=== PATIENT | male | born 1945 | race Caucasian/White ===

== ENCOUNTER 2020-08-05 11:21 | Emergency (ER) | payer MEDICARE, SELFPAY ==
[2020-08-05 11:36] VITALS: BP 157/86; PULSE 100; RESP 18; TEMP 36.3; O2SAT 96; BMI 25.1
--- NOTE | 2020-08-05 12:05 | MR_ITS ---
WS: [id number] MRI LUMBAR SPINE WITH AND WITHOUT CONTRAST. HISTORY: Pain in RIGHT leg. COMPARISON: None available. TECHNIQUE: Sagittal and axial multisequence imaging is submitted. Sagittal and axial T1 fat sat seque nces post-ProHance 17 cc IV. Mild increase in the cervical lordosis and thoracic kyphosis. Central shallow disc protrusion at T8-9 . No significant compression of the cord. Straightening of the normal lumbar lordosis. Moderate disc space narrowing and desiccation throughout the lumbar spine. Endplate osteophytes at all levels Conus terminates normally at L1-2 disc level. L1-L2: Annular disc bulging and osteophytosis. Mild facet disease. Mild subarticular recess narrowing . No significant stenosis. L2-L3: Annular disc bulging and osteophytic ridging. Annular fissure centrally with osteophytes and d isc encroachment upon the lateral recesses and subarticular recesses. There is mild central, subartic ular and foraminal narrowing. No high-grade stenosis. L3-L4: Diffuse annular disc bulging and osteophytic ridging. Moderate facet and ligamentum flavum hyp ertrophy. Complete effacement of CSF due to combination of factors as above. Severe central, subartic ular recess with moderate bilateral foraminal stenosis. L4-L5: Diffuse osteophytic ridging and annular disc bulging. Marked ligamentum flavum hypertrophy is asymmetric to the LEFT. Severe central and bilateral subarticular recess and subarticular stenosis. M oderate bilateral foraminal stenosis. L5-S1: Mild annular disc bulging and osteophytic ridging. Mild encroachment and narrowing of the suba rticular recesses with moderate RIGHT foraminal stenosis and mild on the LEFT. No evidence for discitis or osteomyelitis. No cord compression or mass identified. There is a large fluid collection incompletely visualized in the central pelvis which is probably the bladder. MR/MR lumbar spine wo/w con [id number] IMPRESSION: 1. Severe central, bilateral subarticular recess and lateral recess stenosis a t L4-5 with moderate bilateral foraminal stenosis due to combination of disc, o steophytes and facet disease. 2. Severe central, bilateral subarticular and lateral recess stenosis and mode rate bilateral foraminal stenosis at L3-4. 3. Moderate RIGHT foraminal stenosis at L5-S1. 4. No discitis or osteomyelitis. 5. No enhancing mass or lesion on the conus.
--- NOTE | 2020-08-05 12:41 | W.ED.EXTPRO ---
HPI - Extremity Problem General: Chief complaint: Extremity Problem,Nontraumatic Stated complaint: POSSIBLE BLOOD CLOT/ NUMBNESS IN RIGHT LEG Time Seen by Provider: 08/05/20 11:43 History of Present Illness: HPI Narrative: 75-year-old male states in the last couple days he cannot move the right leg. He has severe pain and loss of function he is not had any significant amount of swelling. Not had any fecal incontinence he has not had any significant urinary retention he was does have some BPH symptoms are worse when he stands or walks better with rest but still present. He is not noticed any back pain he is not had any injury. He has no previous history of peripheral artery disease. MD Complaint: extremity pain Onset (ago): day(s) Pain Consistency: constant Location: right Quality: sharp Radiation: distal Relieving factors: rest (Improves but does not resolve) Exacerbating factors: weight bearing and walking Associated symptoms: Deny arthralgias, chest pain, fever(s), myalgias, rash or short of breath Review of Systems Const: Denies: fever(s) ENMT: Denies: throat pain, ear or mastoid pain, nasal discharge or nasal congestion Card: Denies: chest pain, edema, dyspnea on exertion or orthopnea Resp: Denies: dyspnea, productive cough or non-productive cough GI: Denies: abdominal pain, nausea, vomiting, hematemesis, coffee ground emesis, diarrhea, constipation, bloating, hematochezia or melena : Denies: flank pain, dysuria, urinary frequency or urinary urgency Skin/Breast: Denies: rash or pruritus [facility] ED PFSH: Medical History (Updated 08/05/20 @ 14:46 by Georges Turpin DO) Diabetes Physical Exam Const: COMMON NORMALS: no acute distress GENERAL APPEARANCE: cooperative and comfortable ORIENTATION/CONSCIOUSNESS: Yes awake, Yes oriented to person, Yes oriented to place and Yes oriented to time HENMT: COMMON NORMALS: normocephalic, atraumatic and hearing grossly normal bilaterally HEAD & SCALP: normocephalic and atraumatic Neck/C-Spine: COMMON NORMALS: no JVD Resp: COMMON NORMALS: normal respiratory effort, No retractions, No use of accessory muscles and clear to auscultation bilaterally AUSCULTATION: clear to auscultation bilaterally Cardio: COMMON NORMALS: no JVD, regular rate, regular rhythm and No murmurs present (Cardio) RATE: regular rate RHYTHM: regular rhythm GI: COMMON NORMALS: Soft to palpation and No hepatosplenomegaly present AUSCULTATION: Yes normoactive bowel sounds PALPATION: Yes Soft to palpation, No Tenderness to palpation present (GI), No Guarding due to palpation present (GI) and Yes No hepatosplenomegaly present Extremity: COMMON NORMALS: normal to inspection, capillary refill normal, no clubbing, cyanosis or edema, no calf tenderness and no pedal edema Neuro: SENSORIUM/ORIENTATION: Yes oriented to person, Yes oriented to place and Yes oriented to time Skin: COMMON NORMALS: no rashes or lesions noted GENERAL SKIN EXAM: no rashes or lesions noted Course Vital Signs: Vital signs: Vital Signs Temperature 97.3 F L 08/05/20 11:36 Pulse Rate 100 08/05/20 11:36 Respiratory Rate 18 08/05/20 11:36 Blood Pressure 157/86 08/05/20 11:36 Pulse Oximetry 96 08/05/20 11:36 MDM - Extremity (Nontraumatic) MDM Narrative: Medical decision making narrative: Number disc disease with L4-5 nerve root compression. Patient is doing better he is able to walk and ambulate and use the leg again he has no evidence of cauda equina syndrome we will go ahead and discharge him home given steroids here and discharge home with p.o. steroids muscle relaxers he already has hydrocodone and we will get him set up with Dr. Richard return if has further problems or uncontrollable pain. Advised patient to not lift anything greater than 10 pounds and he should try to stay off his feet as much as possible. Lab Data: Labs: Lab Results 08/05/20 08/05/20 Range/Units 12:37 12:37 WBC 3.2 L (4.0-10.0) 10^3/ uL RBC 3.45 L (4.1-5.3) 10^6/u L Hgb 11.0 L (11.7-16.6) g/dL Hct 32.3 L (42.0-52.0) % MCV 93.6 (80-94) fL MCH 31.9 (28.0-34.0) pg MCHC 34.1 (30.0-36.0) g/dL RDW 14.5 (12.1-15.1) % Plt Count 117 L (130-400) 10^3/c mm MPV 10.8 H (7.4-10.4) fL Neut % (Auto) 60.9 % Lymph % (Auto) 21.9 % [place] % (Auto) 8.6 % Eos % (Auto) 7.7 % Baso % (Auto) 0.6 % Neut # (Auto) 1.97 (1.8-7.7) 10^3/u L Lymph # (Auto) 0.7 L (0.8-4.8) 10^3/u L [place] # (Auto) 0.3 (0.2-0.9) 10^3/u L Eos # (Auto) 0.3 (0.0-0.8) 10^3/u L Baso # (Auto) 0.0 (0.0-0.1) 10^3/u L Nucleated RBC % (a uto) 0 % Nucleated RBCs # 0.0 /100WBC Sodium Cancelled Potassium Cancelled Chloride Cancelled Carbon Dioxide Cancelled Anion Gap Cancelled BUN Cancelled Creatinine Cancelled GFR Calculation Cancelled Glucose Cancelled Calculated Osmolal ity Cancelled Calcium Cancelled Total Bilirubin Cancelled AST Cancelled ALT Cancelled Alkaline Phosphata se Cancelled Total Protein Cancelled Albumin Cancelled Globulin Cancelled Discharge Plan Discharge Patient Disposition: Home Clinical Impression: Lumbar disc herniation with radiculopathy Condition: Stable Prescriptions: New Zofran 4 mg tablet 4 mg PO Q6H PRN (Reason: nausea and vomiting) Qty: 15 RF: 0 diclofenac sodium 75 mg tablet,delayed release (DR/EC) 75 mg PO Q12H PRN (Reason: pain) Qty: 20 RF: 0 Medrol (Freddy) 4 mg tablets,dose pack See Rx Instructions .ROUTE .COMPLEX Qty: 21 RF: 0 tizanidine 2 mg capsule 2 mg PO Q8H PRN (Reason: muscle spasticity) Qty: 20 RF: 0 No Action levothyroxine 75 mcg tablet 75 mcg PO DAILY RF: 0 hydrocodone-acetaminophen 7.5-325 mg tablet 1 tab PO Q4H PRN (Reason: Pain) RF: 0 ferrous sulfate 325 mg (65 mg iron) tablet 325 mg PO DAILY RF: 0 omeprazole 20 mg capsule,delayed release(DR/EC) 20 mg PO DAILY RF: 0 olmesartan 5 mg tablet 5 mg PO DAILY RF: 0 rosuvastatin 10 mg tablet 10 mg PO DAILY RF: 0 Janumet XR 50-1,000 mg tablet, ER multiphase 24 hr 1 tab PO BID RF: 0 Discharge Orders: Discharge Order (Routine); Ordered 08/05/20 Ordered By: Georges Turpin Referrals: Jacome,BENNY ZamoranoN [Primary Care Provider] - Coding Level of Care Code ED Warehouse Order Selector for Chg Fwd Exam Comprehensive
[2020-08-05 13:19] LABS: Basophils % 0.6 %; Eosinophils # 0.3 10^3/uL (0.0-0.8); Eosinophils % 7.7 %; Hematocrit 32.3 % (42.0-52.0); Lymphocytes # 0.7 10^3/uL (0.8-4.8); Lymphocytes % 21.9 %; Mean Corpuscular HGB Conc 34.1 g/dL (30.0-36.0); Mean Corpuscular Hemoglobin 31.9 pg (28.0-34.0); Mean Corpuscular Volume 93.6 fL (80-94); Mean Platelet Volume 10.8 fL (7.4-10.4); Monocytes # 0.3 10^3/uL (0.2-0.9); Monocytes % 8.6 %; Neutrophils # 1.97 10^3/uL (1.8-7.7); Neutrophils % 60.9 %; Nucleated Red Blood Cells % 0 %; Platelet Count 117 10^3/cmm (130-400); Red Blood Count 3.45 10^6/uL (4.1-5.3); Red Cell Distribution Width 14.5 % (12.1-15.1); White Blood Count 3.2 10^3/uL (4.0-10.0)
[2020-08-05] MEDS: dexamethasone 4 mg/mL INJ 10 MG IVP (15:21)
[2020-08-05 15:28] VITALS: BP 161/86; PULSE 90; RESP 18; O2SAT 98
--- NOTE | 2020-08-05 16:27 | DCPLANNER ---
focused factory manager was asked to schedule a follow up appointment for patient with ortho. focused factory manager called the ortho clinic, spoke with Blanca, gave clinic patients information. focused factory manager was told that patients information would be printed and reviewed. Clinic will call patient with appointment information.
--- NOTE | 2020-08-09 14:33 | DCPLANNER ---
Patient had an appointment scheduled for 08.09.20 with ortho - patient did attend the appointment.
== END 2020-08-05 15:28 | disposition home or self-care (01) ==
PROVIDERS: Emergency Provider Family Medicine; PCP Nurse Practitioner Family
DX: M51.16 Intervertebral disc disorders with radiculopathy, lumbar region (principal); E11.9 Type 2 diabetes mellitus without complications
CPT/HCPCS: 12345; 72158; 85025; 96374; 96375; 99282; 99283; A9579; J1100

== ENCOUNTER → 2020-08-09 10:29 | Outpatient (BNVA) | payer MEDICARE, SELFPAY | PROVIDERS: PCP Nurse Practitioner Family; Referring Provider Nurse Practitioner Family; Visit Provider Orthopaedic Surgery | DX: M51.16 Intervertebral disc disorders with radiculopathy, lumbar region (principal); M48.061 Spinal stenosis, lumbar region without neurogenic claudication | CPT/HCPCS: 72114 ==

== ENCOUNTER → 2020-08-10 12:13 | Outpatient (BNVA) | payer MEDICARE, SELFPAY | PROVIDERS: PCP Nurse Practitioner Family; Referring Provider Orthopaedic Surgery; Visit Provider Anesthesiology Pain Medicine | DX: M48.062 Spinal stenosis, lumbar region with neurogenic claudication (principal); M51.17 Intervertebral disc disorders with radiculopathy, lumbosacral region; Z79.891 Long term (current) use of opiate analgesic | CPT/HCPCS: 99204 ==

== ENCOUNTER → 2020-08-17 12:26 | Outpatient (BNVA) | payer MEDICARE, SELFPAY | PROVIDERS: PCP Nurse Practitioner Family; Visit Provider Anesthesiology Pain Medicine | DX: M54.16 Radiculopathy, lumbar region (principal); M48.062 Spinal stenosis, lumbar region with neurogenic claudication; E11.9 Type 2 diabetes mellitus without complications | CPT/HCPCS: 64483; 64484; J1100; J3490 ==

== ENCOUNTER 2020-08-19 16:28 | Emergency (ER) | payer MEDICARE, SELFPAY ==
[2020-08-19] VITALS (9 sets, daily range): BP systolic 134–177; BP diastolic 74–99; PULSE 101–116; RESP 14–29; TEMP 37.2–38.6; O2SAT 92–96; BMI 26.9
--- NOTE | 2020-08-19 16:45 | CTR_ITS ---
PROCEDURE INFORMATION: Exam: CT Head Without Contrast Exam date and time: 08/19/2020 4:46 PM Age: 75 years old Clinical indication: Weakness, facial; Patient HX: R facial droop AMS confusion lkw 24 hrs ago; Additional info: Stroke like symptoms TECHNIQUE: Imaging protocol: Computed tomography of the head without contrast. Radiation optimization: All CT scans at this facility use at least one of these dose optimization techniques: automated exposure control; mA and/or kV adjustment per patient size (includes targeted exams where dose is matched to clinical indication); or iterative reconstruction. COMPARISON: No relevant prior studies available. RADIATION DOSE METRICS: Total DLP (mGy-cm): 897.44 FINDINGS: Brain: Mild diffuse cortical volume loss. Mild hypodensities in supratentorial periventricular and subcortical white matter. No intracranial hemorrhage. Cerebral ventricles: No ventriculomegaly. Bones/joints: Unremarkable. No acute fracture. Paranasal sinuses: Mucosal thickening in the right maxillary sinus. Mastoid air cells: Visualized mastoid air cells are well aerated. Vasculature: No hyperdense artery. Soft tissues: Unremarkable. CT/CT head wo con* [id number] IMPRESSION: 1. No acute intracranial abnormality. 2. Mild microangiopathy. Radiation Dose CTDIVOL = (mGy): DLP = 897.44 (mGy-cm)
--- NOTE | 2020-08-19 17:11 | XRR_ITS ---
PROCEDURE INFORMATION: Exam: XR Chest, 1 View Exam date and time: 08/19/2020 6:02 PM Age: 75 years old Clinical indication: Cough; Patient HX: Best possible image; Additional info: Dyspnea/cough TECHNIQUE: Imaging protocol: XR of the chest Views: 1 view. COMPARISON: CR Chest 2 views* [id number] 04/01/2019 11:14 AM FINDINGS: Lungs: Subtle ground-glass opacities in both lung bases. The central and upper lung zones are clear. Pleural space: Unremarkable. No pleural effusion. No pneumothorax. Heart/Mediastinum: Unremarkable. No cardiomegaly. Bones/joints: Unremarkable. XR/XR chest 1V portable [id number] IMPRESSION: Suspected mild bibasilar pneumonia.
[2020-08-19] MEDS: ondansetron 2 mg/ML SDV 2 mL 4 MG IVP (17:24)
[2020-08-19 17:31] LABS: Basophils % 0.3 %; Eosinophils % 0.3 %; Hematocrit 35.7 % (42.0-52.0); Hemoglobin 12.5 g/dL (11.7-16.6); Lymphocytes # 0.4 10^3/uL (0.8-4.8); Lymphocytes % 10.2 %; Mean Corpuscular Hemoglobin 31.9 pg (28.0-34.0); Mean Corpuscular Volume 91.1 fL (80-94); Mean Platelet Volume 10.3 fL (7.4-10.4); Monocytes # 0.4 10^3/uL (0.2-0.9); Monocytes % 9.4 %; Neutrophils # 2.91 10^3/uL (1.8-7.7); Neutrophils % 78.5 %; Nucleated Red Blood Cells % 0 %; Platelet Count 131 10^3/cmm (130-400); Red Blood Count 3.92 10^6/uL (4.1-5.3); Red Cell Distribution Width 14.2 % (12.1-15.1); White Blood Count 3.7 10^3/uL (4.0-10.0)
[2020-08-19 17:41] LABS: Alanine Aminotransferase 47 U/L (0-41); Albumin Level 3.4 g/dL (3.5-5.2); Alkaline Phosphatase 105 IU/L (40-130); Anion Gap 14.7 (5-19); Aspartate Amino Transferase 57 U/L (0-40); Blood Urea Nitrogen 9 mg/dL (8-23); Calcium 8.4 mg/dL (8.5-10.5); Carbon Dioxide 25 mmol/L (22-29); Chloride 97 mmol/L (98-107); Creatine Phosphokinase 58 U/L (39-308); Globulin 2.4 g/dL (1.3-4.6); Glucose 98 mg/dL (65-115); Lipase 37 U/L (13-60); Magnesium 1.5 mg/dL (1.7-2.3); Osmolality Calculated 275 mOsm/kg (285-295); Potassium 3.7 mmol/L (3.5-5.1); Sodium 133 mmol/L (136-145); Total Bilirubin 1.6 mg/dL (0.15-1.2); Total Protein 5.8 g/dL (6.6-8.7)
--- NOTE | 2020-08-19 18:21 | CTR_ITS ---
PROCEDURE INFORMATION: Exam: CT Lumbar Spine Without Contrast Exam date and time: 08/19/2020 6:22 PM Age: 75 years old Clinical indication: Patient HX: C/O rle pain; Additional info: R radicular leg pain TECHNIQUE: Imaging protocol: Computed tomography images of the lumbar spine without contrast. Radiation optimization: All CT scans at this facility use at least one of these dose optimization techniques: automated exposure control; mA and/or kV adjustment per patient size (includes targeted exams where dose is matched to clinical indication); or iterative reconstruction. COMPARISON: MR lumbar spine wo/w con [id number] 08/05/2020 1:08 PM RADIATION DOSE METRICS: Total DLP (mGy-cm): 2163.18 FINDINGS: Vertebrae: The vertebral body alignment and stature is maintained. The facets are intact with hypertrophic degenerative changes, greatest at L3-L4, L4-L5, and L5-S1. Multilevel anterior and posterior endplate spurring. L1-L2: Mild disc bulge. Degenerative facets. Mild bilateral foraminal stenosis. Mild central canal stenosis. L2-L3: Circumferential disc bulge. Degenerative facets. No foraminal stenosis. Moderate-severe central canal stenosis. L3-L4: Circumferential disc bulge. Degenerative facets. Severe left and mild right foraminal stenosis. Severe central canal stenosis. L4-L5: Circumferential disc bulge. Degenerative facets. Moderate bilateral foraminal stenosis. Severe central canal stenosis. L5-S1: Mild disc bulge. Degenerative facets. Severe right and moderate left foraminal stenosis. No central canal stenosis. Soft tissues: Unremarkable. CT/CT lumbar spine wo con* [id number] IMPRESSION: 1. Discogenic, spondylitic, and hypertrophic facet degenerative changes contribute to multilevel central canal and foraminal stenosis as described. 2. The most significant central canal stenosis is moderate to severe at L2-L3 and severe at L3-L4 and L4-L5. 3. The most significant foraminal stenosis is severe on the left at L3-L4 and severe on the right at L5-S1. Radiation Dose CTDIVOL = (mGy): DLP = 2163.18 (mGy-cm)
--- NOTE | 2020-08-19 18:21 | W.ED.NEUROSD ---
Documented by User: Georges Turpin DO 08/20/20 09:15 HPI - Neuro Symptoms/Deficit General: Chief Complaint: Neuro Symptoms/Deficit Stated Complaint: POSSIBLE STROKE Time Seen by Provider: 08/19/20 16:34 History of Present Illness: HPI Narrative: 75-year-old male presents emergency room complaining of weakness in his legs with pain in his right leg in particular. He is very difficult time moving his legs. His last known well time was yesterday at around 4 in the afternoon. Neighbors went to check on him and called 911. On arrival here he moves both of his extremities well he answers questions appropriately follows all commands but does states he does not feel good he is also noted to have a fever and has pain and weakness in his right leg he can lift his left leg to cross his legs but does not lift the right leg at all he will not lift his leg off the bed for testing at all. Onset (ago): unknown Timing confirmed by: other (Neighbors) Location: right leg Severity: moderate Quality: weak Relieving factors: none Exacerbating factors: none Context: found down On Anticoagulants: No Associated symptoms: Reports malaise and weakness; Deny chest pain, cough, diaphoresis, fevers/chills, headache(s), anorexia, nausea, seizures, short of breath, syncope, tingling, vertigo or vomiting Treatments Prior to Arrival: none Review of Systems Const: Reports: malaise; Denies: diaphoresis Card: Denies: chest pain or syncope Resp: Denies: dyspnea, productive cough or non-productive cough GI: Denies: nausea or vomiting : Denies: flank pain, dysuria, urinary frequency or urinary urgency Neuro: Denies: headache(s) or vertigo PFSH ED PFSH: Medical History Diabetes Social History Smoking and tobacco status: never smoked Second hand smoke exposure: No Alcohol intake: former History of recent travel: No NIH stroke score NIHSS: Level Of Consciousness - 1a: 1 Level Of Consciousness Questions - 1b: Both Correct Level Of Consciousness Commands - 1c: Both Correct Best Gaze - 2: Normal Visual Vera - 3: No Visual Loss Facial Palsy - 4: Normal Motor Arm Right - 5: No Drift Motor Arm Left - 5: No Drift Motor Leg Right - 6: Effort Against Whiting Motor Leg Left - 6: Effort Against Whiting Limb Ataxia - 7: Present In Two Limbs Sensory - 8: Normal Best Language - 9: No Aphasia Dysarthia - 10: Mild/Moderate Dysarthia Extinction And Inattention - 11: 0 Score: Total Score: 8 Physical Exam Const: COMMON NORMALS: no acute distress GENERAL APPEARANCE: cooperative and comfortable ORIENTATION/CONSCIOUSNESS: Yes awake, Yes oriented to person, Yes oriented to place and Yes oriented to time HENMT: COMMON NORMALS: normocephalic, atraumatic and hearing grossly normal bilaterally HEAD & SCALP: normocephalic and atraumatic Eye: COMMON NORMALS: Equal, round and reactive pupils present, EOMs intact bilaterally, conjunctivae normal and no scleral icterus CONJUNCTIVA: Yes conjunctivae normal PUPIL: Yes Equal, round and reactive pupils present Neck/C-Spine: COMMON NORMALS: full ROM, no lymphadenopathy, supple and no JVD Resp: COMMON NORMALS: normal respiratory effort, No retractions, No use of accessory muscles and clear to auscultation bilaterally AUSCULTATION: clear to auscultation bilaterally Cardio: COMMON NORMALS: no JVD, regular rate, regular rhythm and No murmurs present (Cardio) RATE: regular rate RHYTHM: regular rhythm GI: COMMON NORMALS: Soft to palpation and No hepatosplenomegaly present AUSCULTATION: Yes normoactive bowel sounds PALPATION: Yes Soft to palpation, No Tenderness to palpation present (GI), No Guarding due to palpation present (GI) and Yes No hepatosplenomegaly present Extremity: COMMON NORMALS: normal to inspection, capillary refill normal, no clubbing, cyanosis or edema, no calf tenderness and no pedal edema Neuro: SENSORIUM/ORIENTATION: Yes oriented to person, Yes oriented to place and Yes oriented to time Skin: COMMON NORMALS: no rashes or lesions noted GENERAL SKIN EXAM: no rashes or lesions noted Course Vital Signs: Vital signs: Vital Signs Temperature 99 F 08/19/20 21:00 Pulse Rate 102 H 08/19/20 23:00 Respiratory Rate 17 08/19/20 23:00 Blood Pressure 136/80 08/19/20 23:00 Pulse Oximetry 95 08/19/20 23:00 MDM - Neuro Symptoms/Deficit MDM Narrative: Medical decision making narrative: Patient presents with what appears to be altered mental status with right lower leg weakness stroke score is 8 however some of it is just bilateral weakness in his lower extremities. He has no facial palsy and answers questions appropriately. He has a fever as well as mildly tachycardic and very mild depressed oxygen saturations. Discussed with Dr. Goddard, care transferred at change of shift see his note for final diagnosis and disposition Lab Data: Labs: Lab Results 08/19/20 08/19/20 08/19/20 Range/Units 17:00 17:00 17:00 WBC 3.7 L (4.0-10.0) 10^3/ uL RBC 3.92 L (4.1-5.3) 10^6/u L Hgb 12.5 (11.7-16.6) g/dL Hct 35.7 L (42.0-52.0) % MCV 91.1 (80-94) fL MCH 31.9 (28.0-34.0) pg MCHC 35.0 (30.0-36.0) g/dL RDW 14.2 (12.1-15.1) % Plt Count 131 (130-400) 10^3/c mm MPV 10.3 (7.4-10.4) fL Neut % (Auto) 78.5 % Lymph % (Auto) 10.2 % Mitchell % (Auto) 9.4 % Eos % (Auto) 0.3 % Baso % (Auto) 0.3 % Neut # (Auto) 2.91 (1.8-7.7) 10^3/u L Lymph # (Auto) 0.4 L (0.8-4.8) 10^3/u L Mitchell # (Auto) 0.4 (0.2-0.9) 10^3/u L Eos # (Auto) 0.0 (0.0-0.8) 10^3/u L Baso # (Auto) 0.0 (0.0-0.1) 10^3/u L Nucleated RBC % (a uto) 0 % Nucleated RBCs # 0.0 /100WBC Sodium 133 L (136-145) mmol/L Potassium 3.7 (3.5-5.1) mmol/L Chloride 97 L (98-107) mmol/L Carbon Dioxide 25 (22-29) mmol/L Anion Gap 14.7 (5-19) BUN 9 (8-23) mg/dL Creatinine 0.6 L (0.7-1.2) mg/dL GFR Calculation Not Reportable Glucose 98 (65-115) mg/dL Calculated Osmolal ity 275 L (285-295) mOsm/k g Lactic Acid 2.0 (0.5-2.2) mmol/L Calcium 8.4 L (8.5-10.5) mg/dL Magnesium 1.5 L (1.7-2.3) mg/dL Total Bilirubin 1.6 H (0.15-1.2) mg/dL AST 57 H (0-40) U/L ALT 47 H (0-41) U/L Alkaline Phosphata se 105 (40-130) IU/L Creatine Kinase 58 (39-308) U/L Total Protein 5.8 L (6.6-8.7) g/dL Albumin 3.4 L (3.5-5.2) g/dL Globulin 2.4 (1.3-4.6) g/dL Lipase 37 (13-60) U/L Urine Color (Yellow) Urine Appearance (CLEAR) Urine pH (5-7) Ur Specific Gravit y (1.005-1.030) Urine Protein (Negative) Urine Glucose (UA) (Normal) Urine Ketones (Negative) Urine Blood (Negative) Urine Nitrate (Negative) Urine Bilirubin (Negative) Urine Urobilinogen (Negative) mg/dL Ur Leukocyte Ashley ase (Negative) SARS-CoV-2 Ag (Rap id) (Negative) 08/19/20 08/19/20 Range/Units 20:02 20:03 WBC (4.0-10.0) 10^3/ uL RBC (4.1-5.3) 10^6/u L Hgb (11.7-16.6) g/dL Hct (42.0-52.0) % MCV (80-94) fL MCH (28.0-34.0) pg MCHC (30.0-36.0) g/dL RDW (12.1-15.1) % Plt Count (130-400) 10^3/c mm MPV (7.4-10.4) fL Neut % (Auto) % Lymph % (Auto) % Mitchell % (Auto) % Eos % (Auto) % Baso % (Auto) % Neut # (Auto) (1.8-7.7) 10^3/u L Lymph # (Auto) (0.8-4.8) 10^3/u L Mitchell # (Auto) (0.2-0.9) 10^3/u L Eos # (Auto) (0.0-0.8) 10^3/u L Baso # (Auto) (0.0-0.1) 10^3/u L Nucleated RBC % (a uto) % Nucleated RBCs # /100WBC Sodium (136-145) mmol/L Potassium (3.5-5.1) mmol/L Chloride (98-107) mmol/L Carbon Dioxide (22-29) mmol/L Anion Gap (5-19) BUN (8-23) mg/dL Creatinine (0.7-1.2) mg/dL GFR Calculation Glucose (65-115) mg/dL Calculated Osmolal ity (285-295) mOsm/k g Lactic Acid (0.5-2.2) mmol/L Calcium (8.5-10.5) mg/dL Magnesium (1.7-2.3) mg/dL Total Bilirubin (0.15-1.2) mg/dL AST (0-40) U/L ALT (0-41) U/L Alkaline Phosphata se (40-130) IU/L Creatine Kinase (39-308) U/L Total Protein (6.6-8.7) g/dL Albumin (3.5-5.2) g/dL Globulin (1.3-4.6) g/dL Lipase (13-60) U/L Urine Color Yellow (Yellow) Urine Appearance Clear (CLEAR) Urine pH 6.5 (5-7) Ur Specific Gravit y 1.015 (1.005-1.030) Urine Protein Neg (Negative) Urine Glucose (UA) 4+ H (Normal) Urine Ketones Negative (Negative) Urine Blood Neg (Negative) Urine Nitrate Negative (Negative) Urine Bilirubin Neg (Negative) Urine Urobilinogen 4 H (Negative) mg/dL Ur Leukocyte Ashley ase Negative (Negative) SARS-CoV-2 Ag (Rap id) Positive H (Negative) Discharge Plan Discharge Patient Disposition: Left Against Medical Advice Clinical Impression: Pneumonia due to 2019 novel coronavirus Condition: Stable Prescriptions: New dexamethasone 6 mg tablet 6 mg PO DAILY Qty: 5 RF: 0 No Action cephalexin [Keflex] 500 mg capsule 500 mg PO BID 7 Days Qty: 14 RF: 0 silver sulfadiazine [Silvadene] 1 % cream 1 applic topical BID 14 Days Qty: 20 RF: 0 gabapentin 100 mg capsule 100 mg PO BID Qty: 60 RF: 0 levothyroxine 75 mcg tablet 75 mcg PO DAILY RF: 0 hydrocodone-acetaminophen 7.5-325 mg tablet 1 tab PO Q4H PRN (Reason: Pain) RF: 0 ferrous sulfate 325 mg (65 mg iron) tablet 325 mg PO DAILY RF: 0 omeprazole 20 mg capsule,delayed release(DR/EC) 20 mg PO DAILY RF: 0 olmesartan 5 mg tablet 5 mg PO DAILY RF: 0 rosuvastatin 10 mg tablet 10 mg PO DAILY RF: 0 Janumet XR 50-1,000 mg tablet, ER multiphase 24 hr 1 tab PO BID RF: 0 ondansetron HCl [Zofran] 4 mg tablet 4 mg PO Q6H PRN (Reason: nausea and vomiting) Qty: 15 RF: 0 diclofenac sodium 75 mg tablet,delayed release (DR/EC) 75 mg PO Q12H PRN (Reason: pain) Qty: 20 RF: 0 tizanidine 2 mg capsule 2 mg PO Q8H PRN (Reason: muscle spasticity) Qty: 20 RF: 0 Referrals: Ayaz,FABIOLA Zamorano [Primary Care Provider] - 1-3 days Discharge Diet: Advance as tolerated Discharge Activity: Increase activity as tolerated Patient Instructions: Viral Pneumonia (ED) Activity Restrictions/Additional Instructions: Medications as directed. Return for changes in mental status, worsening shortness of breath, inability to control fever, other concerning symptoms. Check your temperature often, and treat fevers greater than 100 appropriately with Tylenol. Have a family member called to check on you several times a day to ensure that you are doing okay. Coding Level of Care Code ED Gift Consultant for Chg Fwd Documented by User: Sean Goddard DO 08/20/20 04:33 HPI - Neuro Symptoms/Deficit General: Chief Complaint: Neuro Symptoms/Deficit Stated Complaint: POSSIBLE STROKE Time Seen by Provider: 08/19/20 16:34 PFSH ED PFSH: Medical History Diabetes Social History Smoking and tobacco status: never smoked Second hand smoke exposure: No Alcohol intake: former History of recent travel: No Course Vital Signs: Vital signs: Vital Signs Temperature 99 F 08/19/20 21:00 Pulse Rate 102 H 08/19/20 23:00 Respiratory Rate 17 08/19/20 23:00 Blood Pressure 136/80 08/19/20 23:00 Pulse Oximetry 95 08/19/20 23:00 MDM - Neuro Symptoms/Deficit MDM Narrative: Medical decision making narrative: 75-year-old male checked out to me at shift change by Dr. Turpin. This patient was complaining of pain and weakness in his legs as well as an upper extremity. He had a fever of 101.5. He was not feeling well. During his ER course, he urinated on the CT table. He asked similar questions several times. He is, however, awake, alert, and oriented. He knows his situation. His mental status improved even more after his temperature came down below 100. His white blood cell count is 3.7. His sodium is 133. His head CT is negative. He does not have a urinary tract infection. He has mild bilateral pneumonitis on chest x-ray, and a positive Covid rapid antigen here. I suspect the cause of his mild mental status change and not feeling well is COVID-19. He lives alone. I went over the patient's results with him, expressed my concern that he is likely to get more sick as opposed to less sick as he is early in this illness. He has x-ray findings. He is not hypoxic however. I expressed the need to put him in the hospital. He said that he did not want to stay. I reiterated that if he gets confused at home, while he lives alone, he may not be able to take care of himself well, and can get sicker very quickly and possibly end up dying. He states, I rather at home and stay here in the hospital . Out of our concern, I contacted the patient's sister, who is living out of town at the moment. I told her the circumstances, which were essentially that he is awake and alert enough to deny treatment, and we may not treat him against his will. We expressed our concern about him going home alone. Have to be quarantined. She states family members can call and check on him frequently. The situation is extremely concerning, as he is likely not to do well clinically, but our hands are tied at this point because of his decision. He signed an AMA form, and left AGAINST MEDICAL ADVICE. Lab Data: Labs: Lab Results 08/19/20 08/19/20 08/19/20 Range/Units 17:00 17:00 17:00 WBC 3.7 L (4.0-10.0) 10^3/ uL RBC 3.92 L (4.1-5.3) 10^6/u L Hgb 12.5 (11.7-16.6) g/dL Hct 35.7 L (42.0-52.0) % MCV 91.1 (80-94) fL MCH 31.9 (28.0-34.0) pg MCHC 35.0 (30.0-36.0) g/dL RDW 14.2 (12.1-15.1) % Plt Count 131 (130-400) 10^3/c mm MPV 10.3 (7.4-10.4) fL Neut % (Auto) 78.5 % Lymph % (Auto) 10.2 % Mitchell % (Auto) 9.4 % Eos % (Auto) 0.3 % Baso % (Auto) 0.3 % Neut # (Auto) 2.91 (1.8-7.7) 10^3/u L Lymph # (Auto) 0.4 L (0.8-4.8) 10^3/u L Mitchell # (Auto) 0.4 (0.2-0.9) 10^3/u L Eos # (Auto) 0.0 (0.0-0.8) 10^3/u L Baso # (Auto) 0.0 (0.0-0.1) 10^3/u L Nucleated RBC % (a uto) 0 % Nucleated RBCs # 0.0 /100WBC Sodium 133 L (136-145) mmol/L Potassium 3.7 (3.5-5.1) mmol/L Chloride 97 L (98-107) mmol/L Carbon Dioxide 25 (22-29) mmol/L Anion Gap 14.7 (5-19) BUN 9 (8-23) mg/dL Creatinine 0.6 L (0.7-1.2) mg/dL GFR Calculation Not Reportable Glucose 98 (65-115) mg/dL Calculated Osmolal ity 275 L (285-295) mOsm/k g Lactic Acid 2.0 (0.5-2.2) mmol/L Calcium 8.4 L (8.5-10.5) mg/dL Magnesium 1.5 L (1.7-2.3) mg/dL Total Bilirubin 1.6 H (0.15-1.2) mg/dL AST 57 H (0-40) U/L ALT 47 H (0-41) U/L Alkaline Phosphata se 105 (40-130) IU/L Creatine Kinase 58 (39-308) U/L Total Protein 5.8 L (6.6-8.7) g/dL Albumin 3.4 L (3.5-5.2) g/dL Globulin 2.4 (1.3-4.6) g/dL Lipase 37 (13-60) U/L Urine Color (Yellow) Urine Appearance (CLEAR) Urine pH (5-7) Ur Specific Gravit y (1.005-1.030) Urine Protein (Negative) Urine Glucose (UA) (Normal) Urine Ketones (Negative) Urine Blood (Negative) Urine Nitrate (Negative) Urine Bilirubin (Negative) Urine Urobilinogen (Negative) mg/dL Ur Leukocyte Ashley ase (Negative) SARS-CoV-2 Ag (Rap id) (Negative) 08/19/20 08/19/20 Range/Units 20:02 20:03 WBC (4.0-10.0) 10^3/ uL RBC (4.1-5.3) 10^6/u L Hgb (11.7-16.6) g/dL Hct (42.0-52.0) % MCV (80-94) fL MCH (28.0-34.0) pg MCHC (30.0-36.0) g/dL RDW (12.1-15.1) % Plt Count (130-400) 10^3/c mm MPV (7.4-10.4) fL Neut % (Auto) % Lymph % (Auto) % Mitchell % (Auto) % Eos % (Auto) % Baso % (Auto) % Neut # (Auto) (1.8-7.7) 10^3/u L Lymph # (Auto) (0.8-4.8) 10^3/u L Mitchell # (Auto) (0.2-0.9) 10^3/u L Eos # (Auto) (0.0-0.8) 10^3/u L Baso # (Auto) (0.0-0.1) 10^3/u L Nucleated RBC % (a uto) % Nucleated RBCs # /100WBC Sodium (136-145) mmol/L Potassium (3.5-5.1) mmol/L Chloride (98-107) mmol/L Carbon Dioxide (22-29) mmol/L Anion Gap (5-19) BUN (8-23) mg/dL Creatinine (0.7-1.2) mg/dL GFR Calculation Glucose (65-115) mg/dL Calculated Osmolal ity (285-295) mOsm/k g Lactic Acid (0.5-2.2) mmol/L Calcium (8.5-10.5) mg/dL Magnesium (1.7-2.3) mg/dL Total Bilirubin (0.15-1.2) mg/dL AST (0-40) U/L ALT (0-41) U/L Alkaline Phosphata se (40-130) IU/L Creatine Kinase (39-308) U/L Total Protein (6.6-8.7) g/dL Albumin (3.5-5.2) g/dL Globulin (1.3-4.6) g/dL Lipase (13-60) U/L Urine Color Yellow (Yellow) Urine Appearance Clear (CLEAR) Urine pH 6.5 (5-7) Ur Specific Gravit y 1.015 (1.005-1.030) Urine Protein Neg (Negative) Urine Glucose (UA) 4+ H (Normal) Urine Ketones Negative (Negative) Urine Blood Neg (Negative) Urine Nitrate Negative (Negative) Urine Bilirubin Neg (Negative) Urine Urobilinogen 4 H (Negative) mg/dL Ur Leukocyte Ashley ase Negative (Negative) SARS-CoV-2 Ag (Rap id) Positive H (Negative) Discharge Plan Discharge Patient Disposition: Left Against Medical Advice Clinical Impression: Pneumonia due to 2019 novel coronavirus Condition: Stable Prescriptions: New dexamethasone 6 mg tablet 6 mg PO DAILY Qty: 5 RF: 0 No Action cephalexin [Keflex] 500 mg capsule 500 mg PO BID 7 Days Qty: 14 RF: 0 silver sulfadiazine [Silvadene] 1 % cream 1 applic topical BID 14 Days Qty: 20 RF: 0 gabapentin 100 mg capsule 100 mg PO BID Qty: 60 RF: 0 levothyroxine 75 mcg tablet 75 mcg PO DAILY RF: 0 hydrocodone-acetaminophen 7.5-325 mg tablet 1 tab PO Q4H PRN (Reason: Pain) RF: 0 ferrous sulfate 325 mg (65 mg iron) tablet 325 mg PO DAILY RF: 0 omeprazole 20 mg capsule,delayed release(DR/EC) 20 mg PO DAILY RF: 0 olmesartan 5 mg tablet 5 mg PO DAILY RF: 0 rosuvastatin 10 mg tablet 10 mg PO DAILY RF: 0 Janumet XR 50-1,000 mg tablet, ER multiphase 24 hr 1 tab PO BID RF: 0 ondansetron HCl [Zofran] 4 mg tablet 4 mg PO Q6H PRN (Reason: nausea and vomiting) Qty: 15 RF: 0 diclofenac sodium 75 mg tablet,delayed release (DR/EC) 75 mg PO Q12H PRN (Reason: pain) Qty: 20 RF: 0 tizanidine 2 mg capsule 2 mg PO Q8H PRN (Reason: muscle spasticity) Qty: 20 RF: 0 Referrals: Lona Jacome APN [Primary Care Provider] - 1-3 days Discharge Diet: Advance as tolerated Discharge Activity: Increase activity as tolerated Patient Instructions: Viral Pneumonia (ED) Activity Restrictions/Additional Instructions: Medications as directed. Return for changes in mental status, worsening shortness of breath, inability to control fever, other concerning symptoms. Check your temperature often, and treat fevers greater than 100 appropriately with Tylenol. Have a family member called to check on you several times a day to ensure that you are doing okay. Coding Level of Care Code ED Gift Consultant for Robbie Agustin
[2020-08-19] MEDS: levofloxacin-dextrose 5 % 750 MG/150 ML PREMIX 100 MG IV (19:23)
[2020-08-19 20:51] LABS: Add Urine Microscopic? NO
[2020-08-19 20:58] LABS: Bilirubin Urine Neg (Negative); Blood Urine Neg (Negative); Glucose Urine UA 4+ (Normal); Ketones Urine Negative (Negative); Leukocyte Esterase Urine Negative (Negative); Nitrate Urine Negative (Negative); Protein Urine Neg (Negative); Specific Gravity, Urine 1.015 (1.005-1.030); Urine Appearance Clear (CLEAR); Urine Color Yellow (Yellow); Urobilinogen Urine 4 mg/dL (Negative); pH Urine 6.5 (5-7)
[2020-08-19 21:15] LABS: SARS Covid-2 Antigen Positive (Negative)
[2020-08-19] MEDS: acetaminophen 500 mg Tablet 1000 MG PO (21:20)
--- NOTE | 2020-08-19 21:28 | PC.NURSE ---
patient repositioned by nurses for comfort
--- NOTE | 2020-08-19 22:21 | PC.SOCIAL ---
Patient needing transportation home. Spoke to Shi at [facility] and got quote. Patient is agreeable to pay the $43 for the ride home. They will be over in 15 minutes. Nursing aware.
[2020-08-19] MEDS: dexamethasone 4 mg Tablet 6 MG PO (22:43)
== END 2020-08-19 23:00 | disposition left against medical advice (07) ==
PROVIDERS: Family Medicine; Emergency Provider Emergency Medicine; PCP Nurse Practitioner Family
DX: U07.1 COVID-19 (principal); J12.89 Other viral pneumonia; E11.9 Type 2 diabetes mellitus without complications; Z53.21 Procedure and treatment not carried out due to patient leaving prior to being seen by health care provider
CPT/HCPCS: 12345; 36415; 70450; 71045; 72131; 80053; 81003; 82550; 83605; 83690; 83735; 85025; 87040; 87426; 96365; 96375; 99283; 99284; J1956; J2405; J8540

== ENCOUNTER 2021-03-07 09:27 | Emergency (ER) | payer MEDICARE, SELFPAY ==
[2021-03-07 09:28] VITALS: BP 163/81; PULSE 69; RESP 20; TEMP 36.7; O2SAT 96; BMI 26.5
--- NOTE | 2021-03-07 09:39 | XR_ITS ---
WS: [id number] PORTABLE CHEST HISTORY: dyspnea/cough COMPARISON: 08/19/2020 Lungs lungs are decreased. Mild pulmonary congestion. Small LEFT pleural effusion is likely. Cardiac size: Normal. Mediastinum/Aorta: Normal mediastinum. No osseous abnormality seen. XR/XR chest 1V portable [id number] IMPRESSION: Mild pulmonary venous congestion.
--- NOTE | 2021-03-07 09:54 | W.ED.GENADLT ---
HPI - General Adult General: Chief complaint: General Medical Stated complaint: GENERALIZED WEAKNESS Time Seen by Provider: 03/07/21 09:28 History of Present Illness: HPI narrative: 75-year-old male comes in today complaining of generalized chest pain without radiation overall states he just does not feel well. He is very vague. Is very difficult to get out of him once currently Eventually was able to get from he is diabetic he was previously on insulin and stopped because he did not like to getting himself insulin shots he is taking Janumet now. He is also on gabapentin takes 100 mg twice a day, he relates that he takes hydrocodone regularly at 1 point stating he takes it all the time another point stating he takes it left and right but when I asked him specifically the most I can get out of him that he takes 1 pill twice a day. Patient does have a history of liver cirrhosis that is quite advanced he gets paracentesis every 2 weeks at [facility] from corsage maker. Its been approximately 2 weeks since he has had a paracentesis. Onset (ago): hour(s) Location: chest and abdomen Severity: mild Quality: aching Pain Consistency: intermittent Relieving factors: none Exacerbating factors: none Associated symptoms: Reports decreased appetite; Deny chest pain, confusion, cough, diaphoresis, dyspnea, fevers/chills, headache(s), malaise, nausea, rash, palpitations, seizures, short of breath, syncope, vomiting or weakness Treatments prior to arrival: none Review of Systems Const: Denies: malaise or diaphoresis ENMT: Denies: throat pain, ear or mastoid pain, nasal discharge or nasal congestion Card: Denies: chest pain, palpitations or syncope Resp: Denies: dyspnea GI: Denies: nausea or vomiting : Denies: flank pain, dysuria, urinary frequency or urinary urgency Skin/Breast: Denies: rash Neuro: Denies: headache(s) or confusion PFS ED PFSH: Medical History Diabetes Social History Smoking and tobacco status: never smoked Second hand smoke exposure: No Alcohol intake: former History of recent travel: No Physical Exam Const: COMMON NORMALS: no acute distress GENERAL APPEARANCE: cooperative and comfortable ORIENTATION/CONSCIOUSNESS: Yes awake, Yes oriented to person, Yes oriented to place and Yes oriented to time HENMT: COMMON NORMALS: normocephalic, atraumatic, hearing grossly normal bilaterally, external ears normal, EAC's normal, TM's normal bilaterally, Normal nasal mucous membranes and turbinates present, moist oral mucous membranes and oropharynx normal HEAD & SCALP: normocephalic and atraumatic NOSE: Normal nasal mucous membranes and turbinates present EXTERNAL EAR: Yes external ears normal EXTERNAL AUDITORY CANAL: EAC's normal TYMPANIC MEMBRANE: TM's normal bilaterally Eye: COMMON NORMALS: Equal, round and reactive pupils present, EOMs intact bilaterally, conjunctivae normal and no scleral icterus CONJUNCTIVA: Yes conjunctivae normal PUPIL: Yes Equal, round and reactive pupils present Neck/C-Spine: COMMON NORMALS: full ROM, no lymphadenopathy, supple and no JVD Lymph: LYMPHATIC: no lymphadenopathy noted and no lymphedema noted Resp: COMMON NORMALS: normal respiratory effort, No retractions, No use of accessory muscles and clear to auscultation bilaterally AUSCULTATION: clear to auscultation bilaterally Cardio: COMMON NORMALS: no JVD, regular rate, regular rhythm and No murmurs present (Cardio) RATE: regular rate RHYTHM: regular rhythm GI: COMMON NORMALS: Soft to palpation and No hepatosplenomegaly present AUSCULTATION: Yes normoactive bowel sounds PALPATION: Yes Soft to palpation, No Tenderness to palpation present (GI), No Guarding due to palpation present (GI) and Yes No hepatosplenomegaly present Extremity: COMMON NORMALS: normal to inspection, capillary refill normal and no calf tenderness GENERAL: Yes edema (Trace bilaterally) Neuro: SENSORIUM/ORIENTATION: Yes oriented to person, Yes oriented to place and Yes oriented to time Skin: COMMON NORMALS: no rashes or lesions noted GENERAL SKIN EXAM: no rashes or lesions noted Course Vital Signs: Vital signs: Vital Signs Temperature 98.0 F 03/07/21 09:28 Pulse Rate 63 03/07/21 11:40 Respiratory Rate 16 03/07/21 11:40 Blood Pressure 141/73 03/07/21 11:40 Pulse Oximetry 94 03/07/21 11:40 MDM - General Adult MDM Narrative: Medical decision making narrative: 4.6 L removed by paracentesis patient is feeling much better. He wishes to go home laboratory tests for the most part are stable given his known history. Encouraged him to follow-up with his corsage maker or primary care doctor within the week return to emergency room as further problems. Lab Data: Labs: Lab Results 03/07/21 03/07/21 03/07/21 Range/Units 09:55 09:57 09:57 WBC 5.3 (4.0-10.0) 10^3/ uL RBC 3.53 L (4.1-5.3) 10^6/u L Hgb 11.3 L (11.7-16.6) g/dL Hct 34.0 L (42.0-52.0) % MCV 96.3 H (80-94) fL MCH 32.0 (28.0-34.0) pg MCHC 33.2 (30.0-36.0) g/dL RDW 15.6 H (12.1-15.1) % Plt Count 136 (130-400) 10^3/c mm MPV 10.4 (7.4-10.4) fL Neut % (Auto) 76.4 % Lymph % (Auto) 9.8 % [place] % (Auto) 6.9 % Eos % (Auto) 5.4 % Baso % (Auto) 0.9 % Neut # (Auto) 4.07 (1.8-7.7) 10^3/u L Lymph # (Auto) 0.5 L (0.8-4.8) 10^3/u L [place] # (Auto) 0.4 (0.2-0.9) 10^3/u L Eos # (Auto) 0.3 (0.0-0.8) 10^3/u L Baso # (Auto) 0.1 (0.0-0.1) 10^3/u L Nucleated RBC % (a uto) 0 % Nucleated RBCs # 0.0 /100WBC PT (12.1-14.9) SECO NDS INR (0.8-1.2) APTT (23.9-36.7) SECO NDS Sodium Cancelled Potassium Cancelled Chloride Cancelled Carbon Dioxide Cancelled Anion Gap Cancelled BUN Cancelled Creatinine Cancelled GFR Calculation Cancelled Glucose Cancelled POC Glucose 211 H (70-110) mg/dL Calculated Osmolal ity Cancelled Lactate (0.5-2.2) mmol/L Calcium Cancelled Total Bilirubin Cancelled AST Cancelled ALT Cancelled Alkaline Phosphata se Cancelled Ammonia (16-60) umol/L Troponin T Baselin e (0-15) ng/L Troponin T 120 Min [place] (0-15) ng/L Delta Troponin T (0-10) ABS# Total Protein Cancelled Albumin Cancelled Globulin Cancelled Lipase Cancelled Urine Color (Yellow) Urine Appearance (CLEAR) Urine pH (5-7) Ur Specific Gravit y (1.005-1.030) Urine Protein (Negative) Urine Glucose (UA) (Normal) Urine Ketones (Negative) Urine Blood (Negative) Urine Nitrate (Negative) Urine Bilirubin (Negative) Urine Urobilinogen (Negative) mg/dL Ur Leukocyte Ashley ase (Negative) Acetaminophen Cancelled 03/07/21 03/07/21 03/07/21 Range/Units 09:57 09:57 09:57 WBC (4.0-10.0) 10^3/ uL RBC (4.1-5.3) 10^6/u L Hgb (11.7-16.6) g/dL Hct (42.0-52.0) % MCV (80-94) fL MCH (28.0-34.0) pg MCHC (30.0-36.0) g/dL RDW (12.1-15.1) % Plt Count (130-400) 10^3/c mm MPV (7.4-10.4) fL Neut % (Auto) % Lymph % (Auto) % [place] % (Auto) % Eos % (Auto) % Baso % (Auto) % Neut # (Auto) (1.8-7.7) 10^3/u L Lymph # (Auto) (0.8-4.8) 10^3/u L [place] # (Auto) (0.2-0.9) 10^3/u L Eos # (Auto) (0.0-0.8) 10^3/u L Baso # (Auto) (0.0-0.1) 10^3/u L Nucleated RBC % (a uto) % Nucleated RBCs # /100WBC PT 17.00 H (12.1-14.9) SECO NDS INR 1.34 H (0.8-1.2) APTT 34.7 (23.9-36.7) SECO NDS Sodium Potassium Chloride Carbon Dioxide Anion Gap BUN Creatinine GFR Calculation Glucose POC Glucose (70-110) mg/dL Calculated Osmolal ity Lactate 1.4 (0.5-2.2) mmol/L Calcium Total Bilirubin AST ALT Alkaline Phosphata se Ammonia 40 (16-60) umol/L Troponin T Baselin e (0-15) ng/L Troponin T 120 Min [place] (0-15) ng/L Delta Troponin T (0-10) ABS# Total Protein Albumin Globulin Lipase Urine Color (Yellow) Urine Appearance (CLEAR) Urine pH (5-7) Ur Specific Gravit y (1.005-1.030) Urine Protein (Negative) Urine Glucose (UA) (Normal) Urine Ketones (Negative) Urine Blood (Negative) Urine Nitrate (Negative) Urine Bilirubin (Negative) Urine Urobilinogen (Negative) mg/dL Ur Leukocyte Ashley ase (Negative) Acetaminophen 03/07/21 03/07/21 03/07/21 Range/Units 10:39 10:39 11:50 WBC (4.0-10.0) 10^3/ uL RBC (4.1-5.3) 10^6/u L Hgb (11.7-16.6) g/dL Hct (42.0-52.0) % MCV (80-94) fL MCH (28.0-34.0) pg MCHC (30.0-36.0) g/dL RDW (12.1-15.1) % Plt Count (130-400) 10^3/c mm MPV (7.4-10.4) fL Neut % (Auto) % Lymph % (Auto) % [place] % (Auto) % Eos % (Auto) % Baso % (Auto) % Neut # (Auto) (1.8-7.7) 10^3/u L Lymph # (Auto) (0.8-4.8) 10^3/u L [place] # (Auto) (0.2-0.9) 10^3/u L Eos # (Auto) (0.0-0.8) 10^3/u L Baso # (Auto) (0.0-0.1) 10^3/u L Nucleated RBC % (a uto) % Nucleated RBCs # /100WBC PT (12.1-14.9) SECO NDS INR (0.8-1.2) APTT (23.9-36.7) SECO NDS Sodium 138 Potassium 3.8 Chloride 106 Carbon Dioxide 28 Anion Gap 7.8 BUN 11 Creatinine 0.4 L GFR Calculation Not Reportable Glucose 218 H POC Glucose (70-110) mg/dL Calculated Osmolal ity 292 Lactate (0.5-2.2) mmol/L Calcium 7.7 L Total Bilirubin 1.4 H AST 26 ALT 14 Alkaline Phosphata se 91 Ammonia (16-60) umol/L Troponin T Baselin e 27 H (0-15) ng/L Troponin T 120 Min [place] (0-15) ng/L Delta Troponin T (0-10) ABS# Total Protein 5.4 L Albumin 2.9 L Globulin 2.5 Lipase 22 Urine Color Yellow (Yellow) Urine Appearance Clear (CLEAR) Urine pH 7 (5-7) Ur Specific Gravit y 1.010 (1.005-1.030) Urine Protein Neg (Negative) Urine Glucose (UA) 4+ H (Normal) Urine Ketones Negative (Negative) Urine Blood Neg (Negative) Urine Nitrate Negative (Negative) Urine Bilirubin Neg (Negative) Urine Urobilinogen Norm (Negative) mg/dL Ur Leukocyte Ashley ase Negative (Negative) Acetaminophen < 5.0 L 03/07/21 Range/Units 12:40 WBC (4.0-10.0) 10^3/ uL RBC (4.1-5.3) 10^6/u L Hgb (11.7-16.6) g/dL Hct (42.0-52.0) % MCV (80-94) fL MCH (28.0-34.0) pg MCHC (30.0-36.0) g/dL RDW (12.1-15.1) % Plt Count (130-400) 10^3/c mm MPV (7.4-10.4) fL Neut % (Auto) % Lymph % (Auto) % [place] % (Auto) % Eos % (Auto) % Baso % (Auto) % Neut # (Auto) (1.8-7.7) 10^3/u L Lymph # (Auto) (0.8-4.8) 10^3/u L [place] # (Auto) (0.2-0.9) 10^3/u L Eos # (Auto) (0.0-0.8) 10^3/u L Baso # (Auto) (0.0-0.1) 10^3/u L Nucleated RBC % (a uto) % Nucleated RBCs # /100WBC PT (12.1-14.9) SECO NDS INR (0.8-1.2) APTT (23.9-36.7) SECO NDS Sodium Potassium Chloride Carbon Dioxide Anion Gap BUN Creatinine GFR Calculation Glucose POC Glucose (70-110) mg/dL Calculated Osmolal ity Lactate (0.5-2.2) mmol/L Calcium Total Bilirubin AST ALT Alkaline Phosphata se Ammonia (16-60) umol/L Troponin T Baselin e (0-15) ng/L Troponin T 120 Min [place] 26.25 H (0-15) ng/L Delta Troponin T -0.75 L (0-10) ABS# Total Protein Albumin Globulin Lipase Urine Color (Yellow) Urine Appearance (CLEAR) Urine pH (5-7) Ur Specific Gravit y (1.005-1.030) Urine Protein (Negative) Urine Glucose (UA) (Normal) Urine Ketones (Negative) Urine Blood (Negative) Urine Nitrate (Negative) Urine Bilirubin (Negative) Urine Urobilinogen (Negative) mg/dL Ur Leukocyte Ashley ase (Negative) Acetaminophen Discharge Plan Discharge Patient Disposition: Home Clinical Impression: Cirrhosis, alcoholic, Abdominal ascites Condition: Stable Prescriptions: No Action hydrocodone-acetaminophen 5-325 mg tablet 1 tab PO Q4H PRN (Reason: Pain) RF: 0 [place] 10-325 mg Tablet 1 tab PO Q4H PRN (Reason: Pain) RF: 0 gabapentin 300 mg capsule 300 mg PO 5XD RF: 0 nadolol 40 mg tablet 20 mg PO DAILY@12 RF: 0 Discharge Orders: Discharge ED (Routine); Ordered 03/07/21 Ordered By: Georges Turpin Referrals: Jacome,FABIOLA Zamorano [Primary Care Provider] - Discharge Diet: Usual diet Discharge Activity: Resume usual activity Patient Instructions: Opioid Safety Coding Level of Care Code ED Information Systems Security Developer for Chg Vamsi
--- NOTE | 2021-03-07 09:55 | US_ITS ---
WS: [id number] ULTRASOUND-GUIDED THERAPEUTIC PARACENTESIS Procedure, risks, and complications have been explained to the patient. Consent is obtained. Utilizing aseptic technique and 1% buffered lidocaine, a small dermatome was made through which a 5 F rench Yueh catheter was inserted. Approximately 4600 ml of clear peritoneal fluid was obtained witho ut difficulty. No complications encountered. US/US paracentesis abd w [id number] IMPRESSION: Uncomplicated paracentesis yielding 4600 ml of peritoneal fluid.
--- NOTE | 2021-03-07 10:20 | PC.PHAR ---
PT STATES HE TAKES CARE OF HIS OWN MEDICATIONS-PT STATES HE IS ONLY TAKING NORCO,GABAPENTIN AND NADOLOL-PT BROUGHT IN MED BOTTLES WITH THOSE MEDICATIONS-PT BROUGHT IN NORCO 10/325MG FILLED ON 04/18/2012 AND NORCO 5-325MG FILLED ON 02/03/21-PT STATES HE USE TO TAKE JANUMET XR LEVOTHYROXINE KCL LASIX OLMESARTAN AND OTHER MEDICATIONS BUT STATES HE STOP TAKING THEM AND ONLY TAKES THE NORCO,GABAPENTIN AND NADOLOL
[2021-03-07 10:22] LABS: INR 1.34 (0.8-1.2)
[2021-03-07 10:23] LABS: Partial Thromboplastin Time 34.7 SECONDS (23.9-36.7)
[2021-03-07 10:28] LABS: Ammonia 40 umol/L (16-60); Lactate (Lactic Acid level) 1.4 mmol/L (0.5-2.2)
[2021-03-07 10:42] LABS: Basophils # 0.1 10^3/uL (0.0-0.1); Basophils % 0.9 %; Eosinophils # 0.3 10^3/uL (0.0-0.8); Eosinophils % 5.4 %; Hemoglobin 11.3 g/dL (11.7-16.6); Lymphocytes # 0.5 10^3/uL (0.8-4.8); Lymphocytes % 9.8 %; Mean Corpuscular HGB Conc 33.2 g/dL (30.0-36.0); Mean Corpuscular Volume 96.3 fL (80-94); Mean Platelet Volume 10.4 fL (7.4-10.4); Monocytes # 0.4 10^3/uL (0.2-0.9); Monocytes % 6.9 %; Neutrophils # 4.07 10^3/uL (1.8-7.7); Neutrophils % 76.4 %; Nucleated Red Blood Cells % 0 %; Platelet Count 136 10^3/cmm (130-400); Red Blood Count 3.53 10^6/uL (4.1-5.3); Red Cell Distribution Width 15.6 % (12.1-15.1); White Blood Count 5.3 10^3/uL (4.0-10.0)
--- NOTE | 2021-03-07 10:51 | ECG_ITS ---
[facility] Test Date: 2021-03-07 Pat Name: Johann Watson Department: Room: Gender: Male Bone Grinder: : 1945 Requested By: Georges Bolton Order Number: [id number] Reading MD: LAKISHA CORREA Measurements Intervals [place] Rate: 67 P: 32 AL: 182 QRS: -7 QRSD: 91 T: -7 QT: 431 QTc: 456 Interpretive Statements SINUS RHYTHM WITH OCCASIONAL VENTRICULAR PREMATURE COMPLEXES No previous ECG available for comparison Electronically Signed On 03-07-2021 18:40:09 CDT by LAKISHA CORREA [id number]
[2021-03-07 11:08] LABS: Acetaminophen < 5.0 ug/mL (10-30); Alanine Aminotransferase 14 U/L (0-41); Albumin Level 2.9 g/dL (3.5-5.2); Alkaline Phosphatase 91 IU/L (40-130); Anion Gap 7.8 (5-19); Aspartate Amino Transferase 26 U/L (0-40); Blood Urea Nitrogen 11 mg/dL (8-23); Calcium 7.7 mg/dL (8.5-10.5); Carbon Dioxide 28 mmol/L (22-29); Chloride 106 mmol/L (98-107); Globulin 2.5 g/dL (1.3-4.6); Glucose 218 mg/dL (65-115); Lipase 22 U/L (13-60); Osmolality Calculated 292 mOsm/kg (285-295); Potassium 3.8 mmol/L (3.5-5.1); Sodium 138 mmol/L (136-145); Total Bilirubin 1.4 mg/dL (0.15-1.2); Total Protein 5.4 g/dL (6.6-8.7)
--- NOTE | 2021-03-07 11:11 | ECG_ITS ---
[facility] Test Date: 2021-03-07 Pat Name: Johann Watson Department: Room: Gender: Male Bulk Folder: : 1945 Requested By: Georges Bolton Order Number: [id number] Reading MD: LAKISHA CORREA Measurements Intervals [place] Rate: 56 P: 37 CT: 167 QRS: -4 QRSD: 90 T: 0 QT: 447 QTc: 435 Interpretive Statements SINUS BRADYCARDIA Compared to ECG 03/07/2021 09:37:41 Sinus rhythm no longer present Ventricular premature complex(es) no longer present Electronically Signed On 03-07-2021 18:40:04 CDT by LAKISHA CORREA [id number]
[2021-03-07 11:40] VITALS: BP 141/73; PULSE 63; RESP 16; O2SAT 94
--- NOTE | 2021-03-07 11:41 | PC.NURSE ---
4600ml withdrawn from paracentesis.
[2021-03-07 11:55] LABS: Troponin(5th) Baseline 27 ng/L (0-15)
[2021-03-07 11:58] LABS: Add Urine Microscopic? NO; Charge for UA Resulting for Rev
[2021-03-07 12:02] LABS: Bilirubin Urine Neg (Negative); Blood Urine Neg (Negative); Glucose Urine UA 4+ (Normal); Ketones Urine Negative (Negative); Leukocyte Esterase Urine Negative (Negative); Nitrate Urine Negative (Negative); Protein Urine Neg (Negative); Urine Appearance Clear (CLEAR); Urine Color Yellow (Yellow); Urobilinogen Urine Norm (Negative); pH Urine 7 (5-7)
[2021-03-07 12:14] LABS: Glucose Point of Care 211 mg/dL (70-110)
[2021-03-07 13:15] LABS: Troponin 5 2HR 26.25 ng/L (0-15)
[2021-03-07 13:16] LABS: Troponin 5 2HR Delta -0.75 ABS# (0-10)
== END 2021-03-07 13:10 | disposition home or self-care (01) ==
PROVIDERS: Emergency Provider Family Medicine; PCP Nurse Practitioner Family
DX: K70.30 Alcoholic cirrhosis of liver without ascites (principal); R18.8 Other ascites; E11.9 Type 2 diabetes mellitus without complications; Z79.899 Other long term (current) drug therapy
CPT/HCPCS: 36415; 36416; 49083; 71045; 80053; 80307; 81003; 82140; 82962; 83605; 83690; 84484; 85025; 85610; 85730; 93005; 99284

== ENCOUNTER → 2021-07-20 12:47 | Outpatient (BNVA) | payer MEDICARE, SELFPAY | PROVIDERS: PCP Nurse Practitioner Family; Visit Provider Internal Medicine | DX: E11.65 Type 2 diabetes mellitus with hyperglycemia (principal); E11.40 Type 2 diabetes mellitus with diabetic neuropathy, unspecified; K74.60 Unspecified cirrhosis of liver; Z79.84 Long term (current) use of oral hypoglycemic drugs; Z79.4 Long term (current) use of insulin | CPT/HCPCS: 99204 ==

== ENCOUNTER → 2021-08-03 15:10 | Outpatient (BNVA) | payer MEDICARE, SELFPAY | PROVIDERS: PCP Internal Medicine; Visit Provider Internal Medicine | DX: K74.60 Unspecified cirrhosis of liver (principal); R18.8 Other ascites; I85.00 Esophageal varices without bleeding; U07.1 COVID-19; J12.89 Other viral pneumonia | CPT/HCPCS: 80053; 82140 ==

== ENCOUNTER → 2021-08-07 07:42 | Day surgery (SDC) | payer MEDICARE, SELFPAY ==
--- NOTE | 2021-08-07 07:56 | US_ITS ---
WS: [id number] Abdominal ultrasound, limited. History: Evaluate for ascites. Comparison: None. All 4 quadrants are imaged by ultrasound to evaluate for ascites. There is a large amount of ascites in all 4 quadrants of the abdomen. US/US abdomen limited [id number] IMPRESSION: Large amount of ascites.
[2021-08-07 08:00] VITALS: BP 167/99; PULSE 74; RESP 18; TEMP 36.5; O2SAT 98
[2021-08-07 09:13] VITALS: BP 162/89; PULSE 80; RESP 18; O2SAT 98
--- NOTE | 2021-08-07 09:29 | PM.ACPR ---
Acute Procedures Paracentesis: Time out performed: Yes Indication: Ascites Procedure: therapeutic paracentesis Location: LLQ Local anesthetic used: lidocaine 1% Amount of anesthesia used (ml): 10 Bedside ultrasound used: yes, Ascites confirmed and location marked Preparation: sterile prep and drape and 11 blade used to make yessica in skin Amount of fluid obtained (ml): 9,300 Fluid: clear Post procedure exam: awake, alert, normal BP, normal HR and normal SpO2 Patient tolerated procedure: well and no complications Complications: none
== END ==
PROVIDERS: PCP Internal Medicine; Visit Provider Internal Medicine
DX: R18.8 Other ascites (principal)
CPT/HCPCS: 76705

== ENCOUNTER → 2021-08-17 15:48 | Day surgery (SDC) | payer MEDICARE, SELFPAY ==
[2021-08-17 16:36] VITALS: BP 137/72; PULSE 66; RESP 18; TEMP 36.8; O2SAT 98; BMI 26.5
--- NOTE | 2021-09-06 12:39 | PM.ACPR ---
Acute Procedures Paracentesis: Time out performed: Yes Indication: Ascites Procedure: therapeutic paracentesis Location: LLQ Local anesthetic used: lidocaine 1% Amount of anesthesia used (ml): 10 Preparation: sterile prep and drape and 11 blade used to make yessica in skin Amount of fluid obtained (ml): 5,000 Fluid: clear Post procedure exam: awake, alert Patient tolerated procedure: well Complications: none
== END ==
PROVIDERS: PCP Internal Medicine; Visit Provider Internal Medicine
DX: R18.8 Other ascites (principal)
CPT/HCPCS: 49082

== ENCOUNTER 2021-08-24 09:02 | Inpatient (IN) | payer MEDICARE, SELFPAY ==
[2021-08-24] VITALS (8 sets, daily range): BP systolic 143–170; BP diastolic 68–94; PULSE 72–92; RESP 17–28; TEMP 36.9–37.1; O2SAT 92–99; BMI 24.3; BMI 23.4
--- NOTE | 2021-08-24 09:10 | XR_ITS ---
WS: [id number] Exam: XR chest 1V portable [id number] Date/Time of Exam: 08/24/2021 9:10 AM Reason For Exam: ams Comparison 03/07/2021. Mild infiltrate in the right lower lung zone. Remaining lung cedeño are clear. Cardiomediastinal stru ctures are unremarkable for technique. Old single bilateral lower rib fractures are noted. No pleural effusions. No pneumothorax. XR/XR chest 1V portable [id number] IMPRESSION: 1. Mild infiltrate in the right base. This may represent developing pneumonia.
--- NOTE | 2021-08-24 09:10 | CTR_ITS ---
PROCEDURE INFORMATION: Exam: CT Cervical Spine Without Contrast Exam date and time: 08/24/2021 9:10 AM Age: 76 years old Clinical indication: Injury or trauma; Fall; Weakness; Blunt trauma; Injury date: Today; Additional info: AMS TECHNIQUE: Imaging protocol: Computed tomography images of the cervical spine without contrast. Radiation optimization: All CT scans at this facility use at least one of these dose optimization techniques: automated exposure control; mA and/or kV adjustment per patient size (includes targeted exams where dose is matched to clinical indication); or iterative reconstruction. COMPARISON: CT head wo con* [id number] 08/24/2021 9:39 AM RADIATION DOSE METRICS: Total DLP (mGy-cm): 798.73 FINDINGS: Bones/joints: No acute fracture. Normal alignment. Discs/Spinal canal/Neural foramina: There is severe intervertebral disc space loss at C5/6. At C5/6, disc osteophyte complex and facet hypertrophy contribute to severe right and moderate to severe left neural foraminal narrowing.. Lungs: Lung apices are normal. Soft tissues: Unremarkable. CT/CT cervical spin wo con* [id number] IMPRESSION: No acute findings.
--- NOTE | 2021-08-24 09:10 | CTR_ITS ---
PROCEDURE INFORMATION: Exam: CT Head Without Contrast Exam date and time: 08/24/2021 9:10 AM Age: 76 years old Clinical indication: Injury or trauma; Fall; Blunt trauma (contusions or hematomas); Consciousness not specified; Altered mental status/memory loss; Injury date: Today; Additional info: AMS TECHNIQUE: Imaging protocol: Computed tomography of the head without contrast. Radiation optimization: All CT scans at this facility use at least one of these dose optimization techniques: automated exposure control; mA and/or kV adjustment per patient size (includes targeted exams where dose is matched to clinical indication); or iterative reconstruction. COMPARISON: CT head wo con* [id number] 08/19/2020 4:21 PM RADIATION DOSE METRICS: Total DLP (mGy-cm): 920.07 FINDINGS: Brain: There is no acute intracranial hemorrhage or mass effect. Mild diffuse volume loss is within the range of normal for patient age. There are small vessel ischemic changes within the periventricular and subcortical white matter, but the normal aranda/white matter delineation is maintained. Cerebral ventricles: No ventriculomegaly. Paranasal sinuses: There is right maxillary sinus mucosal thickening. Mastoid air cells: Visualized mastoid air cells are well aerated. Bones/joints: Unremarkable. No acute fracture. Soft tissues: Unremarkable. CT/CT head wo con* [id number] IMPRESSION: No acute hemorrhage or calvarial fracture.
--- NOTE | 2021-08-24 09:11 | ECG_ITS ---
[facility] Test Date: 2021-08-24 Pat Name: Johann Watson Department: Room: Gender: Male Beef Tagger: : 1945 Requested By: Bernabe Tenorio Order Number: [id number] Santiago MD: Amaury Mccoy M.D. Measurements Intervals [place] Rate: 80 P: 28 HI: 168 QRS: -18 QRSD: 90 T: -8 QT: 375 QTc: 435 Interpretive Statements SINUS RHYTHM Compared to ECG 03/07/2021 12:05:46 Sinus bradycardia no longer present Electronically Signed On 08-26-2021 7:41:30 GLOBAL CTO by Amaury Mccoy M.D. [email or web address].[email or web address]store/[id number]
--- NOTE | 2021-08-24 09:11 | W.ED.AMS ---
HPI - Altered Mental Status General: Chief Complaint: Altered Mental Status Stated Complaint: AMS/ FALL/ GENERALIZED WEAKNESS Time Seen by Provider: 08/24/21 09:05 History of Present Illness: HPI narrative: 76-year-old with history of ascites presents due to altered mental status. Family states that he has been more confused for the past 4 to 5 days. They stated today they found him staring off into the corner and he did not know exactly where he was. Patient denies any focal pain. Did have a fall a week ago but does not report any focal trauma or pain. Denies any focal numbness weakness or tingling. Denies chest pain shortness of breath abdominal pain or dysuria. Review of Systems Narrative: - CONSTITUTIONAL: Denies weight loss, fever and chills. - HEENT: Denies changes in vision and hearing. - RESPIRATORY: Denies SOB and cough. - CV: Denies palpitations and CP. - GI: Denies abdominal pain, nausea, vomiting and diarrhea. - : Denies dysuria and urinary frequency. - MSK: Denies myalgia and joint pain. - SKIN: Denies rash and pruritus. - NEUROLOGICAL: Denies headache, weakness, numbness and syncope. - PSYCHIATRIC: Denies suicidal ideation, increasing confusion PFSH ED PFSH: Medical History Diabetes Surgical History No pertinent past surgical history Family History Father Diabetes Mother Arthritis H/O heart artery stent Social History Smoking and tobacco status: never smoked Second hand smoke exposure: No Smoking risk assessment/counseling performed?: Yes Alcohol intake: former Desire information about alcohol rehabilitation?: No Counseling given: No Desire information about substance/drug rehabilitation?: No Counseling given: No Adopted: No Caregiver/support person: No Lives independently: Yes Household members: none Housing: House Marital status: Single Highest education level completed: Associate Degree: Academic Program service: No Current occupational status: retired History of recent travel: No Sexually active: No Current gender identity: Male Agree to transfusion: Yes Physical Exam Narrative: EXAM NARRATIVE: - GENERAL: Alert and oriented to self only.. No acute distress. Well-nourished. - EYES: EOMI. Anicteric. - HENT: Atraumatic, no C-spine tenderness. Moist mucous membranes. No scleral icterus. No cervical lymphadenopathy. - LUNGS: Clear to auscultation bilaterally. No accessory muscle use. Equal lung sounds bilaterally. No respiratory distress. - CARDIOVASCULAR: Regular rate and rhythm. No murmur. No JVD. - ABDOMEN: Soft, non-tender and non-distended. Negative CVA tenderness bilaterally, no rebound or guarding, negative Whitehead sign. No palpable masses. - EXTREMITIES: No edema. Non-tender. - SKIN: No rashes or lesions. Warm. - NEUROLOGIC: No meningismus or focal neurological deficits. CN II-XII grossly intact. Mild confusion but redirectable. - PSYCHIATRIC: Cooperative. Appropriate mood and affect. Course Vital Signs: Vital signs: Vital Signs Temperature 98.7 F 08/24/21 09:05 Pulse Rate 88 08/24/21 10:31 Respiratory Rate 23 H 08/24/21 10:31 Blood Pressure 155/68 08/24/21 10:31 Pulse Oximetry 99 08/24/21 10:31 MDM - Altered Mental Status MDM Narrative: Medical decision making narrative: 76-year-old male presents with altered mental status. Denies any focal pain. Nonfocal neurologic symptoms appeared confused. CT scan of the head and C-spine does not reveal any sign of acute abnormality. However x-ray is concerning for pneumonia. Azithromycin Rocephin started. He likely has metabolic encephalopathy secondary to this. LFTs are chronically elevated and ammonia level is also mildly elevated to 79. Discussed this finding with hospitalist. Remainder of lab work and imaging reviewed. Discussed with hospitalist and they agreed patient would benefit from admission. Patient admitted in stable condition. Further evaluation management per hospitalist team. Lab Data: Labs: Lab Results 08/24/21 08/24/21 08/24/21 09:50 09:50 09:50 WBC 3.9 10^3/uL L 10^ 3/uL (4.0-10.0) RBC 3.58 10^6/uL L 10 ^6/uL (4.1-5.3) Hgb 11.7 g/dL g/dL (11.7-16.6) Hct 33.7 % L % (42.0-52.0) MCV 94.1 fl H fl (80-94) MCH 32.7 pg pg (28.0-34.0) MCHC 34.7 g/dL g/dL (30.0-36.0) RDW 14.3 % % (12.1-15.1) Plt Count 175 10^3/cmm 10^3 /cmm (130-400) MPV 9.4 fL fL (7.4-10.4) Neut % (Auto) 70.1 % % Lymph % (Auto) 13.8 % % Sequoyah % (Auto) 8.4 % % Eos % (Auto) 6.4 % % Baso % (Auto) 1.0 % % Neut # (Auto) 2.75 10^3/uL 10^3 /uL (1.8-7.7) Lymph # (Auto) 0.5 10^3/uL L 10^ 3/uL (0.8-4.8) Sequoyah # (Auto) 0.3 10^3/uL 10^3/ uL (0.2-0.9) Eos # (Auto) 0.3 10^3/uL 10^3/ uL (0.0-0.8) Baso # (Auto) 0.0 10^3/uL 10^3/ uL (0.0-0.1) Nucleated RBC % (a uto) 0 % % Nucleated RBCs # 0.0 /100WBC /100W BC Sodium 136 mmol/L mmol/L (136-145) Potassium 4.2 mmol/L mmol/L (3.5-5.1) Chloride 104 mmol/L mmol/L (98-107) Carbon Dioxide 19 mmol/L L mmol/ L (22-29) Anion Gap 17.2 (5-19) BUN 14 mg/dL mg/dL (8-23) Creatinine 0.4 mg/dL L mg/dL (0.7-1.2) GFR Calculation Not Reportable Glucose 263 mg/dL H mg/dL (65-115) Calculated Osmolal ity 292 mOsm/kg mOsm/ kg (285-295) Lactate Calcium 7.9 mg/dL L mg/dL (8.5-10.5) Magnesium 1.7 mg/dL mg/dL (1.7-2.3) Total Bilirubin 1.5 mg/dL H mg/dL (0.15-1.2) AST 38 U/L U/L (0-40) ALT 20 U/L U/L (0-41) Alkaline Phosphata se 102 IU/L IU/L (40-130) Ammonia 79 umol/L H umol/ L (16-60) Troponin T Baselin e NT-Pro-B Natriuret Pep 307 pg/mL H pg/mL (0-125) Total Protein 5.8 g/dL L g/dL (6.6-8.7) Albumin 3.0 g/dL L g/dL (3.5-5.2) Globulin 2.8 g/dL g/dL (1.3-4.6) Lipase 35 U/L U/L (13-60) TSH 5.09 uIU/mL H uIU /mL (0.27-4.20) Free T4 1.14 ng/dL ng/dL (0.82-1.77) Urine Color Urine Appearance Urine pH Ur Specific Gravit y Urine Protein Urine Glucose (UA) Urine Ketones Urine Blood Urine Nitrate Urine Bilirubin Urine Urobilinogen Ur Leukocyte Ashley ase Urine RBC Urine WBC Ur Squamous Epith Cells Amorphous Sediment Urine Bacteria Acetaminophen < 5.0 ug/mL L ug/ mL (10-30) Ethyl Alcohol < 10 mg/dL mg/dL (0-10) SARS-CoV-2 Ag (Rap id) 08/24/21 08/24/21 08/24/21 09:50 09:50 10:16 WBC RBC Hgb Hct MCV MCH MCHC RDW Plt Count MPV Neut % (Auto) Lymph % (Auto) Sequoyah % (Auto) Eos % (Auto) Baso % (Auto) Neut # (Auto) Lymph # (Auto) Sequoyah # (Auto) Eos # (Auto) Baso # (Auto) Nucleated RBC % (a uto) Nucleated RBCs # Sodium Potassium Chloride Carbon Dioxide Anion Gap BUN Creatinine GFR Calculation Glucose Calculated Osmolal ity Lactate 2.1 mmol/L mmol/L (0.5-2.2) Calcium Magnesium Total Bilirubin AST ALT Alkaline Phosphata se Ammonia Troponin T Baselin e 22 ng/L H ng/L (0-15) NT-Pro-B Natriuret Pep Total Protein Albumin Globulin Lipase TSH Free T4 Urine Color Yellow (Yellow) Urine Appearance Clear (CLEAR) Urine pH 7 (5-7) Ur Specific Gravit y 1.010 (1.005-1.030) Urine Protein Neg (Negative) Urine Glucose (UA) 4+ H (Normal) Urine Ketones Negative (Negative) Urine Blood 2+ H (Negative) Urine Nitrate Negative (Negative) Urine Bilirubin Neg (Negative) Urine Urobilinogen Norm mg/dL mg/dL (Negative) Ur Leukocyte Ashley ase Negative (Negative) Urine RBC 5-10 /hpf H /hpf (0-2) Urine WBC 0-4 /hpf H /hpf (0-5) Ur Squamous Epith Cells 0-4 /hpf H /hpf (0-5) Amorphous Sediment Not Reportable Urine Bacteria Trace /hpf /hpf (NONE) Acetaminophen Ethyl Alcohol SARS-CoV-2 Ag (Rap id) 08/24/21 10:16 WBC RBC Hgb Hct MCV MCH MCHC RDW Plt Count MPV Neut % (Auto) Lymph % (Auto) Sequoyah % (Auto) Eos % (Auto) Baso % (Auto) Neut # (Auto) Lymph # (Auto) Sequoyah # (Auto) Eos # (Auto) Baso # (Auto) Nucleated RBC % (a uto) Nucleated RBCs # Sodium Potassium Chloride Carbon Dioxide Anion Gap BUN Creatinine GFR Calculation Glucose Calculated Osmolal ity Lactate Calcium Magnesium Total Bilirubin AST ALT Alkaline Phosphata se Ammonia Troponin T Baselin e NT-Pro-B Natriuret Pep Total Protein Albumin Globulin Lipase TSH Free T4 Urine Color Urine Appearance Urine pH Ur Specific Gravit y Urine Protein Urine Glucose (UA) Urine Ketones Urine Blood Urine Nitrate Urine Bilirubin Urine Urobilinogen Ur Leukocyte Ashley ase Urine RBC Urine WBC Ur Squamous Epith Cells Amorphous Sediment Urine Bacteria Acetaminophen Ethyl Alcohol SARS-CoV-2 Ag (Rap id) Negative (Negative) EKG Data^: EKG 1: Other EKG comments: Normal sinus rhythm, rate of 80, T wave inversion in aVF and V3, no sign of acute ischemia or other acute abnormality. Discharge Plan Discharge Prescriptions: No Action Xifaxan 200 mg tablet 400 mg PO TID Qty: 120 RF: 6 spironolactone [Aldactone] 100 mg tablet 100 mg PO DAILY Qty: 90 RF: 3 tamsulosin 0.4 mg capsule 0.4 mg PO DAILY RF: 0 milk thistle 175 mg tablet 175 mg PO DAILY RF: 0 lactulose 10 gram/15 mL solution 30 g PO DAILY Qty: 473 RF: 1 Levemir FlexTouch U-100 Insuln 100 unit/mL (3 mL) insulin pen 10 - 12 unit SUBCUT DAILY RF: 0 hydrocodone-acetaminophen 5-325 mg tablet 1 tab PO Q4H PRN (Reason: Pain) RF: 0 gabapentin 300 mg capsule 300 mg PO DAILY RF: 0 nadolol 40 mg tablet 40 mg PO DAILY@12 RF: 0 Coding Level of Care Code ED Asphalt Paving Foreman for Robbie Agustin
[2021-08-24] MEDS: OLANZapine 10 mg VIAL 5 MG IM (09:52)
[2021-08-24] MEDS: water for injection-sterile 10 ML 2.1 ML (09:53)
[2021-08-24 10:02] LABS: Eosinophils # 0.3 10^3/uL (0.0-0.8); Eosinophils % 6.4 %; Hematocrit 33.7 % (42.0-52.0); Hemoglobin 11.7 g/dL (11.7-16.6); Lymphocytes # 0.5 10^3/uL (0.8-4.8); Lymphocytes % 13.8 %; Mean Corpuscular HGB Conc 34.7 g/dL (30.0-36.0); Mean Corpuscular Hemoglobin 32.7 pg (28.0-34.0); Mean Corpuscular Volume 94.1 fl (80-94); Mean Platelet Volume 9.4 fL (7.4-10.4); Monocytes # 0.3 10^3/uL (0.2-0.9); Monocytes % 8.4 %; Neutrophils # 2.75 10^3/uL (1.8-7.7); Neutrophils % 70.1 %; Nucleated Red Blood Cells % 0 %; Platelet Count 175 10^3/cmm (130-400); Red Blood Count 3.58 10^6/uL (4.1-5.3); Red Cell Distribution Width 14.3 % (12.1-15.1); White Blood Count 3.9 10^3/uL (4.0-10.0)
[2021-08-24 10:20] LABS: Ammonia 79 umol/L (16-60)
[2021-08-24 10:24] LABS: Lactate (Lactic Acid level) 2.1 mmol/L (0.5-2.2)
--- NOTE | 2021-08-24 10:25 | PC.NURSE ---
pt placed on continuous spo2, nibp, and cm monitoring.
[2021-08-24] MEDS: cefTRIAXone 2,000 MG in sodium chloride 0.9% (plus) 50 ML 100 MG IV (10:28)
[2021-08-24 10:29] LABS: Troponin(5th) Baseline 22 ng/L (0-15)
[2021-08-24 10:33] LABS: Alanine Aminotransferase 20 U/L (0-41); Alkaline Phosphatase 102 IU/L (40-130); Anion Gap 17.2 (5-19); Aspartate Amino Transferase 38 U/L (0-40); Blood Urea Nitrogen 14 mg/dL (8-23); Calcium 7.9 mg/dL (8.5-10.5); Carbon Dioxide 19 mmol/L (22-29); Chloride 104 mmol/L (98-107); Free T4 Free Thyroxine 1.14 ng/dL (0.82-1.77); Globulin 2.8 g/dL (1.3-4.6); Glucose 263 mg/dL (65-115); Lipase 35 U/L (13-60); Magnesium 1.7 mg/dL (1.7-2.3); NT Pro B Type Natriuretic Pept 307 pg/mL (0-125); Osmolality Calculated 292 mOsm/kg (285-295); Potassium 4.2 mmol/L (3.5-5.1); Sodium 136 mmol/L (136-145); Thyroid Stimulating Hormone 5.09 uIU/mL (0.27-4.20); Total Bilirubin 1.5 mg/dL (0.15-1.2); Total Protein 5.8 g/dL (6.6-8.7)
[2021-08-24 10:38] LABS: Acetaminophen < 5.0 ug/mL (10-30); Alcohol Level < 10 mg/dL (0-10)
--- NOTE | 2021-08-24 10:40 | PC.PHAR ---
pts sister micahel verified pts medications-michael states the pt has a friend come over to his house and gives him levemir 10-12 units once a day rx filled on 07/31/21 140d/s for 10 units daily-pts sister states the pt has been taking nadolol 40mg daily rx filled on 08/19/21 30d/s for 20mg daily-pts sister states the pt has had both his covid shots and booster shot derian states they only gave the 2 shots in oct and november 2020-notes are made in the pharmacy comments
[2021-08-24 10:45] LABS: Protein Urine Neg (Negative); Urine Appearance Clear (CLEAR); Urine Color Yellow (Yellow); pH Urine 7 (5-7)
[2021-08-24 10:46] LABS: Add Urine Culture? No; Bacteria Urine TRACE /hpf; Bilirubin Urine Neg (Negative); Blood Urine 2+ (Negative); Glucose Urine UA 4+ (Normal); Ketones Urine Negative (Negative); Leukocyte Esterase Urine Negative (Negative); Nitrate Urine Negative (Negative); Squamous Epithelial Cell Urine 0-4 /hpf (0-5); Urobilinogen Urine Norm (Negative); WBC Urine 0-4 /hpf (0-5)
[2021-08-24] MEDS: azithromycin 500 MG in sodium chloride 0.9% 250 ML 250 MG IV (10:51)
[2021-08-24 11:00] LABS: SARS Covid-2 Antigen Negative (Negative)
--- NOTE | 2021-08-24 11:11 | ECG_ITS ---
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 Measurements Intervals Mayer Rate: 84 P: 28 NH: 171 QRS: -18 QRSD: 93 T: -8 QT: 380 QTc: 450 Interpretive Statements SINUS RHYTHM Compared to ECG 08/24/2021 09:10:12 No significant changes Electronically Signed On 08-26-2021 7:48:24 LEAD MANUFACTURING ENGINEER by Amaury Mccoy M.D. [email or web address] [id number]
[2021-08-24] MEDS: haloperidol inj 5 mg/mL INJ 1 mL IVP (11:21)
[2021-08-24 12:56] LABS: Troponin 5 2HR 25.18 ng/L (0-15); Troponin 5 2HR Delta 3.18 ABS# (0-10)
--- NOTE | 2021-08-24 13:09 | P.HP_ITS ---
Providers/Chief Complaint Primary Care Provider: Gary Deras MD Chief Complaint: AMS/ FALL/ GENERALIZED WEAKNESS History of Present Illness Johann Watson is a 76 year old male with past medical history of diabetes and advanced alcoholic cirrhosis with large ascites as evidenced from primary care notes presents to the hospital today for altered mental status. There is no other past medical history available on the chart. There is no family present bedside with the patient. It seems that he had a paracentesis done a month ago. He is on lactulose rifaximin, Levemir nadolol for esophageal varices. Patient presented today with encephalopathy and he was more confused as per ER. History obtained is from ER doctor. Review of systems unable to be obtained due to patient's mental status. Unable to obtain any history either since patient is altered. ED course: ED physician states that patient presented with altered mental status family did state that he was more confused for the past 4 to 5 days. They stated today they found him staring off into the corner and did not know exactly where he was. Patient denied any focal pain. He did have a fall a week ago but does not report any focal trauma or pain. Denies focal numbness weakness or tingling. Denies shortness of breath chest pain abdominal pain or dysuria. BP 155/68, respiratory 23, pulse rate 88, temperature 98.7, pulse ox 99%. CT scan of head and C-spine does not reveal any sign of acute abnormality. X-ray is concerning for pneumonia. Patient given one dose of Rocephin and azithromycin. Ammonia level 79 today. Hospitalist was called for admission. Review of Systems General: Reports: ROS unobtainable due to mental status Medications/Allergies Home Medications Medication Instructions Recorded Confirmed Last Taken Type gabapentin 300 mg PO DAILY 03/07/21 08/24/21 08/23/21 History hydrocodone-acetaminophen 1 tab PO Q4H PRN 03/07/21 08/24/21 08/06/21 History nadolol 40 mg PO DAILY@12 03/07/21 08/24/21 08/23/21 History milk thistle 175 mg tablet 175 mg PO DAILY tab 07/20/21 08/24/21 08/06/21 History tamsulosin 0.4 mg capsule 0.4 mg PO DAILY 07/20/21 08/24/21 08/23/21 History rifaximin 200 mg tablet 400 mg PO TID #120 tab 08/03/21 08/24/21 08/23/21 Rx spironolactone 100 mg tablet 100 mg PO DAILY #90 tab 08/03/21 08/24/21 08/23/21 Rx lactulose 10 gram/15 mL oral 30 g PO DAILY #473 ml 08/23/21 08/24/21 08/23/21 Rx solution insulin detemir U-100 [Levemir 10 - 12 unit SUBCUT DAILY 08/24/21 08/24/21 Unknown History FlexTouch U-100 Insuln] Allergies Allergy/AdvReac Type Severity Reaction Status Date / Time No Known Allergies Allergy Verified 08/24/21 10:39 PFSH Acute PFSH: Medical History Diabetes Surgical History No pertinent past surgical history Family History Father Diabetes Mother Arthritis H/O heart artery stent Social History Smoking and tobacco status: never smoked Second hand smoke exposure: No Smoking risk assessment/counseling performed?: Yes Alcohol intake: former Desire information about alcohol rehabilitation?: No Counseling given: No Desire information about substance/drug rehabilitation?: No Counseling given: No Adopted: No Caregiver/support person: No Lives independently: Yes Household members: none Housing: House Marital status: Single Highest education level completed: Associate Degree: Academic Program service: No Current occupational status: retired History of recent travel: No Sexually active: No Current gender identity: Male Agree to transfusion: Yes Vitals/I&O/Wt Last Vital Signs Temp 98.7 F 08/24/21 09:05 Pulse 88 08/24/21 10:31 Resp 23 H 08/24/21 10:31 BP 155/68 08/24/21 10:31 Pulse Ox 99 08/24/21 10:31 Weight last 48 hrs Weight 77.111 kg Physical Exam Narrative: EXAM NARRATIVE: General: Alert but not oriented, patient seen kit green in bed in position sleeping. He does not say that he is sleepy and to leave him alone. Does not provide any other history or any other information at this time. Patient laying in bed with a blanket over him, down is almost off. HEENT: Normocephalic, atraumatic, EOMI, breathing room air, moist mucous membranes Cardio: Regular rate rhythm, normal S1-S2, no murmurs rubs gallops, unable to assess JVD. Respiratory: Good bilateral air entry, no wheezes no rhonchi appreciated GI: Abdomen soft, distended abdomen, unable to appreciate fluid wave but scan shows large amount of ascites, nontender, bowel sounds present Extremities:no edema, no cyanosis Data : 08/24/21 09:50 08/24/21 09:50 Micro: Microbiology 08/24/21 10:16 Blood Culture - Preliminary Blood SPECIMEN COLLECTED 08/24/21 10:16 Blood Culture - Preliminary Blood SPECIMEN COLLECTED A&P Assessment and plan (1) Esophageal varices: Status: Acute (2) Ascites: Status: Acute (3) Diabetic neuropathy: Status: Acute (4) Diabetes type 2, uncontrolled: Status: Acute (5) Liver cirrhosis: Status: Acute (6) Right lower lobe pneumonia: Status: Acute Additional A&P Information #Altered mental status, hepatic encephalopathy #History of liver cirrhosis, #History of esophageal varices #Large volume ascites -Order paracentesis due to large volume ascites seen on scan today. We will send fluid for cytology rule out SBP ?Cover with ceftriaxone 2 g daily for SBP and pneumonia ?Unsure of patient's current liver cirrhosis status. Notes to mentioning his esophageal varices ?Continue nadolol, continue rifaximin, continue spironolactone. We will add Lasix for him ?Continue lactulose 30 g 3 times daily to titrate to 3 bowel movements a day - Ammonia was elevated at 79 today -Check blood cultures and urine cultures. #Hypertension ?Unsure if this is new or old. Blood pressure 170 over 90s in the hospital. I will add Lasix and watch patient. Continue spironolactone. Unsure if he took his medications today or yesterday. Will refrain from adding any more agents at this time. #Diabetes mellitus with diabetic neuropathy -Continue insulin sliding scale #Right lower lobe pneumonia ?Was given ceftriaxone azithromycin in ER - We will continue ceftriaxone and azithromycin -Chest x-ray shows right lower lobe infiltrate ?Check bacterial antigen ?DuoNeb every 4 hours as needed -Covid negative. We will attempt to call family to obtain more information #Full code DVT prophylaxis: Heparin Liver cirrhosis diet, 2 g sodium Attestations Medical Necessity Statement*: Greater than 48-hour stay Coding Level of Care Code Acute Anaesthetic Technician for Chg Fwd Diagnoses Esophageal varices I85.00 Ascites R18.8 Diabetic neuropathy E11.40 Diabetes type 2, uncontrolled E11.65 Liver cirrhosis K74.60 Right lower lobe pneumonia J18.9
--- NOTE | 2021-08-24 13:28 | PC.NURSE ---
while at bedside pt is resting quietly with eyes closed on left side. pt refuses to wear pulse ox informed dr. hollins no further orders.
--- NOTE | 2021-08-24 14:53 | PC.NURSE ---
complete bed change performed for incontinence of urine.
--- NOTE | 2021-08-24 17:14 | PC.NURSE ---
complete bed changed performed for incontinence of urine.
[2021-08-24 17:41] LABS: Troponin 5 6HR 26.48 ng/L (0-15); Troponin 5 6HR Delta 4.48 ng/L (0-12)
[2021-08-24] MEDS: heparin 5,000 unit/mL INJ 1 mL 5000 UNIT SUBCUT (17:50)
[2021-08-24 18:23] LABS: Vitamin B12 646 pg/mL (232-1245)
[2021-08-24 18:24] LABS: Folate Level 12.5 ng/mL (4.5-32.2)
--- NOTE | 2021-08-24 19:28 | PC.NURSE ---
complete bed change performed for incontinence of urine.
[2021-08-24 21:46] LABS: Glucose Point of Care 133 mg/dL (70-110)
[2021-08-24] MEDS: lactulose oral liq 20 gm/30 mL UDC PO (22:38)
[2021-08-25] VITALS: BP 142/72; PULSE 75; RESP 18; TEMP 36.7; O2SAT 93
[2021-08-25 06:36] LABS: Basophils # 0.1 10^3/uL (0.0-0.1); Basophils % 1.8 %; Eosinophils # 0.2 10^3/uL (0.0-0.8); Eosinophils % 6.3 %; Hematocrit 32.8 % (42.0-52.0); Hemoglobin 11.3 g/dL (11.7-16.6); Lymphocytes # 0.5 10^3/uL (0.8-4.8); Lymphocytes % 18.3 %; Mean Corpuscular HGB Conc 34.5 g/dL (30.0-36.0); Mean Corpuscular Volume 92.9 fl (80-94); Monocytes # 0.3 10^3/uL (0.2-0.9); Monocytes % 11.6 %; Neutrophils # 1.75 10^3/uL (1.8-7.7); Neutrophils % 61.6 %; Nucleated Red Blood Cells % 0 %; Platelet Count 152 10^3/cmm (130-400); Red Blood Count 3.53 10^6/uL (4.1-5.3); Red Cell Distribution Width 14.2 % (12.1-15.1); White Blood Count 2.8 10^3/uL (4.0-10.0)
[2021-08-25 06:55] LABS: INR 1.35 (0.8-1.2)
[2021-08-25 07:03] LABS: Alanine Aminotransferase 21 U/L (0-41); Albumin Level 2.8 g/dL (3.5-5.2); Alkaline Phosphatase 82 IU/L (40-130); Anion Gap 8.5 (5-19); Aspartate Amino Transferase 40 U/L (0-40); Blood Urea Nitrogen 8 mg/dL (8-23); Carbon Dioxide 25 mmol/L (22-29); Chloride 106 mmol/L (98-107); Globulin 3.1 g/dL (1.3-4.6); Glucose 122 mg/dL (65-115); Magnesium 1.5 mg/dL (1.7-2.3); Osmolality Calculated 282 mOsm/kg (285-295); Potassium 3.5 mmol/L (3.5-5.1); Sodium 136 mmol/L (136-145); Total Bilirubin 1.9 mg/dL (0.15-1.2); Total Protein 5.9 g/dL (6.6-8.7)
[2021-08-25 07:08] LABS: Glucose Point of Care 120 mg/dL (70-110)
[2021-08-25 07:58] VITALS: BP 140/72; PULSE 84; RESP 18; O2SAT 93
[2021-08-25] MEDS: gabapentin 300 mg Capsule PO (08:47)
[2021-08-25] MEDS: spironolactone 25 mg Tablet 100 MG PO (08:47)
[2021-08-25] MEDS: FUROsemide 40 mg Tablet PO (08:47)
[2021-08-25] MEDS: cefTRIAXone 2,000 MG in sodium chloride 0.9% (plus) 50 ML 100 MG IV (08:47)
[2021-08-25] MEDS: tamsulosin 0.4 mg Capsule PO (08:47)
[2021-08-25] MEDS: lactulose oral liq 20 gm/30 mL UDC PO ×3 (08:47→21:15)
[2021-08-25 08:58] LABS: LAB Peripheral Smear Sent for Review
[2021-08-25] MEDS: azithromycin 500 MG in sodium chloride 0.9% 250 ML 250 MG IV (10:47)
[2021-08-25 11:35] LABS: Glucose Point of Care 142 mg/dL (70-110)
[2021-08-25 11:48] VITALS: BP 145/72; PULSE 94; RESP 16; TEMP 36.8; O2SAT 94
--- NOTE | 2021-08-25 12:05 | CT_ITS ---
WS: [id number] CT ABDOMEN AND PELVIS WITH CONTRAST HISTORY: Cirrhosis and ascites TECHNIQUE: Imaging performed of the abdomen and pelvis with IV contrast. Single phase imaging of the abdomen. Coronal and sagittal reformats are submitted. All CT scans at [facility] use at [address] one of these dose optimization techniques: automated exposure control; mA and/or kV adjustment per patient size (includes targeted exams where dose is matched to clinical indication); or iterative re construction. IV CONTRAST: Omnipaque 300; 95 mL IV. Oral contrast: No DLP: 1738.17 mGy.cm COMPARISON: 05/13/2012 Lower thorax: Mild edema at the lung bases. No significant effusion. Mildly enlarged heart. Moderate size hiatal hernia. Paraesophageal varices are noted. Liver/biliary system: Shrunken liver with cirrhotic configuration. Portal vein is patent. Recanalized umbilical vein. Gallbladder: Normal. No gallstones or wall thickening. No pericholecystic fluid. Pancreas: Normal size pancreas and pancreatic duct. No adjacent inflammation. Spleen: Spleen is top normal size at 13.9 cm in length. Gastrosplenic varices. Adrenal glands: Normal. Right kidney: Normal. Left kidney: Normal. Aorta: Mild atherosclerosis with no aneurysm. Lymphadenopathy: None. Free fluid: Small amount of free fluid throughout the abdomen and pelvis. The largest appears centere d around the liver. Very small amount of free fluid in the pelvis. GI tract: No obstruction. Abdominal wall: Unremarkable abdominal wall. No hernia. Pelvis: Small amount of free fluid in the pelvis. Urinary bladder is moderately well distended. There is a small bladder diverticulum extending superior from the urinary bladder with associated calcific ation. This diverticulum was better visualized on the prior study when there was no ascites present. Bones: Bilateral remote healed rib fractures. CT/CT abdomen pelvis w con* [id number] IMPRESSION: 1. Moderate cirrhosis with recanalized umbilical vein. Additional paraesophage al and gastrosplenic varices. 2. Small amount of ascites. 3. Moderately distended urinary bladder with a bladder diverticulum reidentifi ed.
--- NOTE | 2021-08-25 13:28 | PM.PN ---
Subjective Subjective: Interval history: Seen this morning. Patient is confused and having to go to the bathroom again and again because he says he has to pee. No change in physical exam from yesterday evening when I saw him in the ER. He is awake alert but not oriented at this time. Sister was seen at bedside around the afternoon. She states that on Saturday patient was not talking properly. She says some words were not coming out. She basically was describing word finding difficulty. She says that patient continuously uses walker and tried to walk into a corner into the wall. He also kept walking towards the wall heater. He was not really mentally sound. Also in the last week he has had episodes of incontinence for urine. And before that he had diarrhea for several days this was before and Thanksgiving. He was taken to Dr. Deras who advised to not take any protein. The sister states that she bought a lot of vegetables and fruits for the patient. Patient ate 5 bananas peaches blackberries. But she noticed that he was unable to complete sentences and had word finding difficulty. She has also noticed that he has difficulty swallowing. She states today at bedside when patient was trying to eat milk came out of his nose and he was unable to swallow. Patient did have thoracentesis done on August 17 recently. As far as she is aware patient has liver cirrhosis, was an alcoholic but does not drink anymore. And also has esophageal varices. Other than this she is not aware of any other medical conditions. And patient also has diabetes. Patient does live alone but does have someone come to the house to clean. Vitals/I&O/Wt Last Vital Signs Temp 98.2 F 08/25/21 16:00 Pulse 96 08/25/21 16:00 Resp 18 08/25/21 16:00 BP 147/70 08/25/21 16:00 Pulse Ox 95 08/25/21 16:00 08/25/21 08/25/21 08/25/21 06:59 14:59 22:59 Intake Total 0 / 310 300 / 300 Balance 0 / 310 300 / 300 Weight last 48 hrs Weight 74.077 kg Weight 77.111 kg Physical Exam Narrative: EXAM NARRATIVE: General: Alert but not oriented, patient seen sitting up in bed stating that he wants to go to the bathroom. He is trying to get out of bed as I see him. He is able to walk with his walker. Unable to really give me much of a history but able to tell me that he is not having any pain anywhere and feels okay. Patient is confused. HEENT: Normocephalic, atraumatic, EOMI, breathing room air, moist mucous membranes Cardio: Regular rate rhythm, normal S1-S2, no murmurs rubs gallops, Respiratory: Good bilateral air entry, no wheezes no rhonchi appreciated GI: Abdomen soft, mildly distended abdomen, nontender bowel sounds present. Extremities:no edema, no cyanosis Neuro: Able to move all 4 extremities, unsure if he has any word finding difficulty at this time but the sister describes that he does. He is confused and unable to have a proper conversation. Urinary Catheter Management^: Valera: Cath Placed During This Visit: yes Reason for Continuing Indwelling Catheter: Acute Urinary Retention or Obstruction Urinary Catheter Date of Insertion: 08/25/21 Urinary Catheter Time of Insertion: 16:50 Data : 08/25/21 05:38 08/25/21 05:38 Micro: Microbiology 08/24/21 10:16 Blood Culture - Preliminary Blood NEGATIVE TO DATE 08/24/21 10:16 Blood Culture - Preliminary Blood NEGATIVE TO DATE A&P Assessment and plan (1) Esophageal varices: Status: Acute (2) Ascites: Status: Acute (3) Diabetic neuropathy: Status: Acute (4) Diabetes type 2, uncontrolled: Status: Acute (5) Liver cirrhosis: Status: Acute (6) Right lower lobe pneumonia: Status: Acute Additional A&P Information #Altered mental status, hepatic encephalopathy #History of liver cirrhosis, #History of esophageal varices #Large volume ascites #Dysphagia #Word finding difficulty as reported by sister, rule out stroke -Paracentesis was ordered but there is not much fluid to tap as per ultrasound assessment. Therefore have canceled the order. ?Cover with ceftriaxone 2 g daily for SBP and pneumonia ?Patient does have esophageal varices. He sees Dr. Deras as his primary care physician. ?Continue nadolol, continue rifaximin, continue spironolactone. Continue Lasix. ?Continue lactulose 30 g 3 times daily to titrate to 3 bowel movements a day - Ammonia was elevated at 79 on admission -Check blood cultures and urine cultures. -We will check MRI brain to rule out a stroke. Patient is also experiencing dysphagia. He has been seen by speech and swallow will recommend to keep the patient n.p.o. Patient is having aspirations. #Hypertension ?Unsure if this is new or old. Blood pressure 170 over 90s in the hospital at admission. Continue Lasix spironolactone. #Diabetes mellitus with diabetic neuropathy -Continue insulin sliding scale #Right lower lobe pneumonia ?Was given ceftriaxone azithromycin in ER - We will continue ceftriaxone and azithromycin -Chest x-ray shows right lower lobe infiltrate ?Check bacterial antigen ?DuoNeb every 4 hours as needed -Covid negative. I was able to obtain information from the sister at bedside today. She was updated with the plan extensively. #Full code DVT prophylaxis: Heparin Liver cirrhosis diet, 2 g sodium Attestations Medical Necessity Statement*: > 48-hour stay. Coding Level of Care Code Acute Hand Spinner for [place] [employer] Diagnoses Esophageal varices I85.00 Ascites R18.8 Diabetic neuropathy E11.40 Diabetes type 2, uncontrolled E11.65 Liver cirrhosis K74.60 Right lower lobe pneumonia J18.9
--- NOTE | 2021-08-25 14:05 | PC.CHAP ---
Pastoral Care Encounter/Spiritual Assessment Type of Contact [xx] Declined bus inspector visit [] Patient/Family/Request visit [] Outpatient visit [] Follow-up visit [] Physician referral [] Code/Alert [] Routine visit [] Staff referral [] Actively dying [] Patient sleeping [] Family support [] [] Out of room [] Palliative care [] [] Receiving care in room [] Pre-surgical visit [] Trauma [] Long length of stay [] ICU visit [] Other: Relational/Emotional Strength [] Patient feels connected with others/family/visitors/staff [] Distress [] Loneliness/isolation [] Abandonment Spirituality of Patient [] Person of Joanne [] Attends Faith of their Joanne [] Believes in Prayer [] Reads Bible or Confucianist materials [] There are Spiritual issues to be addressed Screen Making Technician Interventions [] Prayer [] Active listening [] Non-anxious presence [] Spiritual/emotional support [] Crisis/trauma care [] Spiritual counseling [] Bereavement support [] Provided bereavement packet [] Provided Bible/devotional materials [] Provided toy/stuffed animal, coloring book to patient or family member [] Provided Communion [] Anointing/[place] [] Salvation [] Completed spiritual assessment [] Other: Impact on Illness or Injury [] Angry [] Fearful [] Anxious [] Often cries [] Exhaustion [] Unable to work [] Unable to attend adventist [] Unable to walk/stand [] Unable to read [] Unable to drive [] Unable to eat/drink [] Unable to sleep [] Unable to be with family [] Patient intubated [] Other: Summary Patient declined visit with a female bus inspector. Time spent with patient 1 minute
[2021-08-25] MEDS: iohexol 300 mg/mL 100 mL Btl IV (14:56)
--- NOTE | 2021-08-25 15:22 | FL_ITS ---
WS: [id number] MODIFIED BARIUM SWALLOW HISTORY: Oral dysphagia FLUOROSCOPY TIME: 2.4 minutes. Modified barium swallow was performed by the speech pathologist. Fluoroscopy was provided with the pa tient in a lateral projection. Multiple food consistencies were provided. Difficulty with forming the food bolus and initiating swallowing with all food consistencies. There i s significant vallecular pooling of contrast. Several episodes of very deep laryngeal penetration wer e noted during swallowing. No aspiration or spontaneous cough. Patient is at high risk for aspiration . FL/FL barium swallow modifd [id number] IMPRESSION: Moderate swallowing deficits resulting in increased risk for aspiration. Patien t was unable to clear the liquid and food products from the vallecula easily. Please see speech therapist report also for recommendations.
--- NOTE | 2021-08-25 15:23 | PC.NURSE ---
patient made NPO per Dr. Liu and ordered modified barium swallow study per Dr. Liu
[2021-08-25 16:00] VITALS: BP 147/70; PULSE 96; RESP 18; TEMP 36.8; O2SAT 95
[2021-08-25 17:16] LABS: Glucose Point of Care 239 mg/dL (70-110)
--- NOTE | 2021-08-25 17:27 | PC.NURSE ---
patient taken to MRI via stretcher.
--- NOTE | 2021-08-25 17:30 | MRR_ITS ---
PROCEDURE INFORMATION: Exam: MR Head Without Contrast Exam date and time: 08/25/2021 5:30 PM Age: 76 years old Clinical indication: Altered mental status/memory loss; Additional info: Rule out stroke, word finding difficulty TECHNIQUE: Imaging protocol: MR of the head without contrast. COMPARISON: CT head wo con* [id number] 08/24/2021 9:39 AM FINDINGS: Brain: No acute infarct. Moderate diffuse cerebral atrophy. No hemorrhage. FLAIR T2 hyperintense signal abnormality within the periventricular, subcortical, and deep white matter tracts most suggestive of chronic small vessel ischemic disease. No edema. Cerebral ventricles: Normal. No ventriculomegaly. Bones/joints: Unremarkable. Paranasal sinuses: Mucosal thickening of the right maxillary sinus with trace fluid level. The rest of the paranasal sinuses are well pneumatized. Mastoid air cells: Trace left mastoid effusion. Orbital cavity: Unremarkable. Soft tissues: Unremarkable. MR/MR head wo con* [id number] IMPRESSION: 1. No acute ischemia. 2. Moderate diffuse cerebral atrophy and sequela of chronic small vessel ischemic disease.
--- NOTE | 2021-08-25 17:45 | US_ITS ---
NOTE: Report was unsigned for reason: Order was edited. Original Signature date and time was: 08/25/21 @ 0940 WS: [id number] Abdominal ultrasound, limited. History: Evaluate for ascites. Comparison: None. All 4 quadrants are imaged by ultrasound to evaluate for ascites. There is a very small amount of fluid within the peritoneal cavity. The pockets of fluid that are apparent have mobile peristalsing loops of bowel. [facility]US paracentesis abd w [id number] IMPRESSION: Inadequate ascites to perform paracentesis.
--- NOTE | 2021-08-25 18:24 | PC.NURSE ---
back from MRI, repositioned in bed, bed alarm activated.
[2021-08-25] MEDS: heparin 5,000 unit/mL INJ 1 mL 5000 UNIT SUBCUT (18:51)
[2021-08-25 19:55] LABS: Glucose Point of Care 189 mg/dL (70-110)
[2021-08-25 19:55] LABS: Glucose Point of Care 186 mg/dL (70-110)
[2021-08-25 20:00] VITALS: BP 165/74; PULSE 78; RESP 21; TEMP 36.7; O2SAT 99
[2021-08-25 23:44] VITALS: BP 172/87; PULSE 77; RESP 18; TEMP 36.2; O2SAT 98
--- NOTE | 2021-08-25 23:46 | PC.NURSE ---
Addendum entered by Lianna Dunn RN 08/26/21 05:02: Patient with generalized weakness, equal strengths bilaterally in upper and lower extremities. Patient oriented to self only, at times patient unable to find his words and asked for his table and fart, when this nurse clarified his request, he laughed and replied no. He's also not able to follow commands very well, when asked to smile, he would only reply ok without a smiling. Original Note: Shift Note Frequent safety and comfort rounds continue. Orders and/or nursing care completed as indicated. Patient monitored for response to intervention and treatment(s). Education provided includes fall precautions, veras with veras care, medications with side effects. Patient unable to comprehend education due to confusion. Patient extremely agitated at shift change, pulling at veras, trying to get out of bed, pushing staff while attempting to get out of bed. Neighboring patient in same room complaining this patient was causing him anxiety and unable to rest, charge nurse notified. Patient did calm and quiet with intermittent agitation so neighboring patient was able to get some rest. Patient incontinent of stools. Stools soft and brown. Will continue to monitor.
[2021-08-26 04:00] VITALS: BP 160/90; PULSE 73; RESP 17; TEMP 36.6; O2SAT 98
[2021-08-26] MEDS: heparin 5,000 unit/mL INJ 1 mL 5000 UNIT SUBCUT ×2 (05:50→17:03)
[2021-08-26 06:18] LABS: Basophils % 0.9 %; Eosinophils # 0.3 10^3/uL (0.0-0.8); Hematocrit 33.7 % (42.0-52.0); Hemoglobin 12.1 g/dL (11.7-16.6); Lymphocytes # 0.6 10^3/uL (0.8-4.8); Lymphocytes % 13.2 %; Mean Corpuscular HGB Conc 35.9 g/dL (30.0-36.0); Mean Corpuscular Hemoglobin 33.5 pg (28.0-34.0); Mean Corpuscular Volume 93.4 fl (80-94); Mean Platelet Volume 11.7 fL (7.4-10.4); Monocytes # 0.4 10^3/uL (0.2-0.9); Monocytes % 9.5 %; Neutrophils # 3.01 10^3/uL (1.8-7.7); Neutrophils % 69.9 %; Nucleated Red Blood Cells % 0 %; Platelet Count 109 10^3/cmm (130-400); Red Blood Count 3.61 10^6/uL (4.1-5.3); Red Cell Distribution Width 14.1 % (12.1-15.1); White Blood Count 4.3 10^3/uL (4.0-10.0)
[2021-08-26 06:36] LABS: Blood Urea Nitrogen 9 mg/dL (8-23); Calcium 8.1 mg/dL (8.5-10.5); Carbon Dioxide 24 mmol/L (22-29); Chloride 102 mmol/L (98-107); Glucose 112 mg/dL (65-115); Magnesium 1.5 mg/dL (1.7-2.3); Osmolality Calculated 277 mOsm/kg (285-295); Phosphorus 3.1 mg/dL (2.5-4.5); Sodium 134 mmol/L (136-145)
[2021-08-26 06:40] LABS: Anion Gap 11.7 (5-19); Potassium 3.7 mmol/L (3.5-5.1)
[2021-08-26 07:34] VITALS: BP 151/76; PULSE 86; RESP 16; TEMP 36.7; O2SAT 97
--- NOTE | 2021-08-26 10:07 | PC.NURSE ---
Family called at this time via telephone and requested update. Voiced understanding and thanks for update at this time.
[2021-08-26] MEDS: azithromycin 500 MG in sodium chloride 0.9% 250 ML 250 MG IV (10:14)
[2021-08-26 11:53] VITALS: BP 160/76; PULSE 80; RESP 16; TEMP 36.8; O2SAT 96
[2021-08-26] MEDS: lactulose oral liq 20 gm/30 mL UDC PO ×2 (12:44→21:24)
[2021-08-26 15:10] VITALS: BP 152/77; PULSE 79; RESP 16; TEMP 36.8; O2SAT 97
--- NOTE | 2021-08-26 18:23 | PM.PN ---
Subjective Subjective: Interval history: Seen this morning. Patient appears less confused today and knows that he is in the hospital. He is unable to tell me what year it is however but does know who the president is. He states he does feel better compared to prior. He was also able to swallow for me today. Does not offer any complaints or concerns. He does have a sitter at bedside. Vitals/I&O/Wt Last Vital Signs Temp 98.3 F 08/26/21 15:10 Pulse 79 08/26/21 15:10 Resp 16 08/26/21 15:10 BP 152/77 08/26/21 15:10 Pulse Ox 97 08/26/21 15:10 08/26/21 08/26/21 08/26/21 06:59 14:59 22:59 Intake Total 250 / 250 480 / 730 Output Total 300 / 850 300 / 300 Balance -300 / -550 -50 / -50 480 / 430 Weight last 48 hrs Weight 74.077 kg Physical Exam Narrative: EXAM NARRATIVE: General: Alert and oriented x2., Patient laying in bed appearing comfortable. Able to swallow as well. HEENT: Normocephalic, atraumatic, EOMI, breathing room air, moist mucous membranes Cardio: Regular rate rhythm, normal S1-S2, no murmurs rubs gallops, Respiratory: Good bilateral air entry, no wheezes no rhonchi appreciated. Refused to sit up for me. GI: Abdomen soft, nondistended abdomen, nontender bowel sounds present. Extremities:no edema, no cyanosis Neuro: Able to move all 4 extremities, I do not believe patient had any word finding difficulty today he was able to talk to me. Urinary Catheter Management^: Valera: Cath Placed During This Visit: yes Reason for Continuing Indwelling Catheter: Accurate Measurement of Urinary Output in Critically Ill Patients Urinary Catheter Date of Insertion: 08/25/21 Urinary Catheter Time of Insertion: 16:50 Data : 08/26/21 05:54 08/26/21 05:58 A&P Assessment and plan (1) Esophageal varices: Status: Acute (2) Ascites: Status: Acute (3) Diabetic neuropathy: Status: Acute (4) Diabetes type 2, uncontrolled: Status: Acute (5) Liver cirrhosis: Status: Acute (6) Right lower lobe pneumonia: Status: Acute Additional A&P Information #Altered mental status, hepatic encephalopathy #History of liver cirrhosis, #History of esophageal varices #Large volume ascites #Dysphagia #Word finding difficulty as reported by sister, rule out stroke -Paracentesis was ordered but there is not much fluid to tap as per ultrasound assessment. Therefore have canceled the order. ?Cover with ceftriaxone 2 g daily for SBP and pneumonia ?Patient does have esophageal varices. He sees Dr. Deras as his primary care physician. ?Continue nadolol, continue rifaximin, continue spironolactone. Continue Lasix. ?Continue lactulose 30 g 3 times daily to titrate to 3 bowel movements a day - Ammonia was elevated at 79 on admission -Check blood cultures and urine cultures. Results are pending. -MRI does not show any evidence of stroke. I will have speech pathology reevaluate the patient today. Since patient is able to swallow at bedside possibly he can be started on a pur?ed diet but I will await further recommendations. RN updated. #Hypertension ?Unsure if this is new or old. Blood pressure 170 over 90s in the hospital at admission. Continue Lasix spironolactone. #Diabetes mellitus with diabetic neuropathy -Continue insulin sliding scale #Right lower lobe pneumonia ?Was given ceftriaxone azithromycin in ER - We will continue ceftriaxone and azithromycin -Chest x-ray shows right lower lobe infiltrate ?Check bacterial antigen ?DuoNeb every 4 hours as needed -Covid negative. History was updated yesterday with the plan. Unable to call her today we will attempt to call her tomorrow. #Full code DVT prophylaxis: Heparin Liver cirrhosis diet, 2 g sodium We will add physical therapy occupational therapy consult for the patient. Attestations Medical Necessity Statement*: Greater than 48-hour stay. Coding Level of Care Code Acute Senior Benefits Specialist for g Fwd Diagnoses Esophageal varices I85.00 Ascites R18.8 Diabetic neuropathy E11.40 Diabetes type 2, uncontrolled E11.65 Liver cirrhosis K74.60 Right lower lobe pneumonia J18.9
[2021-08-26 20:00] VITALS: BP 124/72; PULSE 82; RESP 16; TEMP 36.6; O2SAT 97
[2021-08-26 23:08] LABS: Glucose Point of Care 173 mg/dL (70-110)
[2021-08-27] VITALS: BP 152/70; PULSE 74; RESP 18; TEMP 36.4; O2SAT 96
[2021-08-27 04:00] VITALS: BP 138/77; PULSE 84; RESP 16; TEMP 36.3; O2SAT 97
[2021-08-27 05:31] LABS: Basophils % 1.1 %; Eosinophils # 0.2 10^3/uL (0.0-0.8); Eosinophils % 6.6 %; Hematocrit 29.8 % (42.0-52.0); Hemoglobin 10.6 g/dL (11.7-16.6); Lymphocytes # 0.5 10^3/uL (0.8-4.8); Lymphocytes % 14.8 %; Mean Corpuscular HGB Conc 35.6 g/dL (30.0-36.0); Mean Corpuscular Hemoglobin 32.9 pg (28.0-34.0); Mean Corpuscular Volume 92.5 fl (80-94); Mean Platelet Volume 9.8 fL (7.4-10.4); Monocytes # 0.4 10^3/uL (0.2-0.9); Monocytes % 9.9 %; Neutrophils # 2.44 10^3/uL (1.8-7.7); Neutrophils % 67.1 %; Nucleated Red Blood Cells % 0 %; Platelet Count 129 10^3/cmm (130-400); Red Blood Count 3.22 10^6/uL (4.1-5.3); Red Cell Distribution Width 13.8 % (12.1-15.1); White Blood Count 3.6 10^3/uL (4.0-10.0)
[2021-08-27 05:52] LABS: Ammonia 34 umol/L (16-60); Anion Gap 13.5 (5-19); Blood Urea Nitrogen 12 mg/dL (8-23); Calcium 7.8 mg/dL (8.5-10.5); Carbon Dioxide 21 mmol/L (22-29); Chloride 105 mmol/L (98-107); Glucose 142 mg/dL (65-115); Magnesium 1.5 mg/dL (1.7-2.3); Osmolality Calculated 284 mOsm/kg (285-295); Potassium 3.5 mmol/L (3.5-5.1); Sodium 136 mmol/L (136-145)
[2021-08-27 06:19] LABS: Glucose Point of Care 124 mg/dL (70-110)
[2021-08-27] MEDS: heparin 5,000 unit/mL INJ 1 mL 5000 UNIT SUBCUT ×2 (06:45→17:02)
[2021-08-27 08:00] VITALS: BP 139/74; PULSE 84; RESP 16; TEMP 36.7; O2SAT 98
[2021-08-27] MEDS: cefTRIAXone 2,000 MG in sodium chloride 0.9% (plus) 50 ML 100 MG IV (08:26)
[2021-08-27] MEDS: FUROsemide 40 mg Tablet PO (08:27)
[2021-08-27] MEDS: gabapentin 300 mg Capsule PO (08:27)
[2021-08-27] MEDS: spironolactone 25 mg Tablet 100 MG PO (08:27)
[2021-08-27] MEDS: lactulose oral liq 20 gm/30 mL UDC PO ×3 (08:27→20:24)
[2021-08-27] MEDS: tamsulosin 0.4 mg Capsule PO (08:27)
[2021-08-27] MEDS: azithromycin 500 MG in sodium chloride 0.9% 250 ML 250 MG IV (10:32)
--- NOTE | 2021-08-27 10:41 | PC.SOCIAL ---
IMM UPDATED IMM dated and initialed and copy given to patient
[2021-08-27 11:36] VITALS: BP 131/75; PULSE 81; RESP 16; TEMP 36.4; O2SAT 92
--- NOTE | 2021-08-27 15:30 | P.PN_ITS ---
Subjective Subjective: Interval history: Patient has significant patient has significantly improved patient also states he is doing but believes he is in [place]. He does not know the year and thinks it is 1984. However knows the president is [place]. Does not offer any complaints denies chest pain, abdominal pain, shortness of breath, back pain. He was seen by speech therapy and was put on a pur?ed diet which has now been advanced to ground meat. MRI brain negative for stroke. Vitals/I&O/Wt Last Vital Signs Temp 97.6 F 08/27/21 11:36 Pulse 81 08/27/21 11:36 Resp 16 08/27/21 11:36 BP 131/75 08/27/21 11:36 Pulse Ox 92 08/27/21 11:36 08/27/21 08/27/21 08/27/21 06:59 14:59 22:59 Intake Total 780 / 780 Output Total 400 / 1100 Balance -400 / -250 780 / 780 Physical Exam Narrative: EXAM NARRATIVE: General: Alert and oriented x2., Patient laying in bed appearing comfortable. Able to swallow as well. HEENT: Normocephalic, atraumatic, EOMI, breathing room air, moist mucous membranes Cardio: Regular rate rhythm, normal S1-S2, no murmurs rubs gallops, Respiratory: Good bilateral air entry, no wheezes no rhonchi appreciated. GI: Abdomen soft, nondistended abdomen, nontender bowel sounds present. Extremities:no edema, no cyanosis Neuro: Able to move all 4 extremities, Urinary Catheter Management^: Valera: Cath Placed During This Visit: yes Reason for Continuing Indwelling Catheter: Accurate Measurement of Urinary Output in Critically Ill Patients Urinary Catheter Date of Insertion: 08/25/21 Urinary Catheter Time of Insertion: 16:50 Data : 08/27/21 05:15 08/27/21 05:15 A&P Assessment and plan (1) Esophageal varices: Status: Acute (2) Ascites: Status: Acute (3) Diabetic neuropathy: Status: Acute (4) Diabetes type 2, uncontrolled: Status: Acute (5) Liver cirrhosis: Status: Acute (6) Right lower lobe pneumonia: Status: Acute Additional A&P Information #Altered mental status, hepatic encephalopathy - improving #History of liver cirrhosis, #History of esophageal varices #Large volume ascites #Dysphagia #Word finding difficulty as reported by sister, rule out stroke -Paracentesis was ordered but there is not much fluid to tap as per ultrasound assessment. Therefore have canceled the order. ?Cover with ceftriaxone 2 g daily for SBP and pneumonia ?Patient does have esophageal varices. He sees Dr. Deras as his primary care physician. ?Continue nadolol, continue rifaximin, continue spironolactone. Continue Lasix. ?Continue lactulose 30 g 3 times daily to titrate to 3 bowel movements a day - Ammonia was elevated at 79 on admission -Check blood cultures and urine cultures. Results are pending. -MRI does not show any evidence of stroke. Patient able to swallow now. On ground meat dysphagia diet. #Hypertension ?Unsure if this is new or old. Blood pressure 170 over 90s in the hospital at admission. Continue Lasix spironolactone. #Diabetes mellitus with diabetic neuropathy -Continue insulin sliding scale #Right lower lobe pneumonia ?Was given ceftriaxone azithromycin in ER - We will continue ceftriaxone and azithromycin -Chest x-ray shows right lower lobe infiltrate ?Check bacterial antigen ?DuoNeb every 4 hours as needed -Covid negative. History was updated yesterday with the plan. Unable to call her today we will attempt to call her tomorrow. #Full code DVT prophylaxis: Heparin Liver cirrhosis diet, 2 g sodium We will add physical therapy occupational therapy consult for the patient. Attestations Medical Necessity Statement*: > 24 hour stay. Coding Level of Care Code Acute Chemistry Quality Control Technician for [facility] Diagnoses Esophageal varices I85.00 Ascites R18.8 Diabetic neuropathy E11.40 Diabetes type 2, uncontrolled E11.65 Liver cirrhosis K74.60 Right lower lobe pneumonia J18.9
[2021-08-27 15:57] VITALS: BP 132/76; PULSE 92; RESP 16; TEMP 36.8; O2SAT 94
[2021-08-27] MEDS: magnesium sulfate premix 2 GM/50 ML PIGGYBACK IV (17:02)
[2021-08-27 20:00] VITALS: BP 121/66; PULSE 63; RESP 16; TEMP 36.5; O2SAT 94
[2021-08-28] VITALS: BP 120/66; PULSE 62; RESP 16; TEMP 36.5; O2SAT 94
[2021-08-28 04:00] VITALS: BP 109/66; PULSE 62; RESP 15; TEMP 36.4; O2SAT 93
[2021-08-28 06:08] LABS: Basophils % 0.9 %; Eosinophils # 0.4 10^3/uL (0.0-0.8); Eosinophils % 10.4 %; Hematocrit 30.9 % (42.0-52.0); Hemoglobin 11.1 g/dL (11.7-16.6); Lymphocytes # 0.6 10^3/uL (0.8-4.8); Lymphocytes % 17.5 %; Mean Corpuscular HGB Conc 35.9 g/dL (30.0-36.0); Mean Corpuscular Hemoglobin 33.1 pg (28.0-34.0); Mean Corpuscular Volume 92.2 fl (80-94); Mean Platelet Volume 9.9 fL (7.4-10.4); Monocytes # 0.4 10^3/uL (0.2-0.9); Monocytes % 10.4 %; Neutrophils # 2.04 10^3/uL (1.8-7.7); Neutrophils % 60.5 %; Nucleated Red Blood Cells % 0 %; Platelet Count 152 10^3/cmm (130-400); Red Blood Count 3.35 10^6/uL (4.1-5.3); White Blood Count 3.4 10^3/uL (4.0-10.0)
[2021-08-28] MEDS: heparin 5,000 unit/mL INJ 1 mL 5000 UNIT SUBCUT ×2 (06:28→16:30)
[2021-08-28 06:30] LABS: Anion Gap 13.7 (5-19); Blood Urea Nitrogen 12 mg/dL (8-23); Calcium 7.6 mg/dL (8.5-10.5); Carbon Dioxide 22 mmol/L (22-29); Chloride 106 mmol/L (98-107); Glucose 59 mg/dL (65-115); Magnesium 1.6 mg/dL (1.7-2.3); Osmolality Calculated 284 mOsm/kg (285-295); Potassium 3.7 mmol/L (3.5-5.1); Sodium 138 mmol/L (136-145)
[2021-08-28 06:39] LABS: Glucose Point of Care 70 mg/dL (70-110)
[2021-08-28 08:00] VITALS: BP 123/77; PULSE 78; RESP 16; TEMP 36.5; O2SAT 98
[2021-08-28] MEDS: cefTRIAXone 2,000 MG in sodium chloride 0.9% (plus) 50 ML 100 MG IV (08:01)
[2021-08-28] MEDS: FUROsemide 40 mg Tablet PO (08:04)
[2021-08-28] MEDS: spironolactone 25 mg Tablet 100 MG PO (08:04)
[2021-08-28] MEDS: gabapentin 300 mg Capsule PO (08:04)
[2021-08-28] MEDS: tamsulosin 0.4 mg Capsule PO (08:04)
[2021-08-28] MEDS: lactulose oral liq 20 gm/30 mL UDC PO ×3 (08:04→22:23)
[2021-08-28] MEDS: azithromycin 500 MG in sodium chloride 0.9% 250 ML 250 MG IV (10:47)
[2021-08-28 11:54] VITALS: BP 109/68; PULSE 78; RESP 16; TEMP 37.1; O2SAT 100
--- NOTE | 2021-08-28 14:27 | P.PN_ITS ---
Subjective Subjective: Interval history: Patient keeps asking about a book with contact info No overnight events Awaiting long term placement Patient is able to tell me about his name, place No asterixis noted Following my commands appropriately Afebrile Vitals/I&O/Wt Last Vital Signs Temp 98.7 F 08/28/21 11:54 Pulse 78 08/28/21 11:54 Resp 16 08/28/21 11:54 BP 109/68 08/28/21 11:54 Pulse Ox 100 08/28/21 11:54 08/27/21 08/28/21 08/28/21 22:59 06:59 14:59 Intake Total 410 / 1190 780 / 780 Output Total 1000 / 1000 550 / 1550 Balance -590 / 190 -550 / -360 780 / 780 Physical Exam Narrative: EXAM NARRATIVE: Laying comfortably in his bed Saturating well on room air No asterixis Oriented to place time and person Nonfocal neuro exam Limited range of motion at shoulder joints bilaterally Asterixis negative Making eye contact, S1, S2 Clinically looks dehydrated Abdomen soft no signs of ascites Lower symmetry no edema Bilateral breath sound without audible stridor or wheezing Urinary Catheter Management^: Valera: Cath Placed During This Visit: yes Reason for Continuing Indwelling Catheter: Accurate Measurement of Urinary Outpu t in Critically Ill Patients Urinary Catheter Date of Insertion: 08/25/21 Urinary Catheter Time of Insertion: 16:50 Data : 08/28/21 05:17 08/28/21 05:17 A&P Assessment and plan (1) Esophageal varices: Status: Acute (2) Ascites: Status: Acute (3) Diabetic neuropathy: Status: Acute (4) Diabetes type 2, uncontrolled: Status: Acute (5) Liver cirrhosis: Status: Acute (6) Lumbar stenosis with neurogenic claudication: Status: Acute (7) Right lower lobe pneumonia: Status: Acute Additional A&P Information Altered mental status secondary to hepatic encephalopathy Improved, continue lactulose and rifaximin At the time of discharge lactulose and nadolol recommended Might do low-dose Lasix and spironolactone in absence of severe ascites Right lower lobe pneumonia we will add Levaquin and discontinue IV antibiotics, currently doing well on room air Patient is following commands adequately no word finding difficulty MRI head unremarkable Consistent carb diet Full code Heparin DVT prophylaxis Awaiting long term placement Attestations Medical Necessity Statement*: Awaiting long term placement Time Spent in Patient Care: less than 15 minutes Coding Level of Care Code Acute Snap Attacher for Chg Fwd Diagnoses Esophageal varices I85.00 Ascites R18.8 Diabetic neuropathy E11.40 Diabetes type 2, uncontrolled E11.65 Liver cirrhosis K74.60 Lumbar stenosis with neurogenic claudication M48.062 Right lower lobe pneumonia J18.9
[2021-08-28 16:00] VITALS: BP 113/70; PULSE 67; RESP 18; TEMP 36.4; O2SAT 98
[2021-08-28 20:00] VITALS: BP 125/69; PULSE 84; RESP 16; TEMP 36.6; O2SAT 98
[2021-08-28 21:01] LABS: Glucose Point of Care 254 mg/dL (70-110)
[2021-08-29] VITALS: BP 112/62; PULSE 66; RESP 16; TEMP 37; O2SAT 95
[2021-08-29 04:00] VITALS: BP 131/79; PULSE 68; RESP 77; TEMP 36.6; O2SAT 98
[2021-08-29] MEDS: levoFLOXacin 750 mg Tablet PO (06:52)
[2021-08-29] MEDS: heparin 5,000 unit/mL INJ 1 mL 5000 UNIT SUBCUT ×2 (06:52→18:17)
[2021-08-29 08:00] VITALS: BP 127/57; PULSE 78; RESP 18; TEMP 36.4; O2SAT 98
[2021-08-29] MEDS: lactulose oral liq 20 gm/30 mL UDC PO ×2 (09:11→14:02)
[2021-08-29] MEDS: tamsulosin 0.4 mg Capsule PO (09:11)
[2021-08-29] MEDS: gabapentin 300 mg Capsule PO (09:11)
[2021-08-29] MEDS: FUROsemide 20 mg Tablet PO (09:11)
[2021-08-29] MEDS: spironolactone 25 mg Tablet 50 MG PO (09:11)
[2021-08-29 11:57] VITALS: BP 114/71; PULSE 73; RESP 18; TEMP 36.4; O2SAT 98
--- NOTE | 2021-08-29 12:32 | PC.SOCIAL ---
IMM Updated Updated pt on IMM. No questions voiced. Provided Pt a copy. Initialed, dated, & timed copy in chart.
--- NOTE | 2021-08-29 14:47 | P.DS_ITS ---
Discharge Providers Date of Admission: 08/24/21 12:07 Date of Discharge: August 29, 2021 Attending Provider at Admission: Stacy Liu MD Attending Provider at Discharge: Mingo Alonso MD Primary Care Provider: Gary Deras MD Diagnoses at Discharge Discharge Diagnosis (1) Esophageal varices: Status: Acute (2) Ascites: Status: Acute (3) Diabetic neuropathy: Status: Acute (4) Diabetes type 2, uncontrolled: Status: Acute (5) Liver cirrhosis: Status: Acute (6) Lumbar stenosis with neurogenic claudication: Status: Acute (7) Right lower lobe pneumonia: Status: Acute Reason for Visit Reason for Visit: AMS/ FALL/ GENERALIZED WEAKNESS Physical Exam Urinary Catheter Management^: Valera: Cath Placed During This Visit: yes Reason for Continuing Indwelling Catheter: Accurate Measurement of Urinary Output in Critically Ill Patients Urinary Catheter Date of Insertion: 08/25/21 Urinary Catheter Time of Insertion: 16:50 Discharge Data Data Completed and Pending: Completed Studies During Hospitalization Category Date Time Status CT abdomen pelvis w con* 31650 Rout ine Cat Scan 08/25/21 12:[address] cervical spin wo con* 24123 Stat Cat Scan 08/24/21 09:[address] head wo con* 7 0450 Stat Cat Scan 08/24/21 09:10 Completed Modified barium s wallow [FL barium swallow modifd 742 30 Exams 08/25/21 15:22 Completed ] Routine XR chest 1V teri ble 90164 Stat Exams 08/24/21 09:10 Completed MR head wo con* 7 0551 Stat MRI 08/25/21 17:30 [place] [address] Routine Ultrasound 08/25/21 17:45 Completed Pending at discharge Category Date Time Status Urine Culture Sta t Lab 08/24/21 13:26 Ordered Labs from last 24 hours 08/28/21 20:57 POC Glucose 254 H Vitals: Last Vital Signs Temp 97.5 F L 08/29/21 11:57 Pulse 73 08/29/21 11:57 Resp 18 08/29/21 11:57 BP 114/71 08/29/21 11:57 Pulse Ox 98 08/29/21 11:57 Discharge Plan Discharge Patient Disposition: Home Prescriptions: No Action Xifaxan 200 mg tablet 400 mg PO TID Qty: 120 RF: 6 spironolactone [Aldactone] 100 mg tablet 100 mg PO DAILY Qty: 90 RF: 3 tamsulosin 0.4 mg capsule 0.4 mg PO DAILY RF: 0 milk thistle 175 mg tablet 175 mg PO DAILY RF: 0 lactulose 10 gram/15 mL solution 30 g PO DAILY Qty: 473 RF: 1 Levemir FlexTouch U-100 Insuln 100 unit/mL (3 mL) insulin pen 10 - 12 unit SUBCUT DAILY RF: 0 hydrocodone-acetaminophen 5-325 mg tablet 1 tab PO Q4H PRN (Reason: Pain) RF: 0 gabapentin 300 mg capsule 300 mg PO DAILY RF: 0 nadolol 40 mg tablet 40 mg PO DAILY@12 RF: 0 Referrals: [facility] [Outside] Patient Instructions: Opioid Safety Coding Level of Care Code Acute [facility] note Diagnoses Esophageal varices I85.00 Ascites R18.8 Diabetic neuropathy E11.40 Diabetes type 2, uncontrolled E11.65 Liver cirrhosis K74.60 Lumbar stenosis with neurogenic claudication M48.062 Right lower lobe pneumonia J18.9
[2021-08-29 15:53] VITALS: BP 102/51; PULSE 80; RESP 18; TEMP 36.4; O2SAT 99
--- NOTE | 2021-08-29 16:14 | P.PN_ITS ---
Subjective Subjective: Interval history: This morning patient refused to go to intermediate however sister came in and convince him to go to a intermediate for about 10 to 12 days, he has been accepted will go to intermediate tomorrow morning, no overnight events, Vitals/I&O/Wt Last Vital Signs Temp 97.6 F 08/29/21 15:53 Pulse 80 08/29/21 15:53 Resp 18 08/29/21 15:53 BP 102/51 08/29/21 15:53 Pulse Ox 99 08/29/21 15:53 08/29/21 08/29/21 08/29/21 06:59 14:59 22:59 Intake Total 360 / 360 Balance 360 / 360 Physical Exam Narrative: EXAM NARRATIVE: EOMI, PERRLA No asterixis S1, S2 Euvolemic Rotation lethargic No ascites No audible stridor or wheezing Saturating well on room air Urinary Catheter Management^: Valera: Cath Placed During This Visit: yes Reason for Continuing Indwelling Catheter: Accurate Measurement of Urinary Output in Critically Ill Patients Urinary Catheter Date of Insertion: 08/25/21 Urinary Catheter Time of Insertion: 16:50 Data : 08/28/21 05:17 08/28/21 05:17 Micro: Microbiology 08/24/21 10:16 Blood Culture - Final Blood NO GROWTH AFTER 5 DAYS 08/24/21 10:16 Blood Culture - Final Blood NO GROWTH AFTER 5 DAYS A&P Assessment and plan (1) Right lower lobe pneumonia: Status: Acute (2) Esophageal varices: Status: Acute (3) Ascites: Status: Acute (4) Diabetic neuropathy: Status: Acute (5) Diabetes type 2, uncontrolled: Status: Acute (6) Liver cirrhosis: Status: Acute Additional A&P Information Liver cirrhosis without active decompensation Plan to discharge him tomorrow morning Today he refused intermediate in the morning and it was too late by the time he agreed That is why he is staying 1 extra day in the hospital will be discharged fasting in the morning Have not made any changes in his medications Attestations Medical Necessity Statement*: Discharge tomorrow morning Time Spent in Patient Care: less than 15 minutes Coding Level of Care Code Acute [facility] for [facility] Fwd Diagnoses Right lower lobe pneumonia J18.9 Esophageal varices I85.00 Ascites R18.8 Diabetic neuropathy E11.40 Diabetes type 2, uncontrolled E11.65 Liver cirrhosis K74.60
[2021-08-29 16:49] LABS: Glucose Point of Care 144 mg/dL (70-110)
--- NOTE | 2021-08-29 19:46 | PC.NURSE ---
Shift report received from Jackie NAVAS. Patient in bed /resting. No s/s of pain or discomfort at this time.
[2021-08-29 20:00] VITALS: BP 116/62; PULSE 82; RESP 21; TEMP 37.6; O2SAT 96
[2021-08-29 21:15] LABS: Glucose Point of Care 208 mg/dL (70-110)
[2021-08-30] VITALS: BP 150/86; PULSE 77; RESP 19; TEMP 36.3; O2SAT 99
[2021-08-30 04:00] VITALS: BP 135/78; PULSE 67; RESP 20; TEMP 36.4; O2SAT 100
[2021-08-30] MEDS: levoFLOXacin 750 mg Tablet PO (06:37)
[2021-08-30] MEDS: heparin 5,000 unit/mL INJ 1 mL 5000 UNIT SUBCUT (06:37)
[2021-08-30 06:53] LABS: Glucose Point of Care 142 mg/dL (70-110)
[2021-08-30 07:35] VITALS: BP 131/84; PULSE 82; RESP 16; TEMP 36.4; O2SAT 98
[2021-08-30] MEDS: spironolactone 25 mg Tablet 50 MG PO (08:39)
[2021-08-30] MEDS: FUROsemide 20 mg Tablet PO (08:39)
[2021-08-30] MEDS: lactulose oral liq 20 gm/30 mL UDC PO (08:39)
[2021-08-30] MEDS: gabapentin 300 mg Capsule PO (08:39)
[2021-08-30] MEDS: tamsulosin 0.4 mg Capsule PO (08:40)
--- NOTE | 2021-08-30 08:59 | PC.SOCIAL ---
Shyla at [facility] asked if they could double the lactulose order since they only carry half the recommended dose suspension. They carry 10g/15ml instead of 20g/30ml. Let Shyla know patient is being dc'd to [facility]. she indicates [facility] fills for them. verbal order given to double in order to equal the amount ordered by Dr Alonso if [facility] fills from them.
--- NOTE | 2021-08-30 10:15 | PM.DCS ---
Discharge Providers Date of Admission: 08/24/21 12:07 Date of Discharge: August 30, 2021 Attending Provider at Admission: Stacy Liu MD Attending Provider at Discharge: Mingo Alonso MD Primary Care Provider: Gray Deras MD Diagnoses at Discharge Discharge Diagnosis (1) Right lower lobe pneumonia: Status: Acute (2) Esophageal varices: Status: Acute (3) Ascites: Status: Acute (4) Diabetic neuropathy: Status: Acute (5) Diabetes type 2, uncontrolled: Status: Acute (6) Liver cirrhosis: Status: Acute Reason for Visit Reason for Visit: AMS/ FALL/ GENERALIZED WEAKNESS Hospital Course Hospital Course History of Present Illness by Dr. Alexa Daley Walter is a 76 year old male with past medical history of diabetes and advanced alcoholic cirrhosis with large ascites as evidenced from primary care notes presents to the hospital today for altered mental status. There is no other past medical history available on the chart. There is no family present bedside with the patient. It seems that he had a paracentesis done a month ago. He is on lactulose rifaximin, Levemir nadolol for esophageal varices. Patient presented today with encephalopathy and he was more confused as per ER. History obtained is from ER doctor. Review of systems unable to be obtained due to patient's mental status. Unable to obtain any history either since patient is altered. ED course: ED physician states that patient presented with altered mental status family did state that he was more confused for the past 4 to 5 days. They stated today they found him staring off into the corner and did not know exactly where he was. Patient denied any focal pain. He did have a fall a week ago but does not report any focal trauma or pain. Denies focal numbness weakness or tingling. Denies shortness of breath chest pain abdominal pain or dysuria. BP 155/68, respiratory 23, pulse rate 88, temperature 98.7, pulse ox 99%. CT scan of head and C-spine does not reveal any sign of acute abnormality. X-ray is concerning for pneumonia. Patient given one dose of Rocephin and azithromycin. Ammonia level 79 today. Hospitalist was called for admission Hospital course Patient was admitted for evaluation and management of altered mental status related to hepatic encephalopathy, ammonia level 79. His symptoms improved with use of lactulose, rifaximin mean. Lasix and spironolactone were added for concern of ascites. Ascitic fluid not enough to be drained as per the ultrasound report. Patient does have portal hypertension findings for which he was put on nadolol and ceftriaxone. He remained afebrile, abdomen was soft no signs of SBP. He was covered with ceftriaxone 2 g daily during hospitalization. Cultures remain negative. For right lower lobe pneumonia he was treated with antibiotics. He was experiencing word finding difficulty, MRI head did not show any evidence of stroke, he was placed on ground meat dysphagia diet. At the time of discharge he will get lactulose, nadolol and rifaximin. Patient lives alone, PT deemed him unstable to return home, he will go to [facility]. He was reluctant to go to the [place] [facility] however sister spoke with him and he agreed. Please note he required paracentesis 08/07, as per the note 9300 mL drained at that time, follows up with Dr. Deras for management of his liver cirrhosis and ascites, did see valve inspector for diabetes related diabetic neuropathy valve inspector recommended detemir 10 units daily along sitagliptin?Metformin combination Physical Exam Narrative: EXAM NARRATIVE: EOMI, PERRLA No asterixis S1, S2 Euvolemic Rotation lethargic No ascites No audible stridor or wheezing Saturating well on room air Urinary Catheter Management^: Valera: Cath Placed During This Visit: yes Reason for Continuing Indwelling Catheter: Accurate Measurement of Urinary Output in Critically Ill Patients Urinary Catheter Date of Insertion: 08/25/21 Urinary Catheter Time of Insertion: 16:50 Discharge Data Data Completed and Pending: Completed Studies During Hospitalization Category Date Time Status CT abdomen pelvis w con* 28448 Rout ine Cat Scan 08/25/21 12:[address] cervical spin wo con* 54594 Stat Cat Scan 08/24/21 09:[address] head wo con* 7 4765 Stat Cat Scan 08/24/21 09:10 Completed Modified barium s wallow [FL barium swallow modifd 742 30 Exams 08/25/21 15:22 Completed ] Routine XR chest 1V teri ble 43967 Stat Exams 08/24/21 09:10 Completed MR head wo con* 7 0551 Stat MRI 08/25/21 17:30 Com[place] [address] Routine Ultrasound 08/25/21 17:45 Completed Pending at discharge Category Date Time Status Urine Culture Sta t Lab 08/24/21 13:26 Ordered Labs from last 24 hours 08/30/21 08/29/21 08/29/21 06:41 20:55 16:43 POC Glucose 142 H 208 H 144 H Vitals: Last Vital Signs Temp 97.5 F L 08/30/21 07:35 Pulse 82 08/30/21 07:35 Resp 16 08/30/21 07:35 BP 131/84 08/30/21 07:35 Pulse Ox 98 08/30/21 07:35 Discharge Plan Discharge Patient Disposition: Xfer SNF Condition: Stable Prescriptions: New nadolol 20 mg Tablet 20 mg PO DAILY Qty: 30 RF: 0 levofloxacin 750 mg Tablet 750 mg PO DAILY@0600 Qty: 5 RF: 0 lactulose 20 gram/30 mL Solution 20 g PO BID Qty: 60 RF: 0 Rifaximin [Xifaxan] 400 mg PO BID Qty: 60 RF: 0 Lasix 20 mg tablet 20 mg PO DAILY Qty: 30 RF: 0 spironolactone 25 mg tablet 25 mg PO DAILY Qty: 30 RF: 0 Continued Xifaxan 200 mg tablet 400 mg PO TID Qty: 120 RF: 6 tamsulosin 0.4 mg capsule 0.4 mg PO DAILY RF: 0 lactulose 10 gram/15 mL solution 30 g PO DAILY Qty: 473 RF: 1 Levemir FlexTouch U-100 Insuln 100 unit/mL (3 mL) insulin pen 10 - 12 unit SUBCUT DAILY RF: 0 gabapentin 300 mg capsule 300 mg PO DAILY RF: 0 nadolol 40 mg tablet 40 mg PO DAILY@12 RF: 0 Discontinued spironolactone [Aldactone] 100 mg tablet 100 mg PO DAILY Qty: 90 RF: 3 milk thistle 175 mg tablet 175 mg PO DAILY RF: 0 hydrocodone-acetaminophen 5-325 mg tablet 1 tab PO Q4H PRN (Reason: Pain) RF: 0 Discharge Orders: Discharge Order (Routine); Ordered 08/30/21 Ordered By: Mingo Alonso Referrals: [facility] [Outside] Discharge Diet: As Directed Discharge Activity: Use walker/crutches as instructed Patient Instructions: Nadolol (By mouth), Lactulose (By mouth), Levofloxacin (By mouth), Rifaximin (By mouth) Discharge Attestations Time Spent in Discharge Care*: less than 30 min Quality Metrics Clinical Quality Measures During this hospital stay, did patient experience: None Coding Level of Care Code Acute [facility] note Diagnoses Right lower lobe pneumonia J18.9 Esophageal varices I85.00 Ascites R18.8 Diabetic neuropathy E11.40 Diabetes type 2, uncontrolled E11.65 Liver cirrhosis K74.60
[2021-08-30 12:06] VITALS: BP 131/84; PULSE 82; RESP 16; TEMP 36.4; O2SAT 98
== END 2021-08-30 12:07 | disposition skilled nursing facility (03) | DRG 441 ==
LOC: ER 19:39 → MEDSURG 19:55
PROVIDERS: Admitting Provider Internal Medicine; Emergency Provider Emergency Medicine; PCP Internal Medicine; Visit Provider Internal Medicine
DX: K72.90 Hepatic failure, unspecified without coma (principal); J18.9 Pneumonia, unspecified organism; I85.00 Esophageal varices without bleeding; K76.6 Portal hypertension; E72.20 Disorder of urea cycle metabolism, unspecified; K70.31 Alcoholic cirrhosis of liver with ascites; E11.65 Type 2 diabetes mellitus with hyperglycemia; E11.40 Type 2 diabetes mellitus with diabetic neuropathy, unspecified; R41.82 Altered mental status, unspecified; I10 Essential (primary) hypertension; R13.10 Dysphagia, unspecified; R47.9 Unspecified speech disturbances; F10.21 Alcohol dependence, in remission; Z91.81 History of falling; Z79.4 Long term (current) use of insulin
CPT/HCPCS: 36415; 36416; 49083; 51702; 70450; 70551; 71045; 72125; 74177; 74230; 76705; 80048; 80053; 80307; 80500; 81001; 82140; 82607; 82746; 82962; 83605; 83690; 83735; 83880; 84100; 84439; 84443; 84484; 85025; 85610; 87040; 87426; 92523; 92526; 92610; 92611; 93005; 96365; 96366; 96367; 96372; 96375; 97116; 97162; 97167; 97530; 97535; 99285; J0456; J0696; J1630; J1644; J1815; J3475; J3490; J7050; Q9967

== ENCOUNTER 2021-09-09 17:39 | Inpatient (IN) | payer MEDICARE, SELFPAY ==
--- NOTE | 2021-09-09 18:16 | XRR_ITS ---
PROCEDURE INFORMATION: Exam: XR Chest Exam date and time: 09/09/2021 6:16 PM Age: 76 years old Clinical indication: Other: AMS TECHNIQUE: Imaging protocol: XR of the chest. Views: 1 view. Total images: 1 COMPARISON: CR XR chest 1V portable [id number] 08/24/2021 9:31 AM FINDINGS: Lungs: No visible active interstitial or alveolar airspace disease. Pleural spaces: Unremarkable. No pleural effusion. No pneumothorax. Heart/Mediastinum: Cardiac structures and configuration stable. Bones/joints: Old bilateral rib fractures. XR/XR chest 1V portable [id number] IMPRESSION: Nonacute.
--- NOTE | 2021-09-09 18:16 | CTR_ITS ---
PROCEDURE INFORMATION: Exam: CT Head Without Contrast Exam date and time: 09/09/2021 6:16 PM Age: 76 years old Clinical indication: Altered mental status/memory loss; Additional info: AMS TECHNIQUE: Imaging protocol: Computed tomography of the head without contrast. Total images: 213 Radiation optimization: All CT scans at this facility use at least one of these dose optimization techniques: automated exposure control; mA and/or kV adjustment per patient size (includes targeted exams where dose is matched to clinical indication); or iterative reconstruction. COMPARISON: MR head wo con* [id number] 08/25/2021 5:42 PM RADIATION DOSE METRICS: Total DLP (mGy-cm): 1288.63 FINDINGS: Brain: No evidence of active or acute intracranial pathologic process, hemorrhage, or trauma. Mild small vessel ischemic disease with senile periventricular leukomalacia. No mass effect. No midline shift. No hyperdense MCA or insular ribbon sign. Cerebral arteriosclerosis. Cerebral ventricles: No ventriculomegaly. Paranasal sinuses: Small air-fluid level right maxillary sinus of active right maxillary sinusitis. Mastoid air cells: Visualized mastoid air cells are well aerated. Bones/joints: Unremarkable. No acute fracture. Soft tissues: Unremarkable. CT/CT head wo con* [id number] IMPRESSION: 1. No evidence of active or acute intracranial pathologic process, hemorrhage, or trauma. 2. Right maxillary sinusitis.
--- NOTE | 2021-09-09 18:17 | ECG_ITS ---
[facility] Test Date: 2021-09-09 Pat Name: Johann Watson Department: Room: Gender: Male Cat Breeder: : 1945 Requested By: Sean Montesinos Order Number: [id number] Santiago MD: Harriet Sarabia M.D. Measurements Intervals [place] Rate: 102 P: 12 DE: 136 QRS: 21 QRSD: 90 T: -12 QT: 359 QTc: 468 Interpretive Statements SINUS TACHYCARDIA ABNORMAL RHYTHM ECG Compared to ECG 08/24/2021 13:53:18 Sinus rhythm no longer present Electronically Signed On 09-11-2021 15:40:01 [employer] FINISH[employer] by Harriet Sarabia M.D. [id number]
[2021-09-09 18:26] VITALS: BP 128/62; PULSE 109; RESP 16; TEMP 37.3; O2SAT 99; BMI 21.5
[2021-09-09 18:30] LABS: ABG PCO2 31.2 mmHg (35-45); ABG PH Result 7.54 (7.35-7.45); Arterial Blood Gas Hematocrit 33.6 % (42-52); Blood Gas Allen Test Pos; Blood Gas Operator Identificat CAK; Blood Gas Sample Site Radial, right; Blood Gas Sample Type Arterial; HCO3 ABG 26.4 mmol/L (22-26); Oxygen Device ROOM AIR; PO2 ABG 76.7 mmHg (80.0-100.0)
--- NOTE | 2021-09-09 18:31 | ED_ITS ---
HPI - Altered Mental Status General: Chief Complaint: Altered Mental Status Stated Complaint: UNRESPONSIVE; STROKE LIKE SYMPTOMS Time Seen by Provider: 09/09/21 18:04 History of Present Illness: HPI narrative: 76-year-old male group home patient. Unknown baseline mental status, although it is reported that he is usually awake and talks. We got no report from group home, the patient is nonverbal currently, so history is sketchy at best. intermediate reported that he woke up like this this morning. Patient is not following commands, not verbalizing. Eyes are open, he withdraws from pain. He had a mildly elevated temperature on the way here. By history, he has a history of liver disease. On exam, when disturbed or with noxious stimulus, the patient simply says goddamit . Which he has said several times. MD complaint: altered mental status Onset (ago): unknown Timing confirmed by: caregiver Severity: moderate Context: history of similar presentation Treatments prior to arrival: other (none) Review of Systems General: Reports: ROS unobtainable due to medical condition and ROS unobtainable due to mental status Neuro: Reports: behavioral changes PFSH ED PFSH: Medical History Diabetes Surgical History No pertinent past surgical history Family History Father Diabetes Mother Arthritis H/O heart artery stent Social History Smoking and tobacco status: never smoked Second hand smoke exposure: No Smoking risk assessment/counseling performed?: Yes Alcohol intake: former Desire information about alcohol rehabilitation?: No Counseling given: No Desire information about substance/drug rehabilitation?: No Counseling given: No Adopted: No Caregiver/support person: No Lives independently: Yes Household members: none Housing: House Marital status: Single Highest education level completed: Associate Degree: Academic Program service: No Current occupational status: retired History of recent travel: No Sexually active: No Current gender identity: Male Agree to transfusion: Yes Physical Exam Const: GENERAL APPEARANCE: lethargic, ill appearing and frail appearing ORIENTATION/CONSCIOUSNESS: Yes awake, Yes confused and Yes lethargic; not oriented to person, not oriented to place and not oriented to time HENMT: COMMON NORMALS: normocephalic, atraumatic and Normal external nose present HEAD & SCALP: normocephalic and atraumatic FACE & SINUS: normal facial exam and face symmetric NOSE: Normal external nose present Eye: COMMON NORMALS: Equal, round and reactive pupils present and conjunctivae normal CONJUNCTIVA: Yes conjunctivae normal PUPIL: Yes Equal, round and reactive pupils present Chest: COMMONS NORMALS: normal inspection of the chest Resp: COMMON NORMALS: normal respiratory effort and clear to auscultation bilaterally AUSCULTATION: clear to auscultation bilaterally and diminished lung sounds Neuro: MEME COMA SCALE: document GCS findings Strong coma scale eye opening: Spontaneous Meme coma scale verbal response: Words Strong coma scale motor response: Localising Strong coma scale total score: 12 SENSORIUM/ORIENTATION: No oriented to person, No oriented to place, No oriented to time and Yes lethargic Course Consultations: Consultation #1: izzy Time: 21:30 Vital Signs: Vital signs: Vital Signs Temperature 99.1 F 09/09/21 18:26 Pulse Rate 112 H 09/09/21 18:32 Respiratory Rate 16 09/09/21 18:26 Blood Pressure 143/79 09/09/21 18:32 Pulse Oximetry 99 09/09/21 18:32 MDM - Altered Mental Status MDM Narrative: Medical decision making narrative: 76-year-old gentleman with end-stage chronic liver disease. His platelet count is 127. His INR is 1.3. White blood cell count 5.9, hemoglobin 12.6. His ammonia level is significantly elevated at 95. Chest x-ray negative. Head CT negative. Urinalysis is negative. Source of mental status changes likely the ammonia level/hepatic encephalopathy. Spoke to hospitalist. They will admit. Lab Data: Labs: Lab Results 09/09/21 09/09/21 09/09/21 17:58 17:58 17:58 WBC 5.9 10^3/uL 10^3/ uL (4.0-10.0) RBC 3.72 10^6/uL L 10 ^6/uL (4.1-5.3) Hgb 12.6 g/dL g/dL (11.7-16.6) Hct 34.8 % L % (42.0-52.0) MCV 93.5 fl fl (80-94) MCH 33.9 pg pg (28.0-34.0) MCHC 36.2 g/dL H g/dL (30.0-36.0) RDW 14.8 % % (12.1-15.1) Plt Count 127 10^3/cmm L 10 ^3/cmm (130-400) MPV 10.2 fL fL (7.4-10.4) Neut % (Auto) 94.1 % % Lymph % (Auto) 2.4 % % [place] % (Auto) 2.9 % % Eos % (Auto) 0.0 % % Baso % (Auto) 0.3 % % Neut # (Auto) 5.59 10^3/uL 10^3 /uL (1.8-7.7) Lymph # (Auto) 0.1 10^3/uL L 10^ 3/uL (0.8-4.8) [place] # (Auto) 0.2 10^3/uL 10^3/ uL (0.2-0.9) Eos # (Auto) 0.0 10^3/uL 10^3/ uL (0.0-0.8) Baso # (Auto) 0.0 10^3/uL 10^3/ uL (0.0-0.1) Nucleated RBC % (a uto) 0 % % Nucleated RBCs # 0.0 /100WBC /100W BC PT 16.80 SECONDS H S ECONDS (12.1-14.9) INR 1.32 H (0.8-1.2) D-Dimer 2.49 ug/mIFEU H u g/mIFEU (0-0.59) Specimen Type Sample Site ABG pH ABG pCO2 ABG pO2 ABG HCO3 ABG Base Excess Timothy Test Hematocrit O2 Delivery Device FiO2 Mallet And Die Cutter ID Sodium 142 mmol/L mmol/L (136-145) Potassium 3.8 mmol/L mmol/L (3.5-5.1) Chloride 106 mmol/L mmol/L (98-107) Carbon Dioxide 23 mmol/L mmol/L (22-29) Anion Gap 16.8 (5-19) BUN 22 mg/dL mg/dL (8-23) Creatinine 0.6 mg/dL L mg/dL (0.7-1.2) GFR Calculation Not Reportable Glucose 233 mg/dL H mg/dL (65-115) Calculated Osmolal ity 305 mOsm/kg H mOs m/kg (285-295) Lactate Calcium 7.9 mg/dL L mg/dL (8.5-10.5) Magnesium 1.6 mg/dL L mg/dL (1.7-2.3) Total Bilirubin 1.8 mg/dL H mg/dL (0.15-1.2) AST 27 U/L U/L (0-40) ALT 24 U/L U/L (0-41) Alkaline Phosphata se 95 IU/L IU/L (40-130) Ammonia Creatine Kinase 40 U/L U/L (39-308) Troponin T Baselin e Troponin T [address] [facility] Delta Troponin T C-Reactive Protein 21.3 mg/L H mg/L (0.0-4.9) NT-Pro-B Natriuret Pep 272 pg/mL H pg/mL (0-125) Total Protein 5.9 g/dL L g/dL (6.6-8.7) Albumin 2.9 g/dL L g/dL (3.5-5.2) Globulin 3.0 g/dL g/dL (1.3-4.6) Procalcitonin 0.19 ng/mL ng/mL (0-0.5) Urine Color Urine Appearance Urine pH Ur Specific Gravit y Urine Protein Urine Glucose (UA) Urine Ketones Urine Blood Urine Nitrate Urine Bilirubin Urine Urobilinogen Ur Leukocyte Ashley ase Urine RBC Urine WBC Ur Squamous Epith Cells Amorphous Sediment Urine Bacteria 09/09/21 09/09/21 09/09/21 17:58 17:58 18:04 WBC RBC Hgb Hct MCV MCH MCHC RDW Plt Count MPV Neut % (Auto) Lymph % (Auto) [place] % (Auto) Eos % (Auto) Baso % (Auto) Neut # (Auto) Lymph # (Auto) [place] # (Auto) Eos # (Auto) Baso # (Auto) Nucleated RBC % (a uto) Nucleated RBCs # PT INR D-Dimer Specimen Type Sample Site ABG pH ABG pCO2 ABG pO2 ABG HCO3 ABG Base Excess Timothy Test Hematocrit O2 Delivery Device FiO2 Mallet And Die Cutter ID Sodium Potassium Chloride Carbon Dioxide Anion Gap BUN Creatinine GFR Calculation Glucose Calculated Osmolal ity Lactate 4.0 mmol/L H mmol /L (0.5-2.2) Calcium Magnesium Total Bilirubin AST ALT Alkaline Phosphata se Ammonia Creatine Kinase Troponin T Baselin e 27 ng/L H ng/L (0-15) Troponin T [address] [facility] Delta Troponin T C-Reactive Protein NT-Pro-B Natriuret Pep Total Protein Albumin Globulin Procalcitonin Urine Color Yellow (Yellow) Urine Appearance Clear (CLEAR) Urine pH 6.5 (5-7) Ur Specific Gravit y 1.015 (1.005-1.030) Urine Protein Neg (Negative) Urine Glucose (UA) 4+ H (Normal) Urine Ketones Negative (Negative) Urine Blood 2+ H (Negative) Urine Nitrate Negative (Negative) Urine Bilirubin Neg (Negative) Urine Urobilinogen Norm mg/dL mg/dL (Negative) Ur Leukocyte Ashley ase Negative (Negative) Urine RBC 5-10 /hpf H /hpf (0-2) Urine WBC 0-4 /hpf H /hpf (0-5) Ur Squamous Epith Cells 0-4 /hpf H /hpf (0-5) Amorphous Sediment Not Reportable Urine Bacteria Trace /hpf /hpf (NONE) 09/09/21 09/09/21 09/09/21 18:15 19:19 20:04 WBC RBC Hgb Hct MCV MCH MCHC RDW Plt Count MPV Neut % (Auto) Lymph % (Auto) [place] % (Auto) Eos % (Auto) Baso % (Auto) Neut # (Auto) Lymph # (Auto) [place] # (Auto) Eos # (Auto) Baso # (Auto) Nucleated RBC % (a uto) Nucleated RBCs # PT INR D-Dimer Specimen Type Arterial Sample Site Radial, right ABG pH 7.54 H (7.35-7.45) ABG pCO2 31.2 mmHg L mmHg (35-45) ABG pO2 76.7 mmHg L mmHg (80.0-100.0) ABG HCO3 26.4 mmol/L H mmo l/L (22-26) ABG Base Excess 4.0 mmol/L H mmol /L (-2.0-2.0) Timothy Test Pos Hematocrit 33.6 % L % (42-52) O2 Delivery Device Room air FiO2 21.0 % % Mallet And Die Cutter ID Cak Sodium Potassium Chloride Carbon Dioxide Anion Gap BUN Creatinine GFR Calculation Glucose Calculated Osmolal ity Lactate Calcium Magnesium Total Bilirubin AST ALT Alkaline Phosphata se Ammonia 95 umol/L H umol/ L (16-60) Creatine Kinase Troponin T Baselin e Troponin T [address] [facility] 26.15 ng/L H ng/L (0-15) Delta Troponin T -0.85 ABS# L ABS# (0-10) C-Reactive Protein NT-Pro-B Natriuret Pep Total Protein Albumin Globulin Procalcitonin Urine Color Urine Appearance Urine pH Ur Specific Gravit y Urine Protein Urine Glucose (UA) Urine Ketones Urine Blood Urine Nitrate Urine Bilirubin Urine Urobilinogen Ur Leukocyte Ashley ase Urine RBC Urine WBC Ur Squamous Epith Cells Amorphous Sediment Urine Bacteria Discharge Plan Discharge Patient Disposition: Admitted As Inpatient Admit Provider: Kalie Huffman Clinical Impression: Acute hepatic encephalopathy Condition: Serious Coding Level of Care Code ED Manager Business Information for Robbie Fwd Exam Detailed
[2021-09-09 18:32] VITALS: BP 143/79; PULSE 112; O2SAT 99
[2021-09-09 18:32] LABS: Basophils % 0.3 %; Hematocrit 34.8 % (42.0-52.0); Hemoglobin 12.6 g/dL (11.7-16.6); Lymphocytes # 0.1 10^3/uL (0.8-4.8); Lymphocytes % 2.4 %; Mean Corpuscular HGB Conc 36.2 g/dL (30.0-36.0); Mean Corpuscular Hemoglobin 33.9 pg (28.0-34.0); Mean Corpuscular Volume 93.5 fl (80-94); Mean Platelet Volume 10.2 fL (7.4-10.4); Monocytes # 0.2 10^3/uL (0.2-0.9); Monocytes % 2.9 %; Neutrophils # 5.59 10^3/uL (1.8-7.7); Neutrophils % 94.1 %; Nucleated Red Blood Cells % 0 %; Platelet Count 127 10^3/cmm (130-400); Red Blood Count 3.72 10^6/uL (4.1-5.3); Red Cell Distribution Width 14.8 % (12.1-15.1); White Blood Count 5.9 10^3/uL (4.0-10.0)
[2021-09-09 18:33] LABS: INR 1.32 (0.8-1.2)
[2021-09-09 18:36] LABS: D Dimer 2.49 ug/mIFEU (0-0.59)
[2021-09-09 18:42] LABS: Troponin(5th) Baseline 27 ng/L (0-15)
[2021-09-09 18:52] LABS: NT Pro B Type Natriuretic Pept 272 pg/mL (0-125); Procalcitonin 0.19 ng/mL (0-0.5)
[2021-09-09 19:02] LABS: Add Urine Microscopic? YES; Bilirubin Urine Neg (Negative); Blood Urine 2+ (Negative); Glucose Urine UA 4+ (Normal); Ketones Urine Negative (Negative); Leukocyte Esterase Urine Negative (Negative); Nitrate Urine Negative (Negative); Protein Urine Neg (Negative); Specific Gravity, Urine 1.015 (1.005-1.030); Urine Appearance Clear (CLEAR); Urine Color Yellow (Yellow); Urobilinogen Urine Norm (Negative); pH Urine 6.5 (5-7)
[2021-09-09 19:03] LABS: Add Urine Culture? No; Bacteria Urine TRACE /hpf; Squamous Epithelial Cell Urine 0-4 /hpf (0-5); WBC Urine 0-4 /hpf (0-5)
[2021-09-09 19:03] LABS: Alanine Aminotransferase 24 U/L (0-41); Albumin Level 2.9 g/dL (3.5-5.2); Alkaline Phosphatase 95 IU/L (40-130); Anion Gap 16.8 (5-19); Aspartate Amino Transferase 27 U/L (0-40); Blood Urea Nitrogen 22 mg/dL (8-23); C Reactive Protein 21.3 mg/L (0.0-4.9); Calcium 7.9 mg/dL (8.5-10.5); Carbon Dioxide 23 mmol/L (22-29); Chloride 106 mmol/L (98-107); Creatine Phosphokinase 40 U/L (39-308); Glucose 233 mg/dL (65-115); Magnesium 1.6 mg/dL (1.7-2.3); Osmolality Calculated 305 mOsm/kg (285-295); Potassium 3.8 mmol/L (3.5-5.1); Sodium 142 mmol/L (136-145); Total Bilirubin 1.8 mg/dL (0.15-1.2); Total Protein 5.9 g/dL (6.6-8.7)
[2021-09-09] MEDS: sodium chloride 0.9% 1,000 ML 999 ML IV (19:20)
[2021-09-09 19:47] LABS: Ammonia 95 umol/L (16-60)
--- NOTE | 2021-09-09 20:17 | ECG_ITS ---
[facility] Test Date: 2021-09-09 Pat Name: Johann Watson Department: Room: Gender: Male Candy Vendor: : [id number] Requested By: Sean Montesinos Order Number: [id number] Henderson MD: Harriet Sarabia M.D. Measurements Intervals [place] Rate: 103 P: 53 NC: 169 QRS: 3 QRSD: 84 T: -20 QT: 361 QTc: 475 Interpretive Statements SINUS TACHYCARDIA MINIMAL ST DEPRESSION [0.025+ mV ST DEPRESSION] ABNORMAL RHYTHM ECG Compared to ECG 09/09/2021 19:02:32 ST (T wave) deviation now present Electronically Signed On 09-11-2021 17:00:05 [employer] by Harriet Sarabia M.D. [id number]
[2021-09-09 20:52] LABS: Troponin 5 2HR 26.15 ng/L (0-15)
[2021-09-09 20:53] LABS: Troponin 5 2HR Delta -0.85 ABS# (0-10)
[2021-09-09 22:28] VITALS: BP 169/84; PULSE 98; RESP 18; TEMP 37.4; O2SAT 95
[2021-09-09 22:36] VITALS: BMI 23.6
--- NOTE | 2021-09-09 23:28 | PM.HP ---
Providers/Chief Complaint Admitting Physician: Kalie Huffman Primary Care Provider: Gary Deras MD Chief Complaint: UNRESPONSIVE; STROKE LIKE SYMPTOMS History of Present Illness 76-year-old with a past medical history significant forDiabetes mellitus, and alcoholic cirrhosis who presented to the hospital with altered mental status. Patient was recently admitted for similar complaint and discharged on 08/30/2021. He was not able to provide any history at the time of my evaluation. Upon arrival to emergency roomHis laboratory workup showed a WBC of 5.9, hemoglobin 12.6, hematocrit 34.9 and platelet count of 127. INR 1.32. D-dimer was elevated 2.49. PH of 7.54, pCO2 of 31.2, PO2 of 76.7 and bicarb 26.4. Sodium 142, potassium 3.8, chloride 106, bicarb 23, BUN 22 and creatinine of 0.6. Glucose was elevated 233. Lactic acid was elevated at 4.0. Magnesium of 1.6. Ammonia was elevated at 95. Troponin T baseline of 27.Repeat of 26.1 CT Head did no acute abnormality. Chest x-ray did not show any acute findings. In Er patient was given NS 1L bolus and admitted. Review of Systems General: Reports: ROS unobtainable due to medical condition and ROS unobtainable due to mental status Medications/Allergies Home Medications Medication Instructions Recorded Confirmed Last Taken Type gabapentin 300 mg PO DAILY 03/07/21 08/24/21 08/23/21 History nadolol 40 mg PO DAILY@12 03/07/21 08/24/21 08/23/21 History tamsulosin 0.4 mg capsule 0.4 mg PO DAILY 07/20/21 08/24/21 08/23/21 History rifaximin 200 mg tablet 400 mg PO TID #120 tab 08/03/21 08/24/21 08/23/21 Rx lactulose 10 gram/15 mL oral 30 g PO DAILY #473 ml 08/23/21 08/24/21 08/23/21 Rx solution Levemir FlexTouch U-100 Insuln 10 - 12 unit SUBCUT DAILY 08/24/21 08/24/21 Unknown History Rifaximin [Xifaxan] 400 mg PO BID #60 tab 08/29/21 Unknown Rx lactulose 20 g PO BID #60 ml 08/29/21 Unknown Rx levofloxacin 750 mg PO DAILY@0600 #5 tab 08/29/21 Unknown Rx nadolol 20 mg PO DAILY #30 tab 08/29/21 Unknown Rx furosemide [Lasix] 20 mg PO DAILY #30 tab 08/30/21 Unknown Rx spironolactone 25 mg PO DAILY #30 tab 08/30/21 Unknown Rx Allergies Allergy/AdvReac Type Severity Reaction Status Date / Time No Known Allergies Allergy Verified 08/24/21 10:39 PFSH Acute PFSH: Medical History Diabetes Surgical History No pertinent past surgical history Family History Father Diabetes Mother Arthritis H/O heart artery stent Social History Smoking and tobacco status: never smoked Second hand smoke exposure: No Smoking risk assessment/counseling performed?: Yes Alcohol intake: former Desire information about alcohol rehabilitation?: No Counseling given: No Desire information about substance/drug rehabilitation?: No Counseling given: No Adopted: No Caregiver/support person: No Lives independently: Yes Household members: none Housing: House Marital status: Single Highest education level completed: Associate Degree: Academic Program service: No Current occupational status: retired History of recent travel: No Sexually active: No Current gender identity: Male Agree to transfusion: Yes Vitals/I&O/Wt Last Vital Signs Temp 98.3 F 09/10/21 04:00 Pulse 92 09/10/21 04:00 Resp 17 09/10/21 04:00 BP 162/71 09/10/21 04:00 Pulse Ox 98 09/10/21 04:00 09/09/21 09/09/21 09/10/21 14:59 22:59 06:59 Intake Total 1000 / 1000 Output Total 800 / 800 Balance 1000 / 1000 -800 / 200 Weight last 48 hrs Weight 75.16 kg Weight 74.888 kg Weight 68.039 kg Physical Exam Narrative: EXAM NARRATIVE: General- confused HEENT- grossly unremarkable CVS- regular rate rhythm Chest- nonlabored respiration Abdomen- ascites, non tender extremity- no edema Urinary Catheter Management^: Valera: Cath Placed During This Visit: yes Urinary Catheter Date of Insertion: 09/09/21 Urinary Catheter Time of Insertion: 18:38 Data : 09/09/21 17:58 09/09/21 17:58 Micro: Microbiology 09/09/21 17:58 Blood Culture - Preliminary Blood SPECIMEN COLLECTED 09/09/21 18:18 Blood Culture - Preliminary Blood SPECIMEN COLLECTED A&P Assessment and plan (1) Acute hepatic encephalopathy: Status: Acute Additional A&P Information #Altered mental status, hepatic encephalopathy #History of liver cirrhosis, #History of esophageal varices #Ascites s/p recent paracentesis #Dysphagia Plan: Ammonia 95 Resume Lactulose 30 gm PO TID Hold if > 2-3 bm/day Bedside swallow - recent on dysphagia diet Recent MRI - no acute CVA #Hypertension Resumed home meds Holding lasix for now #Diabetes mellitus with diabetic neuropathy Sliding scale insulin Hypoglycemia protocol #Lactic Acidosis Possible due to liver failure Repeat in AM #Hypomagnesemia Mag Sulfate 2G IV x1 Repeat Mg level in am #Recent COVID-19 infection Stable #Full code #DVT prophylaxis: SCDS; Heparin - hold due to hx of bleeding Attestations Medical Necessity Statement*: Anticipate over 2 midnights stay in hospital for evaluation treatment Time Spent in Patient Care: Greater than 35 minutes (>than 50% of time spent in counselling and/or direct pt care on unit). Coding Level of Care Code Acute Steam Conditioner Operator for Robbie Agustin Diagnoses Acute hepatic encephalopathy K72.00
[2021-09-09 23:38] VITALS: PULSE 85; RESP 18; O2SAT 98
[2021-09-10] VITALS (7 sets, daily range): BP systolic 145–162; BP diastolic 67–86; PULSE 76–98; RESP 12–18; TEMP 36.5–37.1; O2SAT 96–100
[2021-09-10] MEDS: sodium chloride 0.9% 1,000 ML 75 ML IV (03:57)
[2021-09-10] MEDS: insulin lispro 100 unit/1 mL SUBCUT ×3 (08:22→21:29)
[2021-09-10] MEDS: tamsulosin 0.4 mg Capsule PO (08:26)
[2021-09-10] MEDS: lactulose oral liq 20 gm/30 mL UDC 30 GM PO ×3 (08:26→21:29)
[2021-09-10] MEDS: gabapentin 300 mg Capsule PO (08:27)
[2021-09-10] MEDS: spironolactone 25 mg Tablet PO (08:27)
[2021-09-10] MEDS: pantoprazole DR 40 mg Tablet PO (08:27)
--- NOTE | 2021-09-10 09:51 | PM.PN ---
Subjective Subjective: Interval history: Seen this AM. Patient awake but confused. He took his lactulose this AM. Unwilling to work with PT. Unable to give me much of a history. Vitals/I&O/Wt Last Vital Signs Temp 97.8 F 09/10/21 15:20 Pulse 76 09/10/21 15:20 Resp 12 09/10/21 15:20 BP 153/67 09/10/21 15:20 Pulse Ox 96 09/10/21 15:20 09/10/21 09/10/21 09/10/21 06:59 14:59 22:59 Intake Total 188.75 / 1188.75 52 / 52 Output Total 800 / 800 Balance -611.25 / 388.75 / Weight last 48 hrs Weight 75.16 kg Weight 74.888 kg Weight 68.039 kg Physical Exam Narrative: EXAM NARRATIVE: General: Alert and oriented x1., Patient laying in bed appearing comfortable. Able to swallow as well. Not very cooperative with exam and history taking. HEENT: Normocephalic, atraumatic, EOMI, breathing room air, moist mucous membranes Cardio: Regular rate rhythm, normal S1-S2, no murmurs rubs gallops, Respiratory: Good bilateral air entry, no wheezes no rhonchi appreciated. GI: Abdomen soft, nondistended abdomen, nontender bowel sounds present. Extremities:no edema, no cyanosis Neuro: Able to move all 4 extremities, Urinary Catheter Management^: Valera: Cath Placed During This Visit: yes Reason for Continuing Indwelling Catheter: Other Urinary Catheter Date of Insertion: 09/09/21 Urinary Catheter Time of Insertion: 18:38 Data : 09/09/21 17:58 09/09/21 17:58 Micro: Microbiology 09/09/21 17:58 Blood Culture - Preliminary Blood SPECIMEN COLLECTED 09/09/21 18:18 Blood Culture - Preliminary Blood SPECIMEN COLLECTED A&P Assessment and plan (1) Acute hepatic encephalopathy: Status: Acute Additional A&P Information #Altered mental status, hepatic encephalopathy #History of liver cirrhosis, #History of esophageal varices #Ascites s/p recent paracentesis #Dysphagia Plan: Ammonia 95 Resume Lactulose 30 gm PO TID Hold if > 2-3 bm/day Bedside swallow - recent on dysphagia diet Recent MRI - no acute CVA He is awake a little better now. Will check for ascites with abdominal US #Elevated d-dimer 2.49. Will check dopplers for DVT and CTA chest #Hypertension Resumed home meds Holding lasix for now #Diabetes mellitus with diabetic neuropathy Sliding scale insulin Hypoglycemia protocol #Lactic Acidosis Possible due to liver failure Repeat labs pending. #Hypomagnesemia Resolved #Recent COVID-19 infection Stable #Full code #DVT prophylaxis: SCDS; Heparin - hold due to hx of bleeding All repeat labs pending. WIll review once they result. Attestations Medical Necessity Statement*: > 48 hour stay Coding Level of Care Code Acute Shoe Sewing Machine Operator And Tender for Robbie Agustin Diagnoses Acute hepatic encephalopathy K72.00
[2021-09-10 16:06] LABS: INR 1.32 (0.83-1.21); Prothrombin Time (Patient) 16.7 Seconds (12.0-15.1)
[2021-09-10 16:44] LABS: Glucose Point of Care 113 mg/dL (70-110)
[2021-09-10 18:21] LABS: Basophils % 0.8 %; Eosinophils % 0.5 %; Hematocrit 37.5 % (42.0-52.0); Hemoglobin 12.6 g/dL (11.7-16.6); Lymphocytes # 0.4 10^3/uL (0.8-4.8); Lymphocytes % 11.3 %; Mean Corpuscular HGB Conc 33.6 g/dL (30.0-36.0); Mean Corpuscular Hemoglobin 33.7 pg (28.0-34.0); Mean Corpuscular Volume 100.3 fl (80-94); Mean Platelet Volume 11.1 fL (7.4-10.4); Monocytes # 0.4 10^3/uL (0.2-0.9); Monocytes % 9.6 %; Neutrophils # 2.81 10^3/uL (1.8-7.7); Neutrophils % 77.3 %; Nucleated Red Blood Cells % 0 %; Platelet Count 96 10^3/cmm (130-400); Red Blood Count 3.74 10^6/uL (4.1-5.3); Red Cell Distribution Width 14.8 % (12.1-15.1); White Blood Count 3.6 10^3/uL (4.0-10.0)
[2021-09-10 18:29] LABS: Lactate (Lactic Acid level) 2.3 mmol/L (0.5-2.2)
[2021-09-10 18:30] LABS: Alanine Aminotransferase 25 U/L (0-41); Albumin Level 2.5 g/dL (3.5-5.2); Alkaline Phosphatase 77 IU/L (40-130); Blood Urea Nitrogen 19 mg/dL (8-23); Calcium 7.8 mg/dL (8.5-10.5); Carbon Dioxide 20 mmol/L (22-29); Chloride 109 mmol/L (98-107); Globulin 3.3 g/dL (1.3-4.6); Glucose 129 mg/dL (65-115); Magnesium 1.6 mg/dL (1.7-2.3); Osmolality Calculated 294 mOsm/kg (285-295); Sodium 140 mmol/L (136-145); Total Bilirubin 1.8 mg/dL (0.15-1.2); Total Protein 5.8 g/dL (6.6-8.7)
[2021-09-10 18:37] LABS: Anion Gap 14.6 (5-19); Aspartate Amino Transferase 46 U/L (0-40); Potassium 3.6 mmol/L (3.5-5.1); Procalcitonin 0.13 ng/mL (0-0.5)
[2021-09-10 20:34] LABS: Glucose Point of Care 141 mg/dL (70-110)
[2021-09-10 20:34] LABS: Glucose Point of Care 188 mg/dL (70-110)
[2021-09-10 20:34] LABS: Glucose Point of Care 148 mg/dL (70-110)
[2021-09-11] VITALS (8 sets, daily range): BP systolic 84–144; BP diastolic 48–76; PULSE 60–82; RESP 16–18; TEMP 36.4–36.8; O2SAT 96–100
[2021-09-11 04:14] LABS: ABG PCO2 32.4 mmHg (35-45); Alveolar-Arterial Oxygen Gradi 1.9 mmHg (5-10); Base Excess ABG 2.1 mmol/L (-2.0-2.0); Blood Gas Allen Test Pos; Blood Gas Sample Site Radial, left; Blood Gas Sample Type Arterial; Carboxyhemoglobin 1.3 %THgb (0.4-20.1); HGB O2 Sat 96.5 % (95-100); Ionized Calcium Level - ABG 1.2 mmol/L (1.1-1.4); Methemoglobin 0.7 % (0.4-1.5); Oxygen Device ROOM AIR; Oxygen Saturation ABG 98.5; PO2 ABG 91.7 mmHg (80.0-100.0); Potassium Level - ABG 3.2 mmol/L (3.5-5.0); Total Hemoglobin 11.4 g/dL (14-18)
[2021-09-11 06:27] LABS: Basophils % 0.5 %; Eosinophils # 0.1 10^3/uL (0.0-0.8); Eosinophils % 1.4 %; Hematocrit 31.5 % (42.0-52.0); Hemoglobin 10.9 g/dL (11.7-16.6); Lymphocytes # 0.5 10^3/uL (0.8-4.8); Lymphocytes % 11.3 %; Mean Corpuscular HGB Conc 34.6 g/dL (30.0-36.0); Mean Corpuscular Hemoglobin 32.8 pg (28.0-34.0); Mean Corpuscular Volume 94.9 fl (80-94); Mean Platelet Volume 9.9 fL (7.4-10.4); Monocytes # 0.5 10^3/uL (0.2-0.9); Monocytes % 11.6 %; Neutrophils # 3.22 10^3/uL (1.8-7.7); Neutrophils % 74.5 %; Nucleated Red Blood Cells % 0 %; Platelet Count 101 10^3/cmm (130-400); Red Blood Count 3.32 10^6/uL (4.1-5.3); Red Cell Distribution Width 14.4 % (12.1-15.1); White Blood Count 4.3 10^3/uL (4.0-10.0)
[2021-09-11 06:30] LABS: Glucose Point of Care 121 mg/dL (70-110)
[2021-09-11 06:33] LABS: INR 1.27 (0.8-1.2)
[2021-09-11 06:50] LABS: Alanine Aminotransferase 23 U/L (0-41); Albumin Level 2.5 g/dL (3.5-5.2); Alkaline Phosphatase 71 IU/L (40-130); Anion Gap 10.4 (5-19); Aspartate Amino Transferase 36 U/L (0-40); Blood Urea Nitrogen 15 mg/dL (8-23); Calcium 7.9 mg/dL (8.5-10.5); Carbon Dioxide 25 mmol/L (22-29); Chloride 108 mmol/L (98-107); Glucose 113 mg/dL (65-115); Magnesium 1.5 mg/dL (1.7-2.3); Osmolality Calculated 292 mOsm/kg (285-295); Potassium 3.4 mmol/L (3.5-5.1); Sodium 140 mmol/L (136-145); Total Bilirubin 1.8 mg/dL (0.15-1.2); Total Protein 5.5 g/dL (6.6-8.7)
[2021-09-11 06:57] LABS: Procalcitonin 0.13 ng/mL (0-0.5)
[2021-09-11] MEDS: lactulose oral liq 20 gm/30 mL UDC 30 GM PO ×3 (07:34→21:50)
[2021-09-11] MEDS: spironolactone 25 mg Tablet PO (07:34)
[2021-09-11] MEDS: gabapentin 300 mg Capsule PO (07:34)
[2021-09-11] MEDS: tamsulosin 0.4 mg Capsule PO (07:34)
[2021-09-11] MEDS: pantoprazole DR 40 mg Tablet PO (07:34)
--- NOTE | 2021-09-11 10:06 | PC.NURSE ---
Dr. Alonso notified at this time of patient refusing IV. New orders received to keep IV out and orders will be po only for now
[2021-09-11] MEDS: potassium chloride ER 20 mEq Tablet 40 MEQ PO (10:30)
[2021-09-11] MEDS: magnesium oxide 400 mg tablet PO ×2 (10:30→17:04)
[2021-09-11 11:30] LABS: Glucose Point of Care 199 mg/dL (70-110)
[2021-09-11 11:39] LABS: Adenovirus Not Detected (NOT DETECT); Chlamydia Pneumoniae Not Detected (NOT DETECT); Coronavirus 229E,HKU1,NL63,OC4 Not Detected (NOT DETECT); Human Metapneumovirus Not Detected (NOT DETECT); Human Rhinovirus/Enterovirus Not Detected (NOT DETECT); Influenza A Not Detected (NOT DETECT); Influenza A H1 Not Detected (NOT DETECT); Influenza A H1-2009 Not Detected (NOT DETECT); Influenza A H3 Not Detected (NOT DETECT); Influenza B Not Detected (NOT DETECT); Mycoplasma Pneumoniae Not Detected (NOT DETECT); Parainfluenza Virus Type 1 Not Detected (NOT DETECT); Parainfluenza Virus Type 2 Not Detected (NOT DETECT); Parainfluenza Virus Type 3 Not Detected (NOT DETECT); Parainfluenza Virus Type 4 Not Detected (NOT DETECT); Respiratory Syncytial Virus A Not Detected (NOT DETECT); Respiratory Syncytial Virus B Not Detected (NOT DETECT); SARS-COV-2 Not Detected (NOT DETECT)
[2021-09-11] MEDS: insulin lispro 100 unit/1 mL SUBCUT ×3 (11:48→21:50)
--- NOTE | 2021-09-11 12:41 | P.PN_ITS ---
Subjective Subjective: Interval history: Seen this AM. Pt still confused but following commands. Awake and alert but not oriented. Vitals/I&O/Wt Last Vital Signs Temp 98.0 F 09/11/21 10:59 Pulse 60 09/11/21 10:59 Resp 16 09/11/21 10:59 BP 105/48 09/11/21 10:59 Pulse Ox 98 09/11/21 10:59 09/10/21 09/11/21 09/11/21 22:59 06:59 14:59 Intake Total 240 / 240 Output Total 1250 / 1250 Balance -1250 / -1078 240 / 240 Weight last 48 hrs Weight 71.123 kg Weight 75.16 kg Weight 74.888 kg Weight 68.039 kg Physical Exam Narrative: EXAM NARRATIVE: General: Alert and oriented x1., Patient laying in bed appearing comfortable. Able to follow commands today. HEENT: Normocephalic, atraumatic, EOMI, breathing room air, moist mucous membranes Cardio: Regular rate rhythm, normal S1-S2, no murmurs rubs gallops, Respiratory: Good bilateral air entry, no wheezes no rhonchi appreciated. GI: Abdomen soft, mildly distended abdomen, nontender bowel sounds present. No fluid wave appreciated. Extremities:no edema, no cyanosis Neuro: Able to move all 4 extremities, Urinary Catheter Management^: Valera: Cath Placed During This Visit: yes Reason for Continuing Indwelling Catheter: Other Urinary Catheter Date of Insertion: 09/09/21 Urinary Catheter Time of Insertion: 18:38 Data : 09/11/21 06:00 09/11/21 06:00 Micro: Microbiology 09/09/21 17:58 Blood Culture - Preliminary Blood NEGATIVE TO DATE 09/09/21 18:18 Blood Culture - Preliminary Blood NEGATIVE TO DATE A&P Assessment and plan (1) Acute hepatic encephalopathy: Status: Acute Additional A&P Information Ammonia 95 at admission. Resume Lactulose 30 gm PO TID Hold if > 2-3 bm/day Bedside swallow - recent on dysphagia diet. Nutrition recommendations appreciated. Recent MRI - no acute CVA He is awake a little better now., Oriented to himself, following commands, abdomen soft, afebrile, SBP less likely Will check for ascites with abdominal US - Patient refused the study yesterday CTA chest also ordered. Result pending. High lactic acid secondary to liver disorder, no acute signs of infection, he is not hypotensive procalcitonin unremarkable #Elevated d-dimer 2.49. Will check dopplers for DVT and CTA chest #Hypertension Resumed home meds Initiate Lasix along spironolactone Hypokalemia: Repleted #Full code #DVT prophylaxis: SCDS; Heparin - hold due to hx of bleeding. Platelet count 101 Attestations Medical Necessity Statement*: Continue to monitor, plan to discharge in next 24 to 36 hours patient still confused and not back to baseline. Time Spent in Patient Care: less than 15 minutes Coding Level of Care Code Acute Department [employer] for [facility] Fwd Diagnoses Acute hepatic encephalopathy K72.00
[2021-09-11 17:11] LABS: Glucose Point of Care 216 mg/dL (70-110)
[2021-09-11 21:13] LABS: Glucose Point of Care 178 mg/dL (70-110)
[2021-09-12] VITALS (7 sets, daily range): BP systolic 107–148; BP diastolic 62–78; PULSE 64–78; RESP 16–18; TEMP 36.4–37.1; O2SAT 94–99
[2021-09-12 07:02] LABS: Basophils % 0.5 %; Eosinophils # 0.3 10^3/uL (0.0-0.8); Eosinophils % 6.7 %; Hematocrit 33.1 % (42.0-52.0); Hemoglobin 11.6 g/dL (11.7-16.6); Lymphocytes # 0.6 10^3/uL (0.8-4.8); Lymphocytes % 16.9 %; Mean Corpuscular Hemoglobin 32.6 pg (28.0-34.0); Mean Platelet Volume 10.5 fL (7.4-10.4); Monocytes # 0.4 10^3/uL (0.2-0.9); Monocytes % 9.4 %; Neutrophils # 2.47 10^3/uL (1.8-7.7); Neutrophils % 66.2 %; Nucleated Red Blood Cells % 0 %; Platelet Count 101 10^3/cmm (130-400); Red Blood Count 3.56 10^6/uL (4.1-5.3); Red Cell Distribution Width 14.4 % (12.1-15.1); White Blood Count 3.7 10^3/uL (4.0-10.0)
[2021-09-12 07:21] LABS: Anion Gap 12.8 (5-19); Blood Urea Nitrogen 14 mg/dL (8-23); Calcium 7.6 mg/dL (8.5-10.5); Carbon Dioxide 22 mmol/L (22-29); Chloride 108 mmol/L (98-107); Glucose 155 mg/dL (65-115); Magnesium 1.7 mg/dL (1.7-2.3); Osmolality Calculated 292 mOsm/kg (285-295); Potassium 3.8 mmol/L (3.5-5.1); Sodium 139 mmol/L (136-145)
[2021-09-12] MEDS: lactulose oral liq 20 gm/30 mL UDC 30 GM PO ×3 (09:00→21:34)
[2021-09-12] MEDS: gabapentin 300 mg Capsule PO (09:01)
[2021-09-12] MEDS: magnesium oxide 400 mg tablet PO ×2 (09:01→17:35)
[2021-09-12] MEDS: FUROsemide 20 mg Tablet PO (09:01)
[2021-09-12] MEDS: spironolactone 25 mg Tablet PO (09:01)
[2021-09-12] MEDS: pantoprazole DR 40 mg Tablet PO (09:01)
[2021-09-12] MEDS: tamsulosin 0.4 mg Capsule PO (09:01)
[2021-09-12 09:02] LABS: Glucose Point of Care 179 mg/dL (70-110)
[2021-09-12] MEDS: insulin lispro 100 unit/1 mL SUBCUT ×4 (09:10→21:34)
--- NOTE | 2021-09-12 10:15 | PC.NURSE ---
Updated patients sister, Mikala, on plan of care and current condition, requests heater to be turned up states , when I visited yesterday it was cold in his room and he always gets cold easy. Patient thermostat increased. provided warm blanket. Valera stat lock changed, denies pain or further needs.
--- NOTE | 2021-09-12 12:13 | P.PN_ITS ---
Subjective Subjective: Interval history: Patient is awaiting placement, he is much more awake and alert able to tell me his date of , oriented to time place and person He is able to tell me his sister's name as well Vitals/I&O/Wt Last Vital Signs Temp 98.5 F 09/12/21 08:00 Pulse 70 09/12/21 08:00 Resp 16 09/12/21 08:00 BP 132/72 09/12/21 08:00 Pulse Ox 98 09/12/21 08:00 09/11/21 09/12/21 09/12/21 22:59 06:59 14:59 Intake Total 240 / 600 Output Total 400 / 400 450 / 850 Balance -160 / 200 -450 / -250 Weight last 48 hrs Weight 72.439 kg Weight 71.123 kg Physical Exam Narrative: EXAM NARRATIVE: Resting comfortably Supine No active signs of hepatic encephalopathy No asterixis Abdomen nondistended nontender Legs without edema EOMI, PERRLA Saturating well on room air Urinary Catheter Management^: Valera: Cath Placed During This Visit: yes Reason for Continuing Indwelling Catheter: Other Urinary Catheter Date of Insertion: 09/09/21 Urinary Catheter Time of Insertion: 18:38 Data : 09/12/21 06:39 09/12/21 06:39 A&P Assessment and plan (1) Acute hepatic encephalopathy: Hepatic encephalopathy: Improved Awaiting placement Status: Acute Additional A&P Information Recurrent ascites no active decompensation Abdomen is nontender no signs of fever Would use low-dose diuretics for now Continue rifaximin and lactulose Full code Attestations Medical Necessity Statement*: Awaiting placement Time Spent in Patient Care: less than 15 minutes Coding Level of Care Code Acute Assembler Rubber Footwear for Robbie Agustin Diagnoses Acute hepatic encephalopathy K72.00
[2021-09-12 12:15] LABS: Glucose Point of Care 211 mg/dL (70-110)
--- NOTE | 2021-09-12 12:39 | PC.SOCIAL ---
IMM updated IMM updated with patient. Verbalized an understanding. Copy Pg 2 provided. Initialled, dated, timed, and placed in chart.
[2021-09-12 16:45] LABS: Glucose Point of Care 164 mg/dL (70-110)
[2021-09-12 17:02] LABS: Glucose Point of Care 167 mg/dL (70-110)
[2021-09-12 21:38] LABS: Glucose Point of Care 189 mg/dL (70-110)
[2021-09-13 04:00] VITALS: BP 143/68; PULSE 72; RESP 19; TEMP 37; O2SAT 98
[2021-09-13 06:56] LABS: Glucose Point of Care 187 mg/dL (70-110)
[2021-09-13 08:00] VITALS: BP 130/68; PULSE 68; RESP 20; TEMP 36.5; O2SAT 98
[2021-09-13] MEDS: insulin lispro 100 unit/1 mL SUBCUT ×2 (08:35→12:56)
[2021-09-13] MEDS: lactulose oral liq 20 gm/30 mL UDC 30 GM PO (08:35)
[2021-09-13] MEDS: spironolactone 25 mg Tablet PO (08:36)
[2021-09-13] MEDS: magnesium oxide 400 mg tablet PO (08:36)
[2021-09-13] MEDS: gabapentin 300 mg Capsule PO (08:36)
[2021-09-13] MEDS: pantoprazole DR 40 mg Tablet PO (08:36)
[2021-09-13] MEDS: FUROsemide 20 mg Tablet PO (08:36)
[2021-09-13] MEDS: tamsulosin 0.4 mg Capsule PO (08:36)
[2021-09-13 11:28] LABS: Glucose Point of Care 217 mg/dL (70-110)
--- NOTE | 2021-09-13 11:49 | PM.DCS ---
Discharge Providers Date of Admission: 09/09/21 21:33 Date of Discharge: September 13, 2021 Attending Provider at Admission: Kalie Huffman Attending Provider at Discharge: Mingo Alonso MD Primary Care Provider: Gary Deras MD Diagnoses at Discharge Discharge Diagnosis (1) Acute hepatic encephalopathy: Status: Acute Reason for Visit Reason for Visit: UNRESPONSIVE; STROKE LIKE SYMPTOMS Hospital Course Hospital Course This patient has history of liver cirrhosis, portal hypertension, recurrent ascites, follows up with Dr. Deras for paracentesis, was recently discharged from the hospital to [facility] for rehab presented to the hospital with worsening confusion. Nursing staff reported that he has refused his medications at the [facility] that resulted in worsening of underlying hepatic encephalopathy. His mentation in the hospital improved with use of lactulose. We had to mix lactulose and a Sprite in order to give him appropriate dosages otherwise he would refuse most of the medications and labs. His ammonia was high at the time of admission. On the day of discharge he is back to his baseline. Sister is at the bedside. He refused physical therapy evaluation this time however willing to do self-pay at [facility]. He will pay $155 per day. Discharge planners diligently worked on his case. He will go back to [facility] with low-dose of spironolactone, Lasix, rifaximin and lactulose prescription. He is high risk for readmissions because of his noncooperative behavior. Physical Exam Narrative: EXAM NARRATIVE: Seems back to baseline Nonfocal neuro exam He does not cooperate really well for physical examination however no asterixis No worsening of ascites Soft abdomen Looks well-hydrated Breathing well on room air Nonfocal neuro exam No audible stridor or wheezing Urinary Catheter Management^: Valera: Cath Placed During This Visit: yes Reason for Continuing Indwelling Catheter: Acute Urinary Retention or Obstruction Urinary Catheter Date of Insertion: 09/09/21 Urinary Catheter Time of Insertion: 18:38 Discharge Data Data Completed and Pending: Completed Studies During Hospitalization Category Date Time Status CT head wo con* 7 0450 Urgent Cat Scan 09/09/21 18:16 Completed XR chest 1V teri ble 32569 Urgent Exams 09/09/21 18:16 Completed Pending at discharge Category Date Time Status Blood Culture Sta t Lab 09/09/21 17:58 Results Labs from last 24 hours 12/09/13/21 09/12/21 11:21 06:53 20:58 POC Glucose 217 H 187 H 189 H 09/12/21 09/12/21 09/12/21 16:59 11:59 06:26 POC Glucose 167 H 211 H 164 H Vitals: Last Vital Signs Temp 97.7 F 09/13/21 08:00 Pulse 68 09/13/21 08:00 Resp 20 H 09/13/21 08:00 BP 130/68 09/13/21 08:00 Pulse Ox 98 09/13/21 08:00 Discharge Plan Discharge Patient Disposition: Xfer SNF Condition: Stable Prescriptions: New potassium chloride 10 mEq capsule, extended release 10 meq PO DAILY Qty: 30 RF: 3 Continued tamsulosin 0.4 mg capsule 0.4 mg PO DAILY RF: 0 Levemir FlexTouch U-100 Insuln 100 unit/mL (3 mL) insulin pen 10 unit SUBCUT DAILY RF: 0 nadolol 20 mg Tablet 20 mg PO DAILY Qty: 30 RF: 0 furosemide [Lasix] 20 mg tablet 20 mg PO DAILY Qty: 30 RF: 0 spironolactone 25 mg tablet 25 mg PO DAILY Qty: 30 RF: 0 rifaximin 200 mg Tablet 400 mg PO BID RF: 0 lactulose 20 gram/30 mL Solution 20 g PO BID Qty: 60 RF: 3 Discontinued levofloxacin 750 mg Tablet 750 mg PO DAILY@0600 Qty: 5 RF: 0 gabapentin 300 mg capsule 300 mg PO DAILY RF: 0 Discharge Orders: Discharge Order (Routine); Ordered 09/13/21 Ordered By: Mingo Alonso Referrals: Gary Deras MD [Primary Care Provider] - 09/21/21 9:45 am Discharge Diet: Cardiac Discharge Activity: Increase activity as tolerated Patient Instructions: Potassium Chloride (By mouth), Hepatic Encephalopathy (GEN) Discharge Attestations Time Spent in Discharge Care*: less than 30 min Quality Metrics Clinical Quality Measures During this hospital stay, did patient experience: None Coding Level of Care Code Acute Chg FW DC note Diagnoses Acute hepatic encephalopathy K72.00
[2021-09-13 12:00] VITALS: BP 111/67; PULSE 66; RESP 18; TEMP 36.6; O2SAT 97
[2021-09-13 13:21] LABS: SARS Covid-2 Antigen Negative (Negative)
--- NOTE | 2021-09-13 13:33 | PC.NURSE ---
Report called to Ana Luisa at [facility].
--- NOTE | 2021-09-13 14:55 | PC.NURSE ---
patient was dressed and wheeled down to [facility] transportation personnel. Negative covid test printed and given to transportation personnel.
[2021-09-13 14:57] VITALS: BP 111/67; PULSE 66; RESP 18; TEMP 36.6; O2SAT 97
== END 2021-09-13 14:58 | disposition skilled nursing facility (03) | DRG 442 ==
LOC: ER 21:31 → MEDSURG 21:46
PROVIDERS: Internal Medicine; Admitting Provider Hospitalist; Emergency Provider Emergency Medicine; PCP Internal Medicine; Visit Provider Internal Medicine
DX: K72.00 Acute and subacute hepatic failure without coma (principal); K76.6 Portal hypertension; K70.31 Alcoholic cirrhosis of liver with ascites; F10.10 Alcohol abuse, uncomplicated; E11.65 Type 2 diabetes mellitus with hyperglycemia; E11.42 Type 2 diabetes mellitus with diabetic polyneuropathy; E83.42 Hypomagnesemia; Z86.16 Personal history of COVID-19; E87.6 Hypokalemia
CPT/HCPCS: 36415; 36416; 36600; 51702; 70450; 71045; 80048; 80051; 80053; 81001; 82140; 82330; 82550; 82803; 82805; 82962; 83605; 83735; 83880; 84145; 84484; 85025; 85378; 85610; 86140; 87040; 87426; 87635; 92523; 92610; 93005; 94664; 96360; 96372; 97165; 99285; 99291; 99292; J1815; J3475; J7030

== ENCOUNTER → 2022-04-04 10:02 | Outpatient (BNVA) | payer MEDICARE, SELFPAY | PROVIDERS: PCP Internal Medicine; Visit Provider Specialist | DX: S42.201A Unspecified fracture of upper end of right humerus, initial encounter for closed fracture (principal); W19.XXXA Unspecified fall, initial encounter | CPT/HCPCS: 23600; 73030; 99203 ==